=== PATIENT | male | born 1965 | race Caucasian/White ===

== ENCOUNTER 2018-07-31 20:40 | Inpatient (IN) | payer MEDICARE, MEDICAID ==
[~2018-07-31] VITALS: Ht 175.3 cm; Wt 88.0 kg
[~2018-07-31 20:40] MED LIST: QUET300T2 PO; ZIPR40CA2 PO; ZIPR80CA2 PO
[2018-07-31] MEDS ORDERED: LOSA25TA16 PO (20:52)
[2018-07-31] MEDS ORDERED: BENZ1TAB10 PO (20:52)
[2018-07-31 20:58] LABS: GLUCOSE,POINT OF CARE 112 MG/DL (70-110)
[2018-07-31 21:08] LABS: CALCIUM, TOTAL 8.6 mg/dL (8.8-10.5); CREATININE 1.37 mg/dL (0.60-1.30); POTASSIUM 4.7 mmol/L (3.5-5.1)
[2018-07-31 21:11] LABS: BASOPHILS % (AUTO) 0.6 % (0.0-2.0); EOSINOPHILS % (AUTO) 0 % (1.0-6.0); LYMPHOCYTES # (AUTO) 1.7 K/uL (1.0-4.8); LYMPHOCYTES % (AUTO) 16.5 % (22.0-44.0); MEAN CORPUSCULAR HEMOGLOBIN 32.5 pg (26.0-34.0); MEAN CORPUSCULAR VOLUME 93 fL (80-100); MONOCYTES # (AUTO) 0.4 K/uL (0.1-1.0); MONOCYTES % (AUTO) 4.1 % (2.0-9.0); NEUTROPHILS # (AUTO) 8.3 K/uL (1.8-7.7); NEUTROPHILS % (AUTO) 78.8 % (40.0-70.0); PLATELET COUNT (AUTO) 246 K/uL (150-450); RED CELL DISTRIBUTION WIDTH 14.4 % (11.5-14.5)
[2018-07-31 21:15] LABS: ALBUMIN 4.6 g/dL (3.4-5.0); BILIRUBIN,TOTAL 0.7 mg/dL (0.1-1.0); TOTAL PROTEIN, SERUM 8.2 g/dL (6.4-8.2)
[2018-07-31] MEDS ORDERED: LORazepam 1 MG TABLET PO ONE (21:15)
[2018-07-31 21:33] LABS: HEMATOCRIT 57.7 % (41-53); HEMOGLOBIN 20.2 g/dL (13.5-17.5)
[2018-07-31 23:36] LABS: AMPHET/METH SCREEN,URINE NEGATIVE (NEGATIVE); BARBITURATE SCREEN, URINE NEGATIVE (NEGATIVE); BENZODIAZEPINES SCREEN,URINE NEGATIVE (NEGATIVE); CANNABINOID SCREEN,URINE NEGATIVE (NEGATIVE); COCAINE SCREEN,URINE NEGATIVE (NEGATIVE); METHADONE SCREEN, URINE NEGATIVE (NEGATIVE); OPIATE SCREEN,URINE NEGATIVE (NEGATIVE); PHENCYCLIDINE SCREEN,URINE NEGATIVE (NEGATIVE)
[2018-08-01] MEDS ORDERED: ONDANSETRON HCL 4 MG TABLET PO ONE (00:30)
[2018-08-01] MEDS ORDERED: ZOLPIDEM TARTRATE 10 MG TABLET PO PRN (02:30)
[2018-08-01] MEDS ORDERED: LORazepam 2 MG TABLET ONE (02:51)
[2018-08-01] MEDS: LORazepam 2 MG TABLET PO PRN (02:57)
[2018-08-01] MEDS ORDERED: QUEtiapine FUMARATE 300 MG TABLET PO ONE ×2 (03:45→21:00)
[2018-08-01] MEDS ORDERED: SODIUM CHLORIDE 0.9% 1,000 ML IV ONE (08:00)
[2018-08-01 12:42] VITALS: BP 126/94
[2018-08-01] MEDS ORDERED: PNEUMOCOCCAL VACCINE POLYVALENT 0.5 ML VIAL [PPSV23] IM ONE (15:00)
[2018-08-01 16:00] VITALS: BP 118/92
[2018-08-01] MEDS: NICOTINE 14 MG/24 HOUR PATCH TD SCH (16:26)
[2018-08-02] VITALS (8 sets, daily range): BP systolic 116–139; BP diastolic 70–84
[2018-08-02] MEDS: LOSARTAN POTASSIUM 25 MG TABLET PO SCH (08:31)
[2018-08-02] MEDS: LORazepam 2 MG TABLET PO PRN (08:33)
[2018-08-02] MEDS: NICOTINE 14 MG/24 HOUR PATCH TD SCH (08:34)
[2018-08-02 08:49] LABS: CHOL/HDL RATIO 2.9 (4.2-7.3)
[2018-08-02] MEDS: BENZTROPINE MESYLATE 1 MG TABLET PO SCH (12:37)
[2018-08-02] MEDS: GABAPENTIN 100 MG CAPSULE PO SCH ×3 (12:37→20:45)
[2018-08-02] MEDS: QUEtiapine FUMARATE 300 MG TABLET PO SCH ×2 (12:37→20:45)
[2018-08-02] MEDS: TraMADol HCL 50 MG TABLET PO PRN (15:02)
[2018-08-03 01:17] VITALS: BP 110/82
[2018-08-03] MEDS: LOSARTAN POTASSIUM 25 MG TABLET PO SCH (08:08)
[2018-08-03] MEDS: BENZTROPINE MESYLATE 1 MG TABLET PO SCH (08:08)
[2018-08-03] MEDS: QUEtiapine FUMARATE 300 MG TABLET PO SCH ×2 (08:08→20:08)
[2018-08-03] MEDS: NICOTINE 14 MG/24 HOUR PATCH TD SCH (08:09)
[2018-08-03] MEDS: GABAPENTIN 100 MG CAPSULE PO SCH ×3 (08:09→20:07)
[2018-08-03] MEDS: LORazepam 2 MG TABLET PO PRN (09:11)
[2018-08-03 10:08] VITALS: BP 119/78
[2018-08-03 16:32] VITALS: BP 128/70
[2018-08-03 20:33] VITALS: BP 123/90
[2018-08-03] MEDS: TraMADol HCL 50 MG TABLET PO PRN (20:33)
[2018-08-04 00:35] VITALS: BP 139/87
[2018-08-04] MEDS: LOSARTAN POTASSIUM 25 MG TABLET PO SCH (08:14)
[2018-08-04] MEDS: BENZTROPINE MESYLATE 1 MG TABLET PO SCH (08:14)
[2018-08-04] MEDS: QUEtiapine FUMARATE 300 MG TABLET PO SCH ×2 (08:14→20:31)
[2018-08-04] MEDS: GABAPENTIN 100 MG CAPSULE PO SCH ×3 (08:14→20:31)
[2018-08-04] MEDS: NICOTINE 14 MG/24 HOUR PATCH TD SCH (08:15)
[2018-08-04 08:38] VITALS: BP 120/78
[2018-08-04 16:00] VITALS: BP 117/88
[2018-08-04 21:03] VITALS: BP 123/83
[2018-08-04] MEDS: TraMADol HCL 50 MG TABLET PO PRN (21:06)
[2018-08-05 04:44] VITALS: BP 120/81
[2018-08-05 08:44] VITALS: BP 121/71
[2018-08-05] MEDS: BENZTROPINE MESYLATE 1 MG TABLET PO SCH (09:34)
[2018-08-05] MEDS: NICOTINE 14 MG/24 HOUR PATCH TD SCH (09:34)
[2018-08-05] MEDS: QUEtiapine FUMARATE 300 MG TABLET PO SCH (09:34)
[2018-08-05] MEDS: GABAPENTIN 100 MG CAPSULE PO SCH (09:34)
[2018-08-05] MEDS: LOSARTAN POTASSIUM 25 MG TABLET PO SCH (09:38)
[2018-08-05] MEDS ORDERED: QUET50TA PO (12:23)
[2018-08-05] MEDS ORDERED: GABA-529 PO (12:24)
[2018-08-05] MEDS ORDERED: NICO1PAT49 TD (12:26)
== END 2018-08-05 13:30 | disposition home or self-care (01) | DRG 885 ==
LOC: EMS 20:41 → B2X 08-01 10:54
PROVIDERS: ADMIT Psychiatry & Neurology Psychiatry; ATTEND Psychiatry & Neurology Child & Adolescent Psychiatry
DX: F25.1 Schizoaffective disorder, depressive type (principal); B18.1 Chronic viral hepatitis B without delta-agent; R45.851 Suicidal ideations; Z23 Encounter for immunization; J44.9 Chronic obstructive pulmonary disease, unspecified; I10 Essential (primary) hypertension; K74.60 Unspecified cirrhosis of liver; D75.1 Secondary polycythemia; Z91.5 Personal history of self-harm; B19.20 Unspecified viral hepatitis C without hepatic coma; F10.10 Alcohol abuse, uncomplicated; Z88.8 Allergy status to other drugs, medicaments and biological substances; Z96.662 Presence of left artificial ankle joint
CPT/HCPCS: 90686; 90732; 96360; G0480; J7030; Q0162

== ENCOUNTER 2018-10-05 20:05 | Emergency (ER) | payer MEDICARE, OTHER ==
[~2018-10-05] VITALS: Ht 167.6 cm; Wt 94.0 kg
[~2018-10-05 20:05] MED LIST changes: +BENZ1TAB10 PO; +GABA-529 PO; +LOSA25TA41 PO; +NICO1PAT49 TD; +QUET50TA PO; -ZIPR40CA2 PO; -ZIPR80CA2 PO
[2018-10-05 22:40] LABS: AMPHET/METH SCREEN,URINE NEGATIVE (NEGATIVE); BARBITURATE SCREEN, URINE NEGATIVE (NEGATIVE); BENZODIAZEPINES SCREEN,URINE NEGATIVE (NEGATIVE); CANNABINOID SCREEN,URINE NEGATIVE (NEGATIVE); COCAINE SCREEN,URINE NEGATIVE (NEGATIVE); METHADONE SCREEN, URINE NEGATIVE (NEGATIVE); OPIATE SCREEN,URINE NEGATIVE (NEGATIVE)
[2018-10-05 22:42] LABS: PHENCYCLIDINE SCREEN,URINE NEGATIVE (NEGATIVE)
[2018-10-06 00:24] VITALS: BP 141/78
== END 2018-10-06 00:38 | disposition home or self-care (01) ==
LOC: EMS 20:06
DX: F10.229 Alcohol dependence with intoxication, unspecified (principal); I10 Essential (primary) hypertension; J44.9 Chronic obstructive pulmonary disease, unspecified; Y90.8 Blood alcohol level of 240 mg/100 ml or more; Z88.8 Allergy status to other drugs, medicaments and biological substances; Z79.899 Other long term (current) drug therapy
CPT/HCPCS: 36415; 80307; 99283; G0480

== ENCOUNTER 2018-10-06 00:55 | Emergency (ER) | payer MEDICARE, OTHER ==
[~2018-10-06] VITALS: Ht 167.6 cm; Wt 77.3 kg
[2018-10-06 00:58] VITALS: BP 134/84
== END 2018-10-06 02:36 | disposition left against medical advice (07) ==
LOC: EMS 00:56
DX: Z53.21 Procedure and treatment not carried out due to patient leaving prior to being seen by health care provider (principal)

== ENCOUNTER 2018-10-21 17:51 | Inpatient (IN) | payer MEDICARE, MEDICAID ==
[~2018-10-21] VITALS: Ht 175.3 cm; Wt 92.1 kg
[2018-10-21 18:26] VITALS: BP 129/86
[2018-10-21] MEDS ORDERED: LORazepam 2 MG TABLET PO PRN (19:00)
[2018-10-21] MEDS ORDERED: ZOLPIDEM TARTRATE 10 MG TABLET PO PRN (19:00)
[2018-10-21] MEDS ORDERED: ChlorproMAZINE HCL 100 MG TABLET PO PRN (19:00)
[2018-10-21] MEDS ORDERED: -PHARMACY VACCINE NOTE- MISC ONE (19:45)
[2018-10-21 19:46] VITALS: BP 142/70
[2018-10-21] MEDS: QUEtiapine FUMARATE 200 MG TABLET PO SCH (20:24)
[2018-10-21] MEDS: GABAPENTIN 400 MG CAPSULE PO SCH (20:24)
[2018-10-21] MEDS ORDERED: MAGNESIUM HYDROXIDE SUSPENSION 30 ML UDCUP PO PRN (22:30)
[2018-10-21] MEDS ORDERED: PETROLATUM,WHITE 71 GM JELLY TP PRN (22:30)
[2018-10-21] MEDS ORDERED: BENZOCAINE/MENTHOL LOZENGE MM PRN (22:30)
[2018-10-21] MEDS ORDERED: BACITRACIN 28.4 GM OINTMENT TP PRN (22:30)
[2018-10-21] MEDS ORDERED: ACETAMINOPHEN 325 MG TABLET PO PRN (22:30)
[2018-10-21] MEDS ORDERED: LOPERAMIDE HCL 2 MG CAPSULE PO PRN (22:30)
[2018-10-21] MEDS ORDERED: IBUPROFEN 600 MG TABLET PO PRN (22:30)
[2018-10-21] MEDS ORDERED: MAG HYDROX/AL HYDROX/SIMETH ES 30 ML SUSPENSION UDCUP PO PRN (22:30)
[2018-10-21] MEDS ORDERED: ALBUTEROL SULFATE HFA 90 MCG/PUFF 8 GM INHALER IH PRN (22:30)
[2018-10-21] MEDS ORDERED: ONDANSETRON HCL 4 MG TABLET PO PRN (22:30)
[2018-10-21] MEDS ORDERED: CloNIDine HCL 0.1 MG TABLET PO PRN (22:30)
[2018-10-22] VITALS (13 sets, daily range): BP systolic 107–139; BP diastolic 68–92
[2018-10-22] MEDS: DOCUSATE SODIUM 100 MG CAPSULE PO SCH (08:27)
[2018-10-22] MEDS: OMEPRAZOLE 20 MG CAPSULE PO SCH (08:27)
[2018-10-22] MEDS: LOSARTAN POTASSIUM 25 MG TABLET PO SCH (08:27)
[2018-10-22] MEDS: GABAPENTIN 400 MG CAPSULE PO SCH ×3 (08:27→16:31)
[2018-10-22] MEDS: QUEtiapine FUMARATE 100 MG TABLET PO SCH ×2 (08:27→16:31)
[2018-10-22] MEDS: NICOTINE 21 MG/24 HOUR PATCH TD SCH (08:28)
[2018-10-22 08:34] LABS: BASOPHILS % (AUTO) 0.5 % (0.0-2.0); EOSINOPHILS % (AUTO) 0.2 % (1.0-6.0); HEMOGLOBIN 16.6 g/dL (13.5-17.5); HEMOGLOBIN A1C 5.6 % (4.5-6.2); LYMPHOCYTES # (AUTO) 1.4 K/uL (1.0-4.8); LYMPHOCYTES % (AUTO) 16.4 % (22.0-44.0); MEAN CORPUSCULAR HEMOGLOBIN 31.8 pg (26.0-34.0); MEAN CORPUSCULAR HGB CONC 34.6 G/dL (31.0-37.0); MEAN CORPUSCULAR VOLUME 92 fL (80-100); MONOCYTES # (AUTO) 0.8 K/uL (0.1-1.0); MONOCYTES % (AUTO) 9.3 % (2.0-9.0); NEUTROPHILS # (AUTO) 6.5 K/uL (1.8-7.7); NEUTROPHILS % (AUTO) 73.6 % (40.0-70.0); PLATELET COUNT (AUTO) 215 K/uL (150-450); RED BLOOD CELL COUNT(AUTO) 5.22 MIL/uL (4.50-5.90); RED CELL DISTRIBUTION WIDTH 13.9 % (11.5-14.5)
[2018-10-22 09:03] LABS: ALANINE AMINOTRANSFERASE 153 U/L (12-78); ALBUMIN 3.6 g/dL (3.4-5.0); ALKALINE PHOSPHATASE 70 U/L (46-116); ANION GAP 14 mmol/L (8-16); ASPARTATE AMINOTRANSFERASE 75 U/L (15-37); BILIRUBIN,TOTAL 0.9 mg/dL (0.1-1.0); CALCIUM, TOTAL 8.1 mg/dL (8.8-10.5); CARBON DIOXIDE 24 mmol/L (22-29); CHLORIDE 94 mmol/L (98-107); CHOL/HDL RATIO 3.6 (4.2-7.3); CHOLESTEROL 229 mg/dL (131-200); CREATININE 0.95 mg/dL (0.60-1.30); FREE T4 (FREE THYROXINE) 0.75 ng/dL (0.76-1.46); GLOMERULAR FILTR. RATE CALC > 60 mL/min (>60); GLUCOSE,RANDOM 102 mg/dL (70-110); HDL CHOLESTEROL 64 mg/dL (40-60); LDL CHOL (CALC.) 116 mg/dL (0-130); POTASSIUM 3.9 mmol/L (3.5-5.1); SODIUM SERUM 132 mmol/L (136-145); THYROID STIMULATING HORMONE 0.85 uIU/mL (0.36-3.74); TOTAL PROTEIN, SERUM 6.5 g/dL (6.4-8.2); TRIGLYCERIDES 245 mg/dL (15-150); UREA NITROGEN, BLOOD 13 mg/dL (7-18)
[2018-10-22] MEDS: SODIUM CHLORIDE 1 GM TABLET PO SCH ×2 (12:35→18:09)
[2018-10-22] MEDS ORDERED: LORazepam 2 MG TABLET PO ONE (17:00)
[2018-10-22] MEDS ORDERED: LORazepam 2 MG TABLET PO PRN (17:00)
[2018-10-22] MEDS: QUEtiapine FUMARATE 200 MG TABLET PO SCH (20:37)
[2018-10-23] VITALS (9 sets, daily range): BP systolic 111–144; BP diastolic 62–95
[2018-10-23] MEDS ORDERED: LORazepam 2 MG TABLET PO PRN (07:00)
[2018-10-23] MEDS: DOCUSATE SODIUM 100 MG CAPSULE PO SCH (08:20)
[2018-10-23] MEDS: NALTREXONE HCL 50 MG TABLET PO SCH (08:21)
[2018-10-23] MEDS: GABAPENTIN 400 MG CAPSULE PO SCH ×3 (08:21→17:06)
[2018-10-23] MEDS: OMEPRAZOLE 20 MG CAPSULE PO SCH (08:21)
[2018-10-23] MEDS: OMEGA-3/DHA/EPA/FISH OIL 1,000 MG CAPSULE PO SCH (08:21)
[2018-10-23] MEDS: SODIUM CHLORIDE 1 GM TABLET PO SCH ×2 (08:21→19:24)
[2018-10-23] MEDS: LORazepam 2 MG TABLET PO SCH ×4 (08:21→20:45)
[2018-10-23] MEDS: QUEtiapine FUMARATE 100 MG TABLET PO SCH ×3 (08:21→20:45)
[2018-10-23] MEDS: NICOTINE 21 MG/24 HOUR PATCH TD SCH (08:25)
[2018-10-23] MEDS ORDERED: LOSARTAN POTASSIUM 25 MG TABLET PO SCH (09:00)
[2018-10-23] MEDS ORDERED: GABAPENTIN 100 MG CAPSULE PO SCH (09:00)
[2018-10-23] MEDS ORDERED: NICOTINE 14 MG/24 HOUR PATCH TD SCH (09:00)
[2018-10-23] MEDS: LOSARTAN POTASSIUM 25 MG TABLET PO SCH (12:26)
[2018-10-23] MEDS: SIMVASTATIN 10 MG TABLET PO SCH (20:45)
[2018-10-23] MEDS ORDERED: QUEtiapine FUMARATE 200 MG TABLET PO ONE (21:30)
[2018-10-23] MEDS ORDERED: QUEtiapine FUMARATE 300 MG TABLET PO SCH (21:30)
[2018-10-23] MEDS ORDERED: QUEtiapine FUMARATE 100 MG TABLET PO ONE (21:45)
[2018-10-24 07:04] VITALS: BP 130/86
[2018-10-24 08:12] VITALS: BP 135/92
[2018-10-24 08:18] LABS: ANION GAP 8 mmol/L (8-16); CALCIUM, TOTAL 8.4 mg/dL (8.8-10.5); CARBON DIOXIDE 28 mmol/L (22-29); CHLORIDE 104 mmol/L (98-107); CREATININE 0.71 mg/dL (0.60-1.30); GLOMERULAR FILTR. RATE CALC > 60 mL/min (>60); GLUCOSE,RANDOM 105 mg/dL (70-110); POTASSIUM 3.8 mmol/L (3.5-5.1); SODIUM SERUM 140 mmol/L (136-145); UREA NITROGEN, BLOOD 9 mg/dL (7-18)
[2018-10-24] MEDS: OMEPRAZOLE 20 MG CAPSULE PO SCH (08:29)
[2018-10-24] MEDS: DOCUSATE SODIUM 100 MG CAPSULE PO SCH (08:29)
[2018-10-24] MEDS: SODIUM CHLORIDE 1 GM TABLET PO SCH (08:29)
[2018-10-24] MEDS: QUEtiapine FUMARATE 300 MG TABLET PO SCH ×2 (08:29→20:03)
[2018-10-24] MEDS: OMEGA-3/DHA/EPA/FISH OIL 1,000 MG CAPSULE PO SCH (08:29)
[2018-10-24] MEDS: GABAPENTIN 100 MG CAPSULE PO SCH ×3 (08:29→20:02)
[2018-10-24] MEDS: BENZTROPINE MESYLATE 1 MG TABLET PO SCH (08:29)
[2018-10-24] MEDS: LOSARTAN POTASSIUM 25 MG TABLET PO SCH (08:29)
[2018-10-24] MEDS: LORazepam 2 MG TABLET PO SCH ×4 (08:29→20:02)
[2018-10-24] MEDS: NICOTINE 21 MG/24 HOUR PATCH TD SCH (08:30)
[2018-10-24] MEDS: NALTREXONE HCL 50 MG TABLET PO SCH (08:30)
[2018-10-24 16:07] VITALS: BP 122/83
[2018-10-24 19:38] VITALS: BP 126/82
[2018-10-24] MEDS: SIMVASTATIN 10 MG TABLET PO SCH (20:02)
[2018-10-25 00:51] VITALS: BP 126/75
[2018-10-25] MEDS ORDERED: LORazepam 1 MG TABLET PO PRN (07:00)
[2018-10-25 07:50] VITALS: BP 122/90
[2018-10-25] MEDS: OMEGA-3/DHA/EPA/FISH OIL 1,000 MG CAPSULE PO SCH (08:48)
[2018-10-25] MEDS: QUEtiapine FUMARATE 300 MG TABLET PO SCH ×2 (08:48→20:05)
[2018-10-25] MEDS: LOSARTAN POTASSIUM 25 MG TABLET PO SCH (08:48)
[2018-10-25] MEDS: GABAPENTIN 100 MG CAPSULE PO SCH ×3 (08:48→20:05)
[2018-10-25] MEDS: BENZTROPINE MESYLATE 1 MG TABLET PO SCH (08:48)
[2018-10-25] MEDS: OMEPRAZOLE 20 MG CAPSULE PO SCH (08:48)
[2018-10-25] MEDS: DOCUSATE SODIUM 100 MG CAPSULE PO SCH (08:48)
[2018-10-25] MEDS: LORazepam 1 MG TABLET PO SCH ×4 (08:48→20:05)
[2018-10-25] MEDS: NALTREXONE HCL 50 MG TABLET PO SCH (08:48)
[2018-10-25] MEDS: NICOTINE 21 MG/24 HOUR PATCH TD SCH (08:49)
[2018-10-25 09:15] VITALS: BP 122/90
[2018-10-25 16:02] VITALS: BP 120/82
[2018-10-25] MEDS: SIMVASTATIN 10 MG TABLET PO SCH (20:05)
[2018-10-25] MEDS: RisperiDONE 1 MG TABLET PO SCH (20:05)
[2018-10-26 02:40] VITALS: BP 118/78
[2018-10-26] MEDS ORDERED: LORazepam 1 MG TABLET PO PRN (07:00)
[2018-10-26 08:34] VITALS: BP 133/82
[2018-10-26] MEDS: BENZTROPINE MESYLATE 1 MG TABLET PO SCH (08:46)
[2018-10-26] MEDS: LOSARTAN POTASSIUM 25 MG TABLET PO SCH (08:46)
[2018-10-26] MEDS: GABAPENTIN 100 MG CAPSULE PO SCH ×3 (08:47→20:04)
[2018-10-26] MEDS: DOCUSATE SODIUM 100 MG CAPSULE PO SCH (08:47)
[2018-10-26] MEDS: NICOTINE 21 MG/24 HOUR PATCH TD SCH (08:47)
[2018-10-26] MEDS: NALTREXONE HCL 50 MG TABLET PO SCH (08:47)
[2018-10-26] MEDS: OMEGA-3/DHA/EPA/FISH OIL 1,000 MG CAPSULE PO SCH (08:47)
[2018-10-26] MEDS: QUEtiapine FUMARATE 300 MG TABLET PO SCH ×2 (08:47→20:04)
[2018-10-26] MEDS: OMEPRAZOLE 20 MG CAPSULE PO SCH (08:47)
[2018-10-26 16:08] VITALS: BP 124/84
[2018-10-26] MEDS: SIMVASTATIN 10 MG TABLET PO SCH (20:04)
[2018-10-26] MEDS: RisperiDONE 1 MG TABLET PO SCH (20:04)
[2018-10-27 00:10] VITALS: BP 118/68
[2018-10-27 08:16] VITALS: BP 120/80
[2018-10-27] MEDS: DOCUSATE SODIUM 100 MG CAPSULE PO SCH (09:08)
[2018-10-27] MEDS: LOSARTAN POTASSIUM 25 MG TABLET PO SCH (09:08)
[2018-10-27] MEDS: QUEtiapine FUMARATE 300 MG TABLET PO SCH ×2 (09:08→20:30)
[2018-10-27] MEDS: BENZTROPINE MESYLATE 1 MG TABLET PO SCH (09:08)
[2018-10-27] MEDS: OMEGA-3/DHA/EPA/FISH OIL 1,000 MG CAPSULE PO SCH (09:08)
[2018-10-27] MEDS: GABAPENTIN 100 MG CAPSULE PO SCH ×3 (09:08→20:30)
[2018-10-27] MEDS: NICOTINE 21 MG/24 HOUR PATCH TD SCH (09:11)
[2018-10-27] MEDS: OMEPRAZOLE 20 MG CAPSULE PO SCH (11:03)
[2018-10-27] MEDS: NALTREXONE HCL 50 MG TABLET PO SCH (11:03)
[2018-10-27 16:02] VITALS: BP 101/84
[2018-10-27] MEDS: SIMVASTATIN 10 MG TABLET PO SCH (20:30)
[2018-10-27] MEDS ORDERED: RisperiDONE 2 MG TABLET PO SCH (21:00)
[2018-10-28 01:22] VITALS: BP 111/74
[2018-10-28 07:23] LABS: BAND NEUTROPHILS % (MANUAL) 0 % (0-5)
[2018-10-28 07:27] LABS: HEMOGLOBIN 16.5 g/dL (13.5-17.5); MEAN CORPUSCULAR HEMOGLOBIN 33.3 pg (26.0-34.0); MEAN CORPUSCULAR HGB CONC 35.9 G/dL (31.0-37.0); MEAN CORPUSCULAR VOLUME 93 fL (80-100); PLATELET COUNT (AUTO) 153 K/uL (150-450); RED BLOOD CELL COUNT(AUTO) 4.96 MIL/uL (4.50-5.90); RED CELL DISTRIBUTION WIDTH 13.7 % (11.5-14.5)
[2018-10-28 08:01] LABS: ANION GAP 5 mmol/L (8-16); CALCIUM, TOTAL 8.5 mg/dL (8.8-10.5); CARBON DIOXIDE 30 mmol/L (22-29); CHLORIDE 103 mmol/L (98-107); CREATININE 0.94 mg/dL (0.60-1.30); GLOMERULAR FILTR. RATE CALC > 60 mL/min (>60); GLUCOSE,RANDOM 97 mg/dL (70-110); POTASSIUM 4.2 mmol/L (3.5-5.1); SODIUM SERUM 138 mmol/L (136-145); UREA NITROGEN, BLOOD 15 mg/dL (7-18)
[2018-10-28 08:04] VITALS: BP 117/72
[2018-10-28] MEDS: DOCUSATE SODIUM 100 MG CAPSULE PO SCH (08:23)
[2018-10-28] MEDS: LOSARTAN POTASSIUM 25 MG TABLET PO SCH (08:23)
[2018-10-28] MEDS: BENZTROPINE MESYLATE 1 MG TABLET PO SCH (08:23)
[2018-10-28] MEDS: OMEGA-3/DHA/EPA/FISH OIL 1,000 MG CAPSULE PO SCH (08:23)
[2018-10-28] MEDS: NALTREXONE HCL 50 MG TABLET PO SCH (08:23)
[2018-10-28] MEDS: QUEtiapine FUMARATE 300 MG TABLET PO SCH ×2 (08:23→20:15)
[2018-10-28] MEDS: GABAPENTIN 100 MG CAPSULE PO SCH ×3 (08:23→20:15)
[2018-10-28] MEDS: OMEPRAZOLE 20 MG CAPSULE PO SCH (08:23)
[2018-10-28] MEDS: NICOTINE 21 MG/24 HOUR PATCH TD SCH (08:24)
[2018-10-28 09:35] LABS: BASOPHILS % (MANUAL) 1 % (0-2); EOSINOPHILS % (MANUAL) 1 % (1-6); LYMPHOCYTES % (MANUAL) 38 % (22-44); MONOCYTES % (MANUAL) 13 % (2-9); SEGMENTED NEUTROPHILS % 47 % (40-70)
[2018-10-28 16:13] VITALS: BP 114/62
[2018-10-28] MEDS: RisperiDONE 3 MG TABLET PO SCH (20:14)
[2018-10-28] MEDS: SIMVASTATIN 10 MG TABLET PO SCH (20:14)
[2018-10-29 01:30] VITALS: BP 116/73
[2018-10-29 08:26] VITALS: BP 126/81
[2018-10-29] MEDS: OMEPRAZOLE 20 MG CAPSULE PO SCH (08:36)
[2018-10-29] MEDS: BENZTROPINE MESYLATE 1 MG TABLET PO SCH (08:36)
[2018-10-29] MEDS: GABAPENTIN 100 MG CAPSULE PO SCH ×3 (08:36→20:03)
[2018-10-29] MEDS: QUEtiapine FUMARATE 300 MG TABLET PO SCH ×2 (08:36→20:03)
[2018-10-29] MEDS: DOCUSATE SODIUM 100 MG CAPSULE PO SCH (08:37)
[2018-10-29] MEDS: LOSARTAN POTASSIUM 25 MG TABLET PO SCH (08:37)
[2018-10-29] MEDS: NALTREXONE HCL 50 MG TABLET PO SCH (08:37)
[2018-10-29] MEDS: OMEGA-3/DHA/EPA/FISH OIL 1,000 MG CAPSULE PO SCH (08:37)
[2018-10-29] MEDS: NICOTINE 21 MG/24 HOUR PATCH TD SCH (08:37)
[2018-10-29 16:05] VITALS: BP 107/65
[2018-10-29] MEDS: SIMVASTATIN 10 MG TABLET PO SCH (20:03)
[2018-10-29] MEDS: RisperiDONE 3 MG TABLET PO SCH (20:04)
[2018-10-30 02:47] VITALS: BP 124/65
[2018-10-30 08:33] VITALS: BP 136/79
[2018-10-30] MEDS: OMEGA-3/DHA/EPA/FISH OIL 1,000 MG CAPSULE PO SCH (08:36)
[2018-10-30] MEDS: DOCUSATE SODIUM 100 MG CAPSULE PO SCH (08:36)
[2018-10-30] MEDS: NALTREXONE HCL 50 MG TABLET PO SCH (08:36)
[2018-10-30] MEDS: GABAPENTIN 100 MG CAPSULE PO SCH ×3 (08:36→20:12)
[2018-10-30] MEDS: LOSARTAN POTASSIUM 25 MG TABLET PO SCH (08:36)
[2018-10-30] MEDS: QUEtiapine FUMARATE 300 MG TABLET PO SCH ×2 (08:36→20:12)
[2018-10-30] MEDS: BENZTROPINE MESYLATE 1 MG TABLET PO SCH (08:36)
[2018-10-30] MEDS: NICOTINE 21 MG/24 HOUR PATCH TD SCH (08:37)
[2018-10-30] MEDS: OMEPRAZOLE 20 MG CAPSULE PO SCH (08:37)
[2018-10-30] MEDS ORDERED: NALT50TA PO (16:11)
[2018-10-30] MEDS ORDERED: OMEG-135 PO (16:11)
[2018-10-30] MEDS ORDERED: GABA-529 PO (16:11)
[2018-10-30] MEDS ORDERED: BENZ1TAB10 PO (16:11)
[2018-10-30] MEDS ORDERED: QUET300T18 PO (16:11)
[2018-10-30 16:12] VITALS: BP 122/89
[2018-10-30] MEDS: SIMVASTATIN 10 MG TABLET PO SCH (20:12)
[2018-10-31 03:18] VITALS: BP 123/75
[2018-10-31] MEDS: GABAPENTIN 100 MG CAPSULE PO SCH ×3 (08:23→20:17)
[2018-10-31] MEDS: OMEGA-3/DHA/EPA/FISH OIL 1,000 MG CAPSULE PO SCH (08:23)
[2018-10-31] MEDS: NICOTINE 21 MG/24 HOUR PATCH TD SCH (08:23)
[2018-10-31] MEDS: NALTREXONE HCL 50 MG TABLET PO SCH (08:24)
[2018-10-31] MEDS: DOCUSATE SODIUM 100 MG CAPSULE PO SCH (08:24)
[2018-10-31] MEDS: BENZTROPINE MESYLATE 1 MG TABLET PO SCH (08:24)
[2018-10-31] MEDS: OMEPRAZOLE 20 MG CAPSULE PO SCH (08:24)
[2018-10-31] MEDS: QUEtiapine FUMARATE 300 MG TABLET PO SCH ×2 (08:24→20:17)
[2018-10-31 08:25] VITALS: BP 133/80
[2018-10-31] MEDS: LOSARTAN POTASSIUM 25 MG TABLET PO SCH (08:26)
[2018-10-31] MEDS ORDERED: SIMV-259 PO (08:36)
[2018-10-31] MEDS ORDERED: NALT50TA6 PO (08:36)
[2018-10-31] MEDS ORDERED: OMEG-135 PO (08:36)
[2018-10-31] MEDS ORDERED: LORazepam 2 MG TABLET PO PRN (12:00)
[2018-10-31] MEDS ORDERED: RisperiDONE MICROSPHERES 50 MG/2 ML SYRINGE IM ONE (12:45)
[2018-10-31 13:01] VITALS: BP 130/86
[2018-10-31 16:14] VITALS: BP 127/79
[2018-10-31] MEDS: SIMVASTATIN 10 MG TABLET PO SCH (20:17)
[2018-11-01 00:24] VITALS: BP 126/85
[2018-11-01] MEDS: QUEtiapine FUMARATE 300 MG TABLET PO SCH ×2 (08:09→20:15)
[2018-11-01] MEDS: OMEGA-3/DHA/EPA/FISH OIL 1,000 MG CAPSULE PO SCH (08:09)
[2018-11-01] MEDS: OMEPRAZOLE 20 MG CAPSULE PO SCH (08:09)
[2018-11-01] MEDS: NALTREXONE HCL 50 MG TABLET PO SCH (08:09)
[2018-11-01] MEDS: BENZTROPINE MESYLATE 1 MG TABLET PO SCH (08:10)
[2018-11-01] MEDS: DOCUSATE SODIUM 100 MG CAPSULE PO SCH (08:10)
[2018-11-01] MEDS: NICOTINE 21 MG/24 HOUR PATCH TD SCH (08:10)
[2018-11-01] MEDS: LOSARTAN POTASSIUM 25 MG TABLET PO SCH (08:10)
[2018-11-01] MEDS: GABAPENTIN 100 MG CAPSULE PO SCH ×3 (08:10→20:15)
[2018-11-01 08:52] VITALS: BP 129/74
[2018-11-01 16:18] VITALS: BP 116/71
[2018-11-01] MEDS: SIMVASTATIN 10 MG TABLET PO SCH (20:15)
[2018-11-02 06:20] VITALS: BP 121/70
[2018-11-02 08:00] VITALS: BP 110/76
[2018-11-02] MEDS: NALTREXONE HCL 50 MG TABLET PO SCH (08:00)
[2018-11-02] MEDS: OMEPRAZOLE 20 MG CAPSULE PO SCH (08:00)
[2018-11-02] MEDS: OMEGA-3/DHA/EPA/FISH OIL 1,000 MG CAPSULE PO SCH (08:00)
[2018-11-02] MEDS: DOCUSATE SODIUM 100 MG CAPSULE PO SCH (08:00)
[2018-11-02] MEDS: LOSARTAN POTASSIUM 25 MG TABLET PO SCH (08:01)
[2018-11-02] MEDS: BENZTROPINE MESYLATE 1 MG TABLET PO SCH (08:01)
[2018-11-02] MEDS: GABAPENTIN 100 MG CAPSULE PO SCH ×3 (08:01→20:11)
[2018-11-02] MEDS: NICOTINE 21 MG/24 HOUR PATCH TD SCH (08:01)
[2018-11-02] MEDS: QUEtiapine FUMARATE 300 MG TABLET PO SCH ×2 (08:01→20:11)
[2018-11-02 16:19] VITALS: BP 119/78
[2018-11-02] MEDS: SIMVASTATIN 10 MG TABLET PO SCH (20:11)
[2018-11-03 06:00] VITALS: BP 120/85
[2018-11-03] MEDS: GABAPENTIN 100 MG CAPSULE PO SCH ×3 (08:14→20:18)
[2018-11-03] MEDS: LOSARTAN POTASSIUM 25 MG TABLET PO SCH (08:14)
[2018-11-03] MEDS: BENZTROPINE MESYLATE 1 MG TABLET PO SCH (08:14)
[2018-11-03] MEDS: DOCUSATE SODIUM 100 MG CAPSULE PO SCH (08:14)
[2018-11-03] MEDS: QUEtiapine FUMARATE 300 MG TABLET PO SCH ×2 (08:14→20:19)
[2018-11-03] MEDS: NALTREXONE HCL 50 MG TABLET PO SCH (08:14)
[2018-11-03] MEDS: OMEPRAZOLE 20 MG CAPSULE PO SCH (08:14)
[2018-11-03] MEDS: OMEGA-3/DHA/EPA/FISH OIL 1,000 MG CAPSULE PO SCH (08:14)
[2018-11-03] MEDS: NICOTINE 21 MG/24 HOUR PATCH TD SCH (08:15)
[2018-11-03 09:32] VITALS: BP 130/83
[2018-11-03 16:11] VITALS: BP 118/74
[2018-11-03] MEDS: SIMVASTATIN 10 MG TABLET PO SCH (20:19)
[2018-11-04 00:48] VITALS: BP 113/64
[2018-11-04] MEDS: NALTREXONE HCL 50 MG TABLET PO SCH (08:14)
[2018-11-04] MEDS: QUEtiapine FUMARATE 300 MG TABLET PO SCH ×2 (08:14→20:34)
[2018-11-04] MEDS: DOCUSATE SODIUM 100 MG CAPSULE PO SCH (08:14)
[2018-11-04] MEDS: GABAPENTIN 100 MG CAPSULE PO SCH ×3 (08:14→20:33)
[2018-11-04] MEDS: OMEGA-3/DHA/EPA/FISH OIL 1,000 MG CAPSULE PO SCH (08:14)
[2018-11-04] MEDS: NICOTINE 21 MG/24 HOUR PATCH TD SCH (08:14)
[2018-11-04] MEDS: OMEPRAZOLE 20 MG CAPSULE PO SCH (08:14)
[2018-11-04] MEDS: LOSARTAN POTASSIUM 25 MG TABLET PO SCH (08:14)
[2018-11-04] MEDS: BENZTROPINE MESYLATE 1 MG TABLET PO SCH (08:14)
[2018-11-04 08:44] VITALS: BP 123/78
[2018-11-04 16:12] VITALS: BP 110/64
[2018-11-04] MEDS: SIMVASTATIN 10 MG TABLET PO SCH (20:33)
[2018-11-05 05:03] VITALS: BP 138/86
[2018-11-05] MEDS: GABAPENTIN 100 MG CAPSULE PO SCH (08:12)
[2018-11-05] MEDS: BENZTROPINE MESYLATE 1 MG TABLET PO SCH (08:12)
[2018-11-05] MEDS: NALTREXONE HCL 50 MG TABLET PO SCH (08:12)
[2018-11-05] MEDS: DOCUSATE SODIUM 100 MG CAPSULE PO SCH (08:12)
[2018-11-05] MEDS: QUEtiapine FUMARATE 300 MG TABLET PO SCH (08:12)
[2018-11-05] MEDS: OMEPRAZOLE 20 MG CAPSULE PO SCH (08:12)
[2018-11-05] MEDS: OMEGA-3/DHA/EPA/FISH OIL 1,000 MG CAPSULE PO SCH (08:12)
[2018-11-05] MEDS: LOSARTAN POTASSIUM 25 MG TABLET PO SCH (08:12)
[2018-11-05] MEDS: NICOTINE 21 MG/24 HOUR PATCH TD SCH (08:13)
[2018-11-05 08:15] VITALS: BP 121/79
[2018-11-05] MEDS ORDERED: GABA-529 PO (08:48)
[2018-11-05] MEDS ORDERED: QUET400T PO (08:49)
[2018-11-05] MEDS ORDERED: QUET50TA PO (08:49)
[2018-11-05] MEDS ORDERED: BENZ1TAB10 PO (09:28)
[2018-11-05] MEDS ORDERED: LOSA25TA41 PO (09:29)
[2018-11-05] MEDS ORDERED: DSS100 PO (09:29)
[2018-11-05] MEDS ORDERED: SIMV-259 PO (09:29)
[2018-11-05] MEDS ORDERED: OMEP20 PO (09:30)
[2018-11-05] MEDS ORDERED: RISPC50 IM (09:32)
[2018-11-05] MEDS ORDERED: FISH1 PO (09:39)
[2018-11-14] MEDS ORDERED: RisperiDONE MICROSPHERES 50 MG/2 ML SYRINGE IM SCH (09:00)
== END 2018-11-05 10:15 | disposition home or self-care (01) | DRG 885 ==
LOC: B2X 19:07
PROVIDERS: ADMIT Psychiatry & Neurology Psychiatry; ATTEND Psychiatry & Neurology Psychiatry
DX: F25.0 Schizoaffective disorder, bipolar type (principal); B19.20 Unspecified viral hepatitis C without hepatic coma; E87.1 Hypo-osmolality and hyponatremia; R45.851 Suicidal ideations; E78.00 Pure hypercholesterolemia, unspecified; E78.5 Hyperlipidemia, unspecified; I10 Essential (primary) hypertension; J44.9 Chronic obstructive pulmonary disease, unspecified; Z59.0 Homelessness; Z79.899 Other long term (current) drug therapy; Z91.14 Patient's other noncompliance with medication regimen; Z91.19 Patient's noncompliance with other medical treatment and regimen; Z88.8 Allergy status to other drugs, medicaments and biological substances
CPT/HCPCS: 83036; 83735; 84100; 84439; 84443; 85007; J2794; Q0162

== ENCOUNTER 2018-11-07 10:41 | Inpatient (IN) | payer MEDICARE, MEDICAID ==
[~2018-11-07] VITALS: Ht 175.3 cm; Wt 95.7 kg
[~2018-11-07 10:41] MED LIST changes: +DSS100 PO; +FISH1 PO; -NICO1PAT49 TD; +OMEP20 PO; -QUET300T2 PO; +QUET400T PO; +RISPC50 IM; +SIMV-259 PO
[2018-11-07] MEDS ORDERED: ZOLPIDEM TARTRATE 10 MG TABLET PO PRN (11:15)
[2018-11-07] MEDS ORDERED: LORazepam 2 MG TABLET PO PRN (11:15)
[2018-11-07] MEDS ORDERED: ChlorproMAZINE HCL 100 MG TABLET PO PRN (11:15)
[2018-11-07] MEDS ORDERED: QUET300T2 PO ×2 (11:45)
[2018-11-07 12:50] VITALS: BP 129/89
[2018-11-07] MEDS ORDERED: GuaiFENesin/D-METHORPHAN [SUGAR-FREE] 200-20MG/10 ML SYRUP UDCUP PO PRN (15:30)
[2018-11-07] MEDS ORDERED: MAG HYDROX/AL HYDROX/SIMETH ES 30 ML SUSPENSION UDCUP PO PRN (15:30)
[2018-11-07] MEDS ORDERED: PROMETHAZINE HCL 25 MG TABLET PO PRN (15:30)
[2018-11-07] MEDS ORDERED: ACETAMINOPHEN 325 MG TABLET PO PRN (15:30)
[2018-11-07] MEDS ORDERED: HydrOXYzine PAMOATE 50 MG CAPSULE PO PRN (15:30)
[2018-11-07] MEDS ORDERED: LOPERAMIDE HCL 2 MG CAPSULE PO PRN (15:30)
[2018-11-07] MEDS ORDERED: MAGNESIUM HYDROXIDE SUSPENSION 30 ML UDCUP PO PRN (15:30)
[2018-11-07] MEDS: THIAMINE HCL 100 MG TABLET PO SCH (17:03)
[2018-11-07] MEDS: GABAPENTIN 100 MG CAPSULE PO SCH ×2 (17:03→20:14)
[2018-11-07 18:00] VITALS: BP 133/84
[2018-11-07] MEDS: QUEtiapine FUMARATE 300 MG TABLET PO SCH (20:14)
[2018-11-08 05:23] VITALS: BP 126/78
[2018-11-08 08:25] VITALS: BP 118/74
[2018-11-08] MEDS: BENZTROPINE MESYLATE 1 MG TABLET PO SCH (08:31)
[2018-11-08] MEDS: LOSARTAN POTASSIUM 25 MG TABLET PO SCH (08:31)
[2018-11-08] MEDS: FOLIC ACID 1 MG TABLET PO SCH (08:31)
[2018-11-08] MEDS: THIAMINE HCL 100 MG TABLET PO SCH ×2 (08:31→16:42)
[2018-11-08] MEDS: GABAPENTIN 100 MG CAPSULE PO SCH ×3 (08:31→21:14)
[2018-11-08] MEDS: MULTIVITAMINS WITH MINERALS, THERAPEUTIC TABLET PO SCH (08:31)
[2018-11-08] MEDS: QUEtiapine FUMARATE 300 MG TABLET PO SCH ×2 (08:31→20:19)
[2018-11-08 08:35] LABS: BASOPHILS % (AUTO) 0.3 % (0.0-2.0); HEMATOCRIT 48.3 % (41-53); HEMOGLOBIN 16.4 g/dL (13.5-17.5); LYMPHOCYTES # (AUTO) 2.3 K/uL (1.0-4.8); LYMPHOCYTES % (AUTO) 32.1 % (22.0-44.0); MEAN CORPUSCULAR HEMOGLOBIN 31.7 pg (26.0-34.0); MEAN CORPUSCULAR VOLUME 93 fL (80-100); MONOCYTES # (AUTO) 0.6 K/uL (0.1-1.0); NEUTROPHILS # (AUTO) 4.1 K/uL (1.8-7.7); NEUTROPHILS % (AUTO) 57.6 % (40.0-70.0); PLATELET COUNT (AUTO) 164 K/uL (150-450); RED BLOOD CELL COUNT(AUTO) 5.19 MIL/uL (4.50-5.90); RED CELL DISTRIBUTION WIDTH 13.9 % (11.5-14.5)
[2018-11-08 08:49] LABS: HEMOGLOBIN A1C 5.6 % (4.5-6.2)
[2018-11-08 09:15] LABS: ALANINE AMINOTRANSFERASE 143 U/L (12-78); ALBUMIN 3.4 g/dL (3.4-5.0); ALKALINE PHOSPHATASE 65 U/L (46-116); ANION GAP 10 mmol/L (8-16); ASPARTATE AMINOTRANSFERASE 44 U/L (15-37); BILIRUBIN,TOTAL 0.4 mg/dL (0.1-1.0); CALCIUM, TOTAL 8.8 mg/dL (8.8-10.5); CARBON DIOXIDE 25 mmol/L (22-29); CHLORIDE 104 mmol/L (98-107); CHOL/HDL RATIO 3.3 (4.2-7.3); CHOLESTEROL 160 mg/dL (131-200); CREATININE 0.93 mg/dL (0.60-1.30); FREE T4 (FREE THYROXINE) 0.71 ng/dL (0.76-1.46); GLOMERULAR FILTR. RATE CALC > 60 mL/min (>60); GLUCOSE,RANDOM 106 mg/dL (70-110); HDL CHOLESTEROL 49 mg/dL (40-60); LDL CHOL (CALC.) 94 mg/dL (0-130); POTASSIUM 3.8 mmol/L (3.5-5.1); SODIUM SERUM 139 mmol/L (136-145); THYROID STIMULATING HORMONE 1.47 uIU/mL (0.36-3.74); TOTAL PROTEIN, SERUM 6.8 g/dL (6.4-8.2); TRIGLYCERIDES 84 mg/dL (15-150); UREA NITROGEN, BLOOD 15 mg/dL (7-18)
[2018-11-08 16:09] VITALS: BP 110/64
[2018-11-09 04:27] VITALS: BP 106/62
[2018-11-09] MEDS: BENZTROPINE MESYLATE 1 MG TABLET PO SCH (09:29)
[2018-11-09] MEDS: LOSARTAN POTASSIUM 25 MG TABLET PO SCH (09:29)
[2018-11-09] MEDS: GABAPENTIN 100 MG CAPSULE PO SCH ×3 (09:29→20:27)
[2018-11-09] MEDS: THIAMINE HCL 100 MG TABLET PO SCH ×2 (09:29→16:42)
[2018-11-09] MEDS: QUEtiapine FUMARATE 300 MG TABLET PO SCH ×2 (09:29→20:27)
[2018-11-09] MEDS: FOLIC ACID 1 MG TABLET PO SCH (09:29)
[2018-11-09] MEDS: MULTIVITAMINS WITH MINERALS, THERAPEUTIC TABLET PO SCH (09:29)
[2018-11-09 09:52] VITALS: BP 122/74
[2018-11-09 16:03] VITALS: BP 126/80
[2018-11-10 00:20] VITALS: BP 118/78
[2018-11-10 08:06] VITALS: BP 119/68
[2018-11-10] MEDS: MULTIVITAMINS WITH MINERALS, THERAPEUTIC TABLET PO SCH (08:19)
[2018-11-10] MEDS: FOLIC ACID 1 MG TABLET PO SCH (08:19)
[2018-11-10] MEDS: LOSARTAN POTASSIUM 25 MG TABLET PO SCH (08:19)
[2018-11-10] MEDS: THIAMINE HCL 100 MG TABLET PO SCH ×2 (08:19→16:06)
[2018-11-10] MEDS: BENZTROPINE MESYLATE 1 MG TABLET PO SCH (08:19)
[2018-11-10] MEDS: GABAPENTIN 100 MG CAPSULE PO SCH ×3 (08:19→20:07)
[2018-11-10] MEDS: QUEtiapine FUMARATE 300 MG TABLET PO SCH ×2 (08:19→20:08)
[2018-11-10 16:03] VITALS: BP 108/67
[2018-11-11 04:10] VITALS: BP 110/68
[2018-11-11] MEDS: MULTIVITAMINS WITH MINERALS, THERAPEUTIC TABLET PO SCH (08:01)
[2018-11-11] MEDS: GABAPENTIN 100 MG CAPSULE PO SCH ×3 (08:01→20:32)
[2018-11-11] MEDS: FOLIC ACID 1 MG TABLET PO SCH (08:01)
[2018-11-11] MEDS: QUEtiapine FUMARATE 300 MG TABLET PO SCH ×2 (08:01→20:32)
[2018-11-11] MEDS: THIAMINE HCL 100 MG TABLET PO SCH ×2 (08:01→16:33)
[2018-11-11] MEDS: LOSARTAN POTASSIUM 25 MG TABLET PO SCH (08:01)
[2018-11-11] MEDS: BENZTROPINE MESYLATE 1 MG TABLET PO SCH (08:01)
[2018-11-11 08:13] VITALS: BP 126/87
[2018-11-11 16:08] VITALS: BP 136/76
[2018-11-12 01:59] VITALS: BP 112/73
[2018-11-12 08:11] VITALS: BP 129/72
[2018-11-12] MEDS: QUEtiapine FUMARATE 300 MG TABLET PO SCH (08:21)
[2018-11-12] MEDS: THIAMINE HCL 100 MG TABLET PO SCH (08:21)
[2018-11-12] MEDS: MULTIVITAMINS WITH MINERALS, THERAPEUTIC TABLET PO SCH (08:21)
[2018-11-12] MEDS: BENZTROPINE MESYLATE 1 MG TABLET PO SCH (08:21)
[2018-11-12] MEDS: FOLIC ACID 1 MG TABLET PO SCH (08:21)
[2018-11-12] MEDS: LOSARTAN POTASSIUM 25 MG TABLET PO SCH (08:21)
[2018-11-12] MEDS: GABAPENTIN 100 MG CAPSULE PO SCH (08:21)
[2018-11-12] MEDS ORDERED: NALT50TA PO (11:26)
[2018-11-15] MEDS ORDERED: RisperiDONE MICROSPHERES 50 MG/2 ML SYRINGE IM SCH (09:00)
== END 2018-11-12 10:25 | disposition home or self-care (01) | DRG 885 ==
LOC: B2X 12:00
PROVIDERS: ADMIT Psychiatry & Neurology Psychiatry; ATTEND Psychiatry & Neurology Psychiatry
DX: F25.0 Schizoaffective disorder, bipolar type (principal); R45.851 Suicidal ideations; E78.5 Hyperlipidemia, unspecified; J44.9 Chronic obstructive pulmonary disease, unspecified; F41.9 Anxiety disorder, unspecified; F10.20 Alcohol dependence, uncomplicated
CPT/HCPCS: 80074; 83036; 84439; 84443; 87081

== ENCOUNTER 2019-01-13 15:09 | Inpatient (IN) | payer MEDICARE, MEDICAID ==
[~2019-01-13] VITALS: Ht 175.3 cm; Wt 98.6 kg
[2019-01-13 13:55] VITALS: BP 131/91
[~2019-01-13 15:09] MED LIST changes: +ChlorproMAZINE HCL 100 MG TABLET PO PRN; -DSS100 PO; -FISH1 PO; +LORazepam 2 MG TABLET PO PRN; +NALT50TA PO; -OMEP20 PO; +QUET300T2 PO; -QUET400T PO; -QUET50TA PO; -RISPC50 IM; -SIMV-259 PO; +ZOLPIDEM TARTRATE 5 MG TABLET PO PRN
[2019-01-13 17:09] LABS: BASOPHILS % (AUTO) 0.4 % (0.0-2.0); EOSINOPHILS % (AUTO) 0.7 % (1.0-6.0); HEMATOCRIT 52.1 % (41-53); HEMOGLOBIN 17.7 g/dL (13.5-17.5); LYMPHOCYTES # (AUTO) 2.8 K/uL (1.0-4.8); LYMPHOCYTES % (AUTO) 27.5 % (22.0-44.0); MEAN CORPUSCULAR HEMOGLOBIN 31.5 pg (26.0-34.0); MEAN CORPUSCULAR VOLUME 93 fL (80-100); MONOCYTES # (AUTO) 0.9 K/uL (0.1-1.0); MONOCYTES % (AUTO) 8.7 % (2.0-9.0); NEUTROPHILS # (AUTO) 6.3 K/uL (1.8-7.7); NEUTROPHILS % (AUTO) 62.7 % (40.0-70.0); PLATELET COUNT (AUTO) 164 K/uL (150-450); RED BLOOD CELL COUNT(AUTO) 5.62 MIL/uL (4.50-5.90); RED CELL DISTRIBUTION WIDTH 13.2 % (11.5-14.5)
[2019-01-13 17:14] LABS: ANION GAP 8 mmol/L (8-16); CALCIUM, TOTAL 8.6 mg/dL (8.8-10.5); CARBON DIOXIDE 27 mmol/L (22-29); CHLORIDE 103 mmol/L (98-107); CREATININE 1.05 mg/dL (0.60-1.30); GLOMERULAR FILTR. RATE CALC > 60 mL/min (>60); GLUCOSE,RANDOM 84 mg/dL (70-110); SODIUM SERUM 138 mmol/L (136-145); UREA NITROGEN, BLOOD 14 mg/dL (7-18)
[2019-01-13 17:19] LABS: ALANINE AMINOTRANSFERASE 76 U/L (12-78); ALBUMIN 3.9 g/dL (3.4-5.0); ALKALINE PHOSPHATASE 72 U/L (46-116); ASPARTATE AMINOTRANSFERASE 34 U/L (15-37); BILIRUBIN,TOTAL 0.3 mg/dL (0.1-1.0); TOTAL PROTEIN, SERUM 7.1 g/dL (6.4-8.2)
[2019-01-13] MEDS ORDERED: ZOLPIDEM TARTRATE 5 MG TABLET PO PRN (19:30)
[2019-01-13] MEDS ORDERED: ChlorproMAZINE HCL 100 MG TABLET PO PRN (19:30)
[2019-01-13 19:40] VITALS: BP 133/86
[2019-01-13 20:11] VITALS: BP 133/86
[2019-01-13] MEDS ORDERED: ONDANSETRON HCL 4 MG TABLET PO PRN (20:15)
[2019-01-13] MEDS ORDERED: IBUPROFEN 600 MG TABLET PO PRN (20:15)
[2019-01-13] MEDS ORDERED: ACETAMINOPHEN 325 MG TABLET PO PRN (20:15)
[2019-01-13] MEDS ORDERED: BACITRACIN 28.4 GM OINTMENT TP PRN (20:15)
[2019-01-13] MEDS ORDERED: CloNIDine HCL 0.1 MG TABLET PO PRN (20:15)
[2019-01-13] MEDS ORDERED: ALBUTEROL SULFATE HFA 90 MCG/PUFF 8 GM INHALER IH PRN (20:15)
[2019-01-13] MEDS: QUEtiapine FUMARATE 300 MG TABLET PO SCH (20:15)
[2019-01-13] MEDS ORDERED: MAG HYDROX/AL HYDROX/SIMETH ES 30 ML SUSPENSION UDCUP PO PRN (20:15)
[2019-01-13] MEDS ORDERED: LOPERAMIDE HCL 2 MG CAPSULE PO PRN (20:15)
[2019-01-13] MEDS: GABAPENTIN 100 MG CAPSULE PO SCH (20:15)
[2019-01-13] MEDS ORDERED: MAGNESIUM HYDROXIDE SUSPENSION 30 ML UDCUP PO PRN (20:15)
[2019-01-13] MEDS ORDERED: BENZOCAINE/MENTHOL LOZENGE MM PRN (20:15)
[2019-01-13] MEDS ORDERED: PETROLATUM,WHITE 28 GM JELLY TP PRN (20:15)
[2019-01-13 20:40] VITALS: BP 114/69
[2019-01-13 21:41] VITALS: BP 106/86
[2019-01-13 22:40] VITALS: BP 120/82
[2019-01-14] VITALS (11 sets, daily range): BP systolic 104–134; BP diastolic 65–83
[2019-01-14] MEDS: LORazepam 2 MG TABLET PO PRN (01:58)
[2019-01-14 08:25] LABS: BASOPHILS % (AUTO) 0.4 % (0.0-2.0); EOSINOPHILS % (AUTO) 1.7 % (1.0-6.0); HEMATOCRIT 50.6 % (41-53); HEMOGLOBIN 17.1 g/dL (13.5-17.5); LYMPHOCYTES # (AUTO) 2.9 K/uL (1.0-4.8); LYMPHOCYTES % (AUTO) 40.1 % (22.0-44.0); MEAN CORPUSCULAR HEMOGLOBIN 31.2 pg (26.0-34.0); MEAN CORPUSCULAR HGB CONC 33.9 G/dL (31.0-37.0); MEAN CORPUSCULAR VOLUME 92 fL (80-100); MONOCYTES % (AUTO) 13.5 % (2.0-9.0); NEUTROPHILS # (AUTO) 3.2 K/uL (1.8-7.7); NEUTROPHILS % (AUTO) 44.3 % (40.0-70.0); PLATELET COUNT (AUTO) 166 K/uL (150-450); RED CELL DISTRIBUTION WIDTH 13.2 % (11.5-14.5)
[2019-01-14] MEDS: GABAPENTIN 100 MG CAPSULE PO SCH ×3 (08:43→20:02)
[2019-01-14] MEDS: DOCUSATE SODIUM 100 MG CAPSULE PO SCH (08:43)
[2019-01-14] MEDS: QUEtiapine FUMARATE 300 MG TABLET PO SCH ×2 (08:43→20:02)
[2019-01-14] MEDS: OMEPRAZOLE 20 MG CAPSULE PO SCH (08:43)
[2019-01-14] MEDS: BENZTROPINE MESYLATE 1 MG TABLET PO SCH (08:43)
[2019-01-14 08:45] LABS: HEMOGLOBIN A1C 5.1 % (4.5-6.2)
[2019-01-14 08:54] LABS: ALANINE AMINOTRANSFERASE 68 U/L (12-78); ALBUMIN 3.6 g/dL (3.4-5.0); ALKALINE PHOSPHATASE 67 U/L (46-116); ANION GAP 9 mmol/L (8-16); ASPARTATE AMINOTRANSFERASE 29 U/L (15-37); BILIRUBIN,TOTAL 0.5 mg/dL (0.1-1.0); CALCIUM, TOTAL 8.4 mg/dL (8.8-10.5); CARBON DIOXIDE 27 mmol/L (22-29); CHLORIDE 104 mmol/L (98-107); CHOL/HDL RATIO 4.8 (4.2-7.3); CHOLESTEROL 191 mg/dL (131-200); CREATININE 0.96 mg/dL (0.60-1.30); GLOMERULAR FILTR. RATE CALC > 60 mL/min (>60); GLUCOSE,RANDOM 110 mg/dL (70-110); HDL CHOLESTEROL 40 mg/dL (40-60); LDL CHOL (CALC.) 122 mg/dL (0-130); POTASSIUM 3.9 mmol/L (3.5-5.1); SODIUM SERUM 140 mmol/L (136-145); THYROID STIMULATING HORMONE 2.01 uIU/mL (0.36-3.74); TOTAL PROTEIN, SERUM 6.3 g/dL (6.4-8.2); TRIGLYCERIDES 146 mg/dL (15-150); UREA NITROGEN, BLOOD 13 mg/dL (7-18)
[2019-01-14] MEDS ORDERED: HydrOXYzine PAMOATE 50 MG CAPSULE PO PRN (11:30)
[2019-01-14] MEDS ORDERED: GuaiFENesin/D-METHORPHAN [SUGAR-FREE] 200-20MG/10 ML SYRUP UDCUP PO PRN (11:30)
[2019-01-14] MEDS: THIAMINE HCL 100 MG TABLET PO SCH (16:41)
[2019-01-15 00:10] VITALS: BP 118/79
[2019-01-15] MEDS: LORazepam 2 MG TABLET PO PRN (00:14)
[2019-01-15 00:33] VITALS: BP 118/81
[2019-01-15 08:17] VITALS: BP 133/87
[2019-01-15] MEDS: MULTIVITAMINS WITH MINERALS, THERAPEUTIC TABLET PO SCH (08:19)
[2019-01-15] MEDS: QUEtiapine FUMARATE 300 MG TABLET PO SCH ×2 (08:19→20:45)
[2019-01-15] MEDS: BENZTROPINE MESYLATE 1 MG TABLET PO SCH (08:19)
[2019-01-15] MEDS: GABAPENTIN 100 MG CAPSULE PO SCH ×3 (08:19→20:45)
[2019-01-15] MEDS: FOLIC ACID 1 MG TABLET PO SCH (08:19)
[2019-01-15] MEDS: DOCUSATE SODIUM 100 MG CAPSULE PO SCH (08:19)
[2019-01-15] MEDS: THIAMINE HCL 100 MG TABLET PO SCH ×2 (08:19→16:32)
[2019-01-15] MEDS: OMEPRAZOLE 20 MG CAPSULE PO SCH (08:19)
[2019-01-15 08:42] VITALS: BP 133/87
[2019-01-15] MEDS ORDERED: QUET300T18 PO ×2 (16:13)
[2019-01-15] MEDS ORDERED: GABA-529 PO (16:13)
[2019-01-15 16:41] VITALS: BP 135/80
[2019-01-15 17:32] VITALS: BP 135/80
[2019-01-15] MEDS ORDERED: QUET200T PO (23:17)
[2019-01-16 00:10] VITALS: BP 129/69
[2019-01-16 08:15] VITALS: BP 129/84
[2019-01-16] MEDS: DOCUSATE SODIUM 100 MG CAPSULE PO SCH (08:15)
[2019-01-16] MEDS: OMEPRAZOLE 20 MG CAPSULE PO SCH (08:15)
[2019-01-16] MEDS: FOLIC ACID 1 MG TABLET PO SCH (08:15)
[2019-01-16] MEDS ORDERED: DSS100 PO (08:17)
[2019-01-16] MEDS: MULTIVITAMINS WITH MINERALS, THERAPEUTIC TABLET PO SCH (08:18)
[2019-01-16] MEDS: THIAMINE HCL 100 MG TABLET PO SCH (08:18)
[2019-01-16] MEDS: GABAPENTIN 100 MG CAPSULE PO SCH (08:18)
[2019-01-16] MEDS ORDERED: OMEP20 PO (08:19)
[2019-01-16] MEDS ORDERED: QUEtiapine FUMARATE 200 MG TABLET PO SCH (09:00)
[2019-01-27] MEDS ORDERED: RisperiDONE MICROSPHERES 50 MG/2 ML SYRINGE IM SCH (09:00)
== END 2019-01-16 10:20 | disposition home or self-care (01) | DRG 885 ==
LOC: BV PSY EVL 15:09 → B2X 18:00
PROVIDERS: ADMIT Psychiatry & Neurology Psychiatry; ATTEND Psychiatry & Neurology Psychiatry
DX: F25.0 Schizoaffective disorder, bipolar type (principal); B19.20 Unspecified viral hepatitis C without hepatic coma; F10.229 Alcohol dependence with intoxication, unspecified; R45.851 Suicidal ideations; G47.00 Insomnia, unspecified; I10 Essential (primary) hypertension; J44.9 Chronic obstructive pulmonary disease, unspecified; Y90.2 Blood alcohol level of 40-59 mg/100 ml; E78.5 Hyperlipidemia, unspecified; E78.00 Pure hypercholesterolemia, unspecified; Z91.19 Patient's noncompliance with other medical treatment and regimen; Z88.8 Allergy status to other drugs, medicaments and biological substances
CPT/HCPCS: 83036; 84439; 84443; G0480

== ENCOUNTER 2019-03-09 11:01 | Inpatient (IN) | payer MEDICARE, MEDICAID ==
[~2019-03-09] VITALS: Ht 175.3 cm; Wt 97.2 kg
[~2019-03-09 11:01] MED LIST changes: -BENZ1TAB10 PO; -ChlorproMAZINE HCL 100 MG TABLET PO PRN; +FOLI1 PO; -GABA-529 PO; +GABA-531 PO; -LORazepam 2 MG TABLET PO PRN; -LOSA25TA41 PO; +MIRT15 PO; +NALT50TA6 PO; +PRAZ1 PO; +QUET200T PO; +QUET200T29 PO; +QUET300T18 PO; -ZOLPIDEM TARTRATE 5 MG TABLET PO PRN
[2019-03-09] MEDS ORDERED: ACETAMINOPHEN 325 MG TABLET PO PRN (13:15)
[2019-03-09] MEDS ORDERED: MAGNESIUM HYDROXIDE SUSPENSION 30 ML UDCUP PO PRN ×2 (13:15→22:00)
[2019-03-09] MEDS ORDERED: LOPERAMIDE HCL 2 MG CAPSULE PO PRN (13:15)
[2019-03-09] MEDS ORDERED: MAG HYDROX/AL HYDROX/SIMETH ES 30 ML SUSPENSION UDCUP PO PRN ×2 (13:15→22:00)
[2019-03-09] MEDS ORDERED: PROMETHAZINE HCL 25 MG TABLET PO PRN (13:15)
[2019-03-09] MEDS ORDERED: GuaiFENesin/D-METHORPHAN [SUGAR-FREE] 200-20MG/10 ML SYRUP UDCUP PO PRN (13:15)
[2019-03-09] MEDS ORDERED: CYANOCOBALAMIN 1,000 MCG/ML VIAL IM ONE (13:15)
[2019-03-09] MEDS ORDERED: DIAZEPAM 10 MG TABLET PO PRN (13:15)
[2019-03-09 13:55] VITALS: BP 138/93
[2019-03-09 14:34] VITALS: BP 133/95
[2019-03-09 16:00] VITALS: BP 140/74
[2019-03-09] MEDS ORDERED: PALIPERIDONE PALMITATE 117 MG/0.75 ML SYRINGE IM ONE (16:30)
[2019-03-09] MEDS: BENZTROPINE MESYLATE 1 MG TABLET PO SCH (17:21)
[2019-03-09] MEDS: GABAPENTIN 300 MG CAPSULE PO SCH ×2 (17:21→21:07)
[2019-03-09] MEDS: QUEtiapine FUMARATE 100 MG TABLET PO PRN (17:22)
[2019-03-09] MEDS: THIAMINE HCL 100 MG TABLET PO SCH (17:23)
[2019-03-09] MEDS: QUEtiapine FUMARATE 300 MG TABLET PO SCH (21:07)
[2019-03-09] MEDS: MIRTAZAPINE 15 MG TABLET PO SCH (21:07)
[2019-03-09] MEDS: ZOLPIDEM TARTRATE 10 MG TABLET PO PRN (21:07)
[2019-03-09] MEDS: PRAZOSIN HCL 1 MG CAPSULE PO SCH (21:09)
[2019-03-09] MEDS ORDERED: BACITRACIN 28.4 GM OINTMENT TP PRN (22:00)
[2019-03-09] MEDS ORDERED: ALBUTEROL SULFATE 2.5 MG/0.5 ML NEB SOLUTION NEB PRN (22:00)
[2019-03-09] MEDS ORDERED: CloNIDine HCL 0.1 MG TABLET PO PRN (22:00)
[2019-03-09] MEDS ORDERED: ALBUTEROL SULFATE HFA 90 MCG/PUFF 8 GM INHALER IH PRN (22:00)
[2019-03-09] MEDS ORDERED: ONDANSETRON HCL 4 MG TABLET PO PRN (22:00)
[2019-03-09] MEDS ORDERED: PETROLATUM,WHITE 28 GM JELLY TP PRN (22:00)
[2019-03-09] MEDS ORDERED: IBUPROFEN 600 MG TABLET PO PRN (22:00)
[2019-03-09] MEDS ORDERED: BENZOCAINE/MENTHOL LOZENGE MM PRN (22:00)
[2019-03-10 01:00] VITALS: BP_SYST 132; BP_SYST 135; BP_DIAS 82
[2019-03-10 05:00] VITALS: BP 121/84
[2019-03-10] MEDS ORDERED: DIAZEPAM 10 MG TABLET PO PRN (07:00)
[2019-03-10 07:32] LABS: BASOPHILS % (AUTO) 0.3 % (0.0-2.0); EOSINOPHILS % (AUTO) 0.9 % (1.0-6.0); HEMATOCRIT 52.2 % (41-53); HEMOGLOBIN 17.4 g/dL (13.5-17.5); LYMPHOCYTES # (AUTO) 2.6 K/uL (1.0-4.8); LYMPHOCYTES % (AUTO) 28.8 % (22.0-44.0); MEAN CORPUSCULAR HEMOGLOBIN 31.6 pg (26.0-34.0); MEAN CORPUSCULAR HGB CONC 33.3 G/dL (31.0-37.0); MEAN CORPUSCULAR VOLUME 95 fL (80-100); MONOCYTES # (AUTO) 1.2 K/uL (0.1-1.0); MONOCYTES % (AUTO) 13.8 % (2.0-9.0); NEUTROPHILS % (AUTO) 56.2 % (40.0-70.0); PLATELET COUNT (AUTO) 145 K/uL (150-450); RED CELL DISTRIBUTION WIDTH 13.7 % (11.5-14.5)
[2019-03-10 08:01] VITALS: BP 110/67
[2019-03-10] MEDS: GABAPENTIN 300 MG CAPSULE PO SCH ×4 (09:58→20:07)
[2019-03-10] MEDS: DIAZEPAM 10 MG TABLET PO SCH ×4 (09:58→20:33)
[2019-03-10] MEDS: QUEtiapine FUMARATE 200 MG TABLET PO SCH (09:58)
[2019-03-10] MEDS: OMEPRAZOLE 20 MG CAPSULE PO SCH (09:58)
[2019-03-10] MEDS: MULTIVITAMINS WITH MINERALS, THERAPEUTIC TABLET PO SCH (09:58)
[2019-03-10] MEDS: BENZTROPINE MESYLATE 1 MG TABLET PO SCH ×2 (09:58→16:28)
[2019-03-10] MEDS: FOLIC ACID 1 MG TABLET PO SCH (09:58)
[2019-03-10] MEDS: DOCUSATE SODIUM 100 MG CAPSULE PO SCH (09:59)
[2019-03-10] MEDS: NALTREXONE HCL 50 MG TABLET PO SCH (09:59)
[2019-03-10] MEDS: THIAMINE HCL 100 MG TABLET PO SCH ×2 (09:59→16:28)
[2019-03-10 16:01] VITALS: BP 109/65
[2019-03-10 16:02] VITALS: BP 109/65
[2019-03-10] MEDS: HydrOXYzine PAMOATE 50 MG CAPSULE PO PRN (16:29)
[2019-03-10] MEDS: QUEtiapine FUMARATE 100 MG TABLET PO PRN (16:29)
[2019-03-10] MEDS: QUEtiapine FUMARATE 300 MG TABLET PO SCH (20:07)
[2019-03-10] MEDS: MIRTAZAPINE 15 MG TABLET PO SCH (20:07)
[2019-03-10] MEDS: PRAZOSIN HCL 1 MG CAPSULE PO SCH (20:07)
[2019-03-10] MEDS: ZOLPIDEM TARTRATE 10 MG TABLET PO PRN (20:08)
[2019-03-11 06:06] VITALS: BP 127/81
[2019-03-11 06:08] VITALS: BP 127/81
[2019-03-11 08:01] VITALS: BP 134/81
[2019-03-11] MEDS: BENZTROPINE MESYLATE 1 MG TABLET PO SCH ×2 (08:39→16:23)
[2019-03-11] MEDS: THIAMINE HCL 100 MG TABLET PO SCH ×2 (08:39→16:23)
[2019-03-11] MEDS: NALTREXONE HCL 50 MG TABLET PO SCH (08:39)
[2019-03-11] MEDS: FOLIC ACID 1 MG TABLET PO SCH (08:39)
[2019-03-11] MEDS: MULTIVITAMINS WITH MINERALS, THERAPEUTIC TABLET PO SCH (08:39)
[2019-03-11] MEDS: DIAZEPAM 10 MG TABLET PO SCH ×4 (08:39→20:51)
[2019-03-11] MEDS: GABAPENTIN 300 MG CAPSULE PO SCH ×4 (08:39→20:52)
[2019-03-11] MEDS: QUEtiapine FUMARATE 200 MG TABLET PO SCH (08:39)
[2019-03-11] MEDS: DOCUSATE SODIUM 100 MG CAPSULE PO SCH (08:39)
[2019-03-11] MEDS: OMEPRAZOLE 20 MG CAPSULE PO SCH (08:39)
[2019-03-11 16:00] VITALS: BP 136/89
[2019-03-11] MEDS: ACAMPROSATE CALCIUM 333 MG DR TABLET PO SCH (17:10)
[2019-03-11] MEDS: NICOTINE 21 MG/24 HOUR PATCH TD SCH (17:10)
[2019-03-11] MEDS: TOPIRAMATE 25 MG TABLET PO SCH (17:10)
[2019-03-11] MEDS: QUEtiapine FUMARATE 300 MG TABLET PO SCH (20:47)
[2019-03-11] MEDS: PRAZOSIN HCL 1 MG CAPSULE PO SCH (20:50)
[2019-03-11] MEDS: MIRTAZAPINE 15 MG TABLET PO SCH (20:51)
[2019-03-11] MEDS: ZOLPIDEM TARTRATE 10 MG TABLET PO PRN (20:51)
[2019-03-12 02:14] VITALS: BP 128/70
[2019-03-12 02:28] VITALS: BP 132/80
[2019-03-12] MEDS ORDERED: DIAZEPAM 5 MG TABLET PO PRN (07:00)
[2019-03-12 08:00] VITALS: BP 148/93
[2019-03-12 08:29] VITALS: BP 148/93
[2019-03-12] MEDS: TOPIRAMATE 25 MG TABLET PO SCH ×3 (08:31→16:17)
[2019-03-12] MEDS: MULTIVITAMINS WITH MINERALS, THERAPEUTIC TABLET PO SCH (08:31)
[2019-03-12] MEDS: DIAZEPAM 5 MG TABLET PO SCH ×4 (08:31→20:44)
[2019-03-12] MEDS: QUEtiapine FUMARATE 200 MG TABLET PO SCH (08:31)
[2019-03-12] MEDS: THIAMINE HCL 100 MG TABLET PO SCH ×2 (08:31→16:17)
[2019-03-12] MEDS: ACAMPROSATE CALCIUM 333 MG DR TABLET PO SCH ×3 (08:31→16:17)
[2019-03-12] MEDS: OMEPRAZOLE 20 MG CAPSULE PO SCH (08:31)
[2019-03-12] MEDS: BENZTROPINE MESYLATE 1 MG TABLET PO SCH ×2 (08:31→16:17)
[2019-03-12] MEDS: NALTREXONE HCL 50 MG TABLET PO SCH (08:31)
[2019-03-12] MEDS: GABAPENTIN 300 MG CAPSULE PO SCH ×4 (08:32→20:44)
[2019-03-12] MEDS: FOLIC ACID 1 MG TABLET PO SCH (08:32)
[2019-03-12] MEDS: NICOTINE 21 MG/24 HOUR PATCH TD SCH (08:32)
[2019-03-12] MEDS: DOCUSATE SODIUM 100 MG CAPSULE PO SCH (08:32)
[2019-03-12] MEDS ORDERED: LOPERAMIDE HCL 2 MG CAPSULE PO PRN (13:15)
[2019-03-12 16:00] VITALS: BP 140/90
[2019-03-12 16:04] VITALS: BP 140/90
[2019-03-12] MEDS: HydrOXYzine PAMOATE 50 MG CAPSULE PO PRN (16:17)
[2019-03-12] MEDS: QUEtiapine FUMARATE 100 MG TABLET PO PRN (18:17)
[2019-03-12] MEDS: ZOLPIDEM TARTRATE 10 MG TABLET PO PRN (20:44)
[2019-03-12] MEDS: QUEtiapine FUMARATE 300 MG TABLET PO SCH (20:44)
[2019-03-12] MEDS: PRAZOSIN HCL 1 MG CAPSULE PO SCH (20:44)
[2019-03-12] MEDS: MIRTAZAPINE 15 MG TABLET PO SCH (20:44)
[2019-03-13 04:35] VITALS: BP 132/86
[2019-03-13 04:37] VITALS: BP 132/86
[2019-03-13] MEDS ORDERED: DIAZEPAM 5 MG TABLET PO PRN (07:00)
[2019-03-13 08:15] VITALS: BP 117/71
[2019-03-13] MEDS: FOLIC ACID 1 MG TABLET PO SCH (08:23)
[2019-03-13] MEDS: NALTREXONE HCL 50 MG TABLET PO SCH (08:23)
[2019-03-13] MEDS: GABAPENTIN 300 MG CAPSULE PO SCH ×4 (08:23→20:44)
[2019-03-13] MEDS: TOPIRAMATE 25 MG TABLET PO SCH ×3 (08:23→16:49)
[2019-03-13] MEDS: MULTIVITAMINS WITH MINERALS, THERAPEUTIC TABLET PO SCH (08:23)
[2019-03-13] MEDS: ACAMPROSATE CALCIUM 333 MG DR TABLET PO SCH ×3 (08:23→16:49)
[2019-03-13] MEDS: THIAMINE HCL 100 MG TABLET PO SCH ×2 (08:23→16:49)
[2019-03-13] MEDS: BENZTROPINE MESYLATE 1 MG TABLET PO SCH ×2 (08:23→16:49)
[2019-03-13] MEDS: DOCUSATE SODIUM 100 MG CAPSULE PO SCH (08:23)
[2019-03-13] MEDS: QUEtiapine FUMARATE 200 MG TABLET PO SCH (08:23)
[2019-03-13] MEDS: OMEPRAZOLE 20 MG CAPSULE PO SCH (08:23)
[2019-03-13] MEDS: NICOTINE 21 MG/24 HOUR PATCH TD SCH (08:24)
[2019-03-13] MEDS: LOPERAMIDE HCL 2 MG CAPSULE PO PRN (11:22)
[2019-03-13] MEDS ORDERED: LACTOBACILLUS ACIDOPHILUS/BULGARICUS GRANULES PACKET PO SCH ×3 (13:00→17:00)
[2019-03-13 16:00] VITALS: BP 127/73
[2019-03-13 16:10] VITALS: BP 127/73
[2019-03-13] MEDS: LACTOBACILLUS ACIDOPHILUS/BULGARICUS GRANULES PACKET PO SCH (16:49)
[2019-03-13] MEDS: MIRTAZAPINE 15 MG TABLET PO SCH (20:44)
[2019-03-13] MEDS: QUEtiapine FUMARATE 300 MG TABLET PO SCH (20:44)
[2019-03-13] MEDS: PRAZOSIN HCL 1 MG CAPSULE PO SCH (20:44)
[2019-03-14 08:07] VITALS: BP 112/77
[2019-03-14] MEDS: NICOTINE 21 MG/24 HOUR PATCH TD SCH (09:20)
[2019-03-14] MEDS: ACAMPROSATE CALCIUM 333 MG DR TABLET PO SCH ×3 (09:20→16:29)
[2019-03-14] MEDS: QUEtiapine FUMARATE 200 MG TABLET PO SCH (09:20)
[2019-03-14] MEDS: LOPERAMIDE HCL 2 MG CAPSULE PO PRN ×2 (09:20→18:58)
[2019-03-14] MEDS: OMEPRAZOLE 20 MG CAPSULE PO SCH (09:21)
[2019-03-14] MEDS: GABAPENTIN 300 MG CAPSULE PO SCH ×4 (09:21→20:19)
[2019-03-14] MEDS: MULTIVITAMINS WITH MINERALS, THERAPEUTIC TABLET PO SCH (09:21)
[2019-03-14] MEDS: BENZTROPINE MESYLATE 1 MG TABLET PO SCH ×2 (09:21→16:29)
[2019-03-14] MEDS: DOCUSATE SODIUM 100 MG CAPSULE PO SCH (09:21)
[2019-03-14] MEDS: THIAMINE HCL 100 MG TABLET PO SCH ×2 (09:21→16:29)
[2019-03-14] MEDS: LACTOBACILLUS ACIDOPHILUS/BULGARICUS GRANULES PACKET PO SCH ×3 (09:21→16:29)
[2019-03-14] MEDS: FOLIC ACID 1 MG TABLET PO SCH (09:21)
[2019-03-14] MEDS: NALTREXONE HCL 50 MG TABLET PO SCH (09:21)
[2019-03-14] MEDS: TOPIRAMATE 25 MG TABLET PO SCH ×3 (09:22→16:29)
[2019-03-14 16:13] VITALS: BP 116/67
[2019-03-14] MEDS: QUEtiapine FUMARATE 100 MG TABLET PO PRN (16:29)
[2019-03-14] MEDS: ZOLPIDEM TARTRATE 10 MG TABLET PO PRN (20:19)
[2019-03-14] MEDS: MIRTAZAPINE 15 MG TABLET PO SCH (20:19)
[2019-03-14] MEDS: QUEtiapine FUMARATE 300 MG TABLET PO SCH (20:19)
[2019-03-14] MEDS: PRAZOSIN HCL 1 MG CAPSULE PO SCH (20:19)
[2019-03-15 02:01] VITALS: BP 116/83
[2019-03-15] MEDS: LOPERAMIDE HCL 2 MG CAPSULE PO PRN ×4 (02:10→14:37)
[2019-03-15 08:12] VITALS: BP 132/87
[2019-03-15] MEDS: THIAMINE HCL 100 MG TABLET PO SCH ×2 (08:23→16:37)
[2019-03-15] MEDS: NICOTINE 21 MG/24 HOUR PATCH TD SCH (08:23)
[2019-03-15] MEDS: MULTIVITAMINS WITH MINERALS, THERAPEUTIC TABLET PO SCH (08:24)
[2019-03-15] MEDS: TOPIRAMATE 25 MG TABLET PO SCH ×3 (08:24→16:37)
[2019-03-15] MEDS: BENZTROPINE MESYLATE 1 MG TABLET PO SCH ×2 (08:24→16:37)
[2019-03-15] MEDS: GABAPENTIN 300 MG CAPSULE PO SCH ×4 (08:24→20:13)
[2019-03-15] MEDS: QUEtiapine FUMARATE 200 MG TABLET PO SCH (08:24)
[2019-03-15] MEDS: NALTREXONE HCL 50 MG TABLET PO SCH (08:24)
[2019-03-15] MEDS: FOLIC ACID 1 MG TABLET PO SCH (08:25)
[2019-03-15] MEDS: OMEPRAZOLE 20 MG CAPSULE PO SCH (08:25)
[2019-03-15] MEDS: DOCUSATE SODIUM 100 MG CAPSULE PO SCH (08:26)
[2019-03-15] MEDS: LACTOBACILLUS ACIDOPHILUS/BULGARICUS GRANULES PACKET PO SCH ×3 (08:26→16:36)
[2019-03-15 08:31] LABS: AMPHET/METH SCREEN,URINE NEGATIVE (NEGATIVE); BARBITURATE SCREEN, URINE NEGATIVE (NEGATIVE); BENZODIAZEPINES SCREEN,URINE POSITIVE (NEGATIVE); CANNABINOID SCREEN,URINE NEGATIVE (NEGATIVE); COCAINE SCREEN,URINE NEGATIVE (NEGATIVE); METHADONE SCREEN, URINE NEGATIVE (NEGATIVE); OPIATE SCREEN,URINE NEGATIVE (NEGATIVE)
[2019-03-15 08:32] LABS: PHENCYCLIDINE SCREEN,URINE NEGATIVE (NEGATIVE)
[2019-03-15] MEDS ORDERED: DICYCLOMINE HCL 10 MG CAPSULE PO ONE (10:00)
[2019-03-15 16:01] VITALS: BP 122/70
[2019-03-15] MEDS: QUEtiapine FUMARATE 100 MG TABLET PO PRN (16:37)
[2019-03-15] MEDS: QUEtiapine FUMARATE 300 MG TABLET PO SCH (20:13)
[2019-03-15] MEDS: MIRTAZAPINE 15 MG TABLET PO SCH (20:13)
[2019-03-15] MEDS: ZOLPIDEM TARTRATE 10 MG TABLET PO PRN (20:14)
[2019-03-15] MEDS: PRAZOSIN HCL 1 MG CAPSULE PO SCH (20:14)
[2019-03-16 02:15] VITALS: BP 133/88
[2019-03-16 07:26] LABS: BAND NEUTROPHILS % (MANUAL) 0 % (0-5)
[2019-03-16 07:28] LABS: HEMATOCRIT 53.8 % (41-53); HEMOGLOBIN 18.2 g/dL (13.5-17.5); MEAN CORPUSCULAR HEMOGLOBIN 31.9 pg (26.0-34.0); MEAN CORPUSCULAR HGB CONC 33.9 G/dL (31.0-37.0); MEAN CORPUSCULAR VOLUME 94 fL (80-100); PLATELET COUNT (AUTO) 167 K/uL (150-450); RED BLOOD CELL COUNT(AUTO) 5.71 MIL/uL (4.50-5.90)
[2019-03-16 07:47] LABS: ANION GAP 11 mmol/L (8-16); CALCIUM, TOTAL 8.6 mg/dL (8.8-10.5); CARBON DIOXIDE 22 mmol/L (22-29); CHLORIDE 106 mmol/L (98-107); CREATININE 0.99 mg/dL (0.60-1.30); GLOMERULAR FILTR. RATE CALC > 60 mL/min (>60); GLUCOSE,RANDOM 115 mg/dL (70-110); PHOSPHORUS 3.5 mg/dL (2.5-4.9); POTASSIUM 3.7 mmol/L (3.5-5.1); SODIUM SERUM 139 mmol/L (136-145); UREA NITROGEN, BLOOD 15 mg/dL (7-18)
[2019-03-16 08:11] VITALS: BP 124/73
[2019-03-16] MEDS: TOPIRAMATE 25 MG TABLET PO SCH ×2 (08:28→12:33)
[2019-03-16] MEDS: GABAPENTIN 300 MG CAPSULE PO SCH ×4 (08:28→20:53)
[2019-03-16] MEDS: MULTIVITAMINS WITH MINERALS, THERAPEUTIC TABLET PO SCH (08:28)
[2019-03-16] MEDS: THIAMINE HCL 100 MG TABLET PO SCH ×2 (08:28→17:04)
[2019-03-16] MEDS: NICOTINE 21 MG/24 HOUR PATCH TD SCH (08:28)
[2019-03-16] MEDS: BENZTROPINE MESYLATE 1 MG TABLET PO SCH ×2 (08:28→17:04)
[2019-03-16] MEDS: OMEPRAZOLE 20 MG CAPSULE PO SCH (08:28)
[2019-03-16] MEDS: NALTREXONE HCL 50 MG TABLET PO SCH (08:29)
[2019-03-16] MEDS: FOLIC ACID 1 MG TABLET PO SCH (08:29)
[2019-03-16] MEDS: LACTOBACILLUS ACIDOPHILUS/BULGARICUS GRANULES PACKET PO SCH ×3 (08:30→17:04)
[2019-03-16] MEDS: QUEtiapine FUMARATE 200 MG TABLET PO SCH (08:32)
[2019-03-16 09:42] LABS: EOSINOPHILS % (MANUAL) 1 % (1-6); LYMPHOCYTES % (MANUAL) 26 % (22-44); MONOCYTES % (MANUAL) 7 % (2-9); SEGMENTED NEUTROPHILS % 66 % (40-70)
[2019-03-16] MEDS: LOPERAMIDE HCL 2 MG CAPSULE PO PRN (11:09)
[2019-03-16] MEDS ORDERED: AZITHROMYCIN 250 MG TABLET PO ONE (13:30)
[2019-03-16 14:04] VITALS: BP 119/52
[2019-03-16 16:00] VITALS: BP 106/64
[2019-03-16] MEDS: MIRTAZAPINE 15 MG TABLET PO SCH (20:53)
[2019-03-16] MEDS: PRAZOSIN HCL 1 MG CAPSULE PO SCH (20:53)
[2019-03-16] MEDS: ZOLPIDEM TARTRATE 10 MG TABLET PO PRN (20:53)
[2019-03-16] MEDS: QUEtiapine FUMARATE 300 MG TABLET PO SCH (20:53)
[2019-03-17 06:08] VITALS: BP 108/68
[2019-03-17 08:00] VITALS: BP 105/63
[2019-03-17 08:30] LABS: BASOPHILS % (AUTO) 0.4 % (0.0-2.0); EOSINOPHILS % (AUTO) 2.1 % (1.0-6.0); HEMATOCRIT 53.6 % (41-53); HEMOGLOBIN 17.9 g/dL (13.5-17.5); LYMPHOCYTES # (AUTO) 2.5 K/uL (1.0-4.8); LYMPHOCYTES % (AUTO) 23.1 % (22.0-44.0); MEAN CORPUSCULAR HEMOGLOBIN 31.6 pg (26.0-34.0); MEAN CORPUSCULAR HGB CONC 33.3 G/dL (31.0-37.0); MEAN CORPUSCULAR VOLUME 95 fL (80-100); MONOCYTES # (AUTO) 1.4 K/uL (0.1-1.0); NEUTROPHILS # (AUTO) 6.6 K/uL (1.8-7.7); NEUTROPHILS % (AUTO) 61.4 % (40.0-70.0); PLATELET COUNT (AUTO) 184 K/uL (150-450); RED BLOOD CELL COUNT(AUTO) 5.65 MIL/uL (4.50-5.90); RED CELL DISTRIBUTION WIDTH 13.9 % (11.5-14.5)
[2019-03-17] MEDS: BENZTROPINE MESYLATE 1 MG TABLET PO SCH ×2 (08:32→16:48)
[2019-03-17] MEDS: QUEtiapine FUMARATE 200 MG TABLET PO SCH (08:32)
[2019-03-17] MEDS: FOLIC ACID 1 MG TABLET PO SCH (08:32)
[2019-03-17] MEDS: AZITHROMYCIN 250 MG TABLET PO SCH (08:32)
[2019-03-17] MEDS: GABAPENTIN 300 MG CAPSULE PO SCH ×4 (08:32→20:44)
[2019-03-17] MEDS: MULTIVITAMINS WITH MINERALS, THERAPEUTIC TABLET PO SCH (08:33)
[2019-03-17] MEDS: LACTOBACILLUS ACIDOPHILUS/BULGARICUS GRANULES PACKET PO SCH ×3 (08:33→16:48)
[2019-03-17] MEDS: THIAMINE HCL 100 MG TABLET PO SCH ×2 (08:37→16:48)
[2019-03-17] MEDS: NALTREXONE HCL 50 MG TABLET PO SCH (08:37)
[2019-03-17 08:48] LABS: ALANINE AMINOTRANSFERASE 97 U/L (12-78); ALKALINE PHOSPHATASE 74 U/L (46-116); ANION GAP 12 mmol/L (8-16); ASPARTATE AMINOTRANSFERASE 36 U/L (15-37); BILIRUBIN,TOTAL 0.4 mg/dL (0.1-1.0); CALCIUM, TOTAL 8.6 mg/dL (8.8-10.5); CARBON DIOXIDE 24 mmol/L (22-29); CHLORIDE 105 mmol/L (98-107); CREATININE 1.04 mg/dL (0.60-1.30); GLOMERULAR FILTR. RATE CALC > 60 mL/min (>60); GLUCOSE,RANDOM 102 mg/dL (70-110); POTASSIUM 3.7 mmol/L (3.5-5.1); SODIUM SERUM 141 mmol/L (136-145); TOTAL PROTEIN, SERUM 6.4 g/dL (6.4-8.2); UREA NITROGEN, BLOOD 14 mg/dL (7-18)
[2019-03-17] MEDS ORDERED: BENZ1TAB10 PO (09:28)
[2019-03-17] MEDS ORDERED: PRAZ1 PO (09:28)
[2019-03-17] MEDS ORDERED: GABA-531 PO (09:28)
[2019-03-17] MEDS ORDERED: MIRT15 PO (09:28)
[2019-03-17] MEDS ORDERED: QUET200T29 PO (09:28)
[2019-03-17] MEDS ORDERED: NALT50TA PO (09:28)
[2019-03-17] MEDS ORDERED: QUET300T18 PO (09:28)
[2019-03-17 10:02] VITALS: BP 148/83
[2019-03-17] MEDS: NICOTINE 21 MG/24 HOUR PATCH TD SCH (11:59)
[2019-03-17 16:00] VITALS: BP 114/68
[2019-03-17] MEDS: PRAZOSIN HCL 1 MG CAPSULE PO SCH (20:44)
[2019-03-17] MEDS: ZOLPIDEM TARTRATE 10 MG TABLET PO PRN (20:44)
[2019-03-17] MEDS: QUEtiapine FUMARATE 300 MG TABLET PO SCH (20:44)
[2019-03-17] MEDS ORDERED: MIRTAZAPINE 15 MG TABLET PO SCH (21:00)
[2019-03-18 03:22] VITALS: BP 116/72
[2019-03-18] MEDS ORDERED: MIRT30 PO (08:00)
[2019-03-18] MEDS ORDERED: GABA-531 PO (08:00)
[2019-03-18] MEDS ORDERED: BENZ1TAB10 PO (08:00)
[2019-03-18 08:01] VITALS: BP 140/90
[2019-03-18] MEDS: AZITHROMYCIN 250 MG TABLET PO SCH (08:44)
[2019-03-18] MEDS: LACTOBACILLUS ACIDOPHILUS/BULGARICUS GRANULES PACKET PO SCH (08:44)
[2019-03-18] MEDS: MULTIVITAMINS WITH MINERALS, THERAPEUTIC TABLET PO SCH (08:45)
[2019-03-18] MEDS: THIAMINE HCL 100 MG TABLET PO SCH (08:45)
[2019-03-18] MEDS: NALTREXONE HCL 50 MG TABLET PO SCH (08:45)
[2019-03-18] MEDS: QUEtiapine FUMARATE 200 MG TABLET PO SCH (08:45)
[2019-03-18] MEDS: FOLIC ACID 1 MG TABLET PO SCH (08:45)
[2019-03-18] MEDS: BENZTROPINE MESYLATE 1 MG TABLET PO SCH (08:45)
[2019-03-18] MEDS: NICOTINE 21 MG/24 HOUR PATCH TD SCH (08:45)
[2019-03-18] MEDS: GABAPENTIN 300 MG CAPSULE PO SCH (08:45)
[2019-03-18] MEDS ORDERED: THIA100T67 PO (09:07)
[2019-03-18] MEDS ORDERED: AZIT250T9 PO (09:07)
[2019-04-06] MEDS ORDERED: PALIPERIDONE PALMITATE 117 MG/0.75 ML SYRINGE IM SCH (09:00)
== END 2019-03-18 10:05 | disposition home or self-care (01) | DRG 885 ==
LOC: B3A 13:02
PROVIDERS: ADMIT Psychiatry & Neurology Psychiatry; ATTEND Psychiatry & Neurology Psychiatry
DX: F25.0 Schizoaffective disorder, bipolar type (principal); R45.851 Suicidal ideations; B19.20 Unspecified viral hepatitis C without hepatic coma; E78.5 Hyperlipidemia, unspecified; F41.9 Anxiety disorder, unspecified; G47.00 Insomnia, unspecified; I10 Essential (primary) hypertension; J44.9 Chronic obstructive pulmonary disease, unspecified; F10.10 Alcohol abuse, uncomplicated; K52.9 Noninfective gastroenteritis and colitis, unspecified; Z59.9 Problem related to housing and economic circumstances, unspecified; Z65.3 Problems related to other legal circumstances; Z79.899 Other long term (current) drug therapy; Z88.8 Allergy status to other drugs, medicaments and biological substances; Z91.19 Patient's noncompliance with other medical treatment and regimen
CPT/HCPCS: 80307; 83735; 84100; 85007; 87045; 87081; J3420

== ENCOUNTER 2019-05-07 09:03 | Emergency (ER) | payer MEDICARE, OTHER ==
[~2019-05-07] VITALS: Ht 177.8 cm; Wt 90.0 kg
[~2019-05-07 09:03] MED LIST changes: +AZIT250T9 PO; +BENZ1TAB10 PO; -FOLI1 PO; -MIRT15 PO; +MIRT30 PO; -NALT50TA6 PO; -QUET200T PO; -QUET300T2 PO; +THIA100T67 PO
[2019-05-07] MEDS ORDERED: QUET300T2 PO (09:12)
[2019-05-07 09:40] VITALS: BP 140/88
== END 2019-05-07 11:53 | disposition home or self-care (01) ==
LOC: EMS 09:09
DX: S30.1XXA Contusion of abdominal wall, initial encounter (principal); F10.129 Alcohol abuse with intoxication, unspecified; F25.9 Schizoaffective disorder, unspecified; F17.210 Nicotine dependence, cigarettes, uncomplicated; J44.9 Chronic obstructive pulmonary disease, unspecified; I10 Essential (primary) hypertension; Z88.8 Allergy status to other drugs, medicaments and biological substances; Y04.0XXA Assault by unarmed brawl or fight, initial encounter; Y93.89 Activity, other specified; Y92.89 Other specified places as the place of occurrence of the external cause; Y99.8 Other external cause status
CPT/HCPCS: 99406

== ENCOUNTER 2019-05-13 16:53 | Inpatient (IN) | payer MEDICARE, MEDICAID ==
[~2019-05-13] VITALS: Ht 175.3 cm; Wt 95.7 kg
[~2019-05-13 16:53] MED LIST changes: -AZIT250T9 PO; -BENZ1TAB10 PO; -GABA-531 PO; -MIRT30 PO; -NALT50TA PO; -PRAZ1 PO; -QUET200T29 PO; -QUET300T18 PO; +QUET300T2 PO; -THIA100T67 PO
[2019-05-13] MEDS ORDERED: PROMETHAZINE HCL 25 MG TABLET PO PRN (17:30)
[2019-05-13] MEDS ORDERED: GuaiFENesin/D-METHORPHAN [SUGAR-FREE] 200-20MG/10 ML SYRUP UDCUP PO PRN (17:30)
[2019-05-13] MEDS ORDERED: MAGNESIUM HYDROXIDE SUSPENSION 30 ML UDCUP PO PRN (17:30)
[2019-05-13] MEDS ORDERED: HydrOXYzine PAMOATE 50 MG CAPSULE PO PRN (17:30)
[2019-05-13] MEDS ORDERED: CYANOCOBALAMIN 1,000 MCG/ML VIAL IM ONE (17:30)
[2019-05-13] MEDS ORDERED: LORazepam 2 MG TABLET PO ONE (17:30)
[2019-05-13] MEDS ORDERED: MAG HYDROX/AL HYDROX/SIMETH ES 30 ML SUSPENSION UDCUP PO PRN (17:30)
[2019-05-13] MEDS ORDERED: QUEtiapine FUMARATE 100 MG TABLET PO PRN (17:30)
[2019-05-13] MEDS ORDERED: LORazepam 2 MG TABLET PO PRN (17:30)
[2019-05-13] MEDS ORDERED: ACETAMINOPHEN 325 MG TABLET PO PRN (17:30)
[2019-05-13] MEDS ORDERED: LOPERAMIDE HCL 2 MG CAPSULE PO PRN ×2 (17:30)
[2019-05-13 17:45] VITALS: BP 144/97
[2019-05-13 18:45] VITALS: BP 139/99
[2019-05-13 19:41] VITALS: BP 144/97
[2019-05-13 19:45] VITALS: BP 141/85
[2019-05-13] MEDS: THIAMINE HCL 100 MG TABLET PO SCH (19:45)
[2019-05-13] MEDS: PRAZOSIN HCL 1 MG CAPSULE PO SCH (20:28)
[2019-05-13] MEDS: QUEtiapine FUMARATE 200 MG TABLET PO SCH (20:28)
[2019-05-13] MEDS: GABAPENTIN 300 MG CAPSULE PO SCH (20:28)
[2019-05-13 20:45] VITALS: BP 106/59
[2019-05-13] MEDS ORDERED: QUET25TA PO (23:03)
[2019-05-13] MEDS ORDERED: GABA-531 PO (23:03)
[2019-05-13] MEDS ORDERED: NALT50TA6 PO (23:03)
[2019-05-13] MEDS ORDERED: PRAZ1 PO (23:03)
[2019-05-13] MEDS ORDERED: QUET200T PO (23:03)
[2019-05-14] VITALS (8 sets, daily range): BP systolic 110–147; BP diastolic 68–93
[2019-05-14] MEDS ORDERED: LORazepam 2 MG TABLET PO PRN (07:00)
[2019-05-14] MEDS: FOLIC ACID 1 MG TABLET PO SCH (09:05)
[2019-05-14] MEDS: NALTREXONE HCL 50 MG TABLET PO SCH (09:05)
[2019-05-14] MEDS: GABAPENTIN 300 MG CAPSULE PO SCH ×2 (09:06→12:45)
[2019-05-14] MEDS: MULTIVITAMINS WITH MINERALS, THERAPEUTIC TABLET PO SCH (09:07)
[2019-05-14] MEDS: QUEtiapine FUMARATE 25 MG TABLET PO SCH ×3 (09:08→16:35)
[2019-05-14] MEDS: THIAMINE HCL 100 MG TABLET PO SCH ×2 (09:09→16:35)
[2019-05-14] MEDS: LORazepam 2 MG TABLET PO SCH ×4 (09:10→20:33)
[2019-05-14] MEDS: GABAPENTIN 400 MG CAPSULE PO SCH ×2 (16:35→20:32)
[2019-05-14] MEDS: PRAZOSIN HCL 1 MG CAPSULE PO SCH (20:32)
[2019-05-14] MEDS: QUEtiapine FUMARATE 200 MG TABLET PO SCH (20:33)
[2019-05-15] VITALS (8 sets, daily range): BP systolic 114–138; BP diastolic 80–92
[2019-05-15 08:39] LABS: BASOPHILS % (AUTO) 0.4 % (0.0-2.0); EOSINOPHILS % (AUTO) 0.8 % (1.0-6.0); HEMATOCRIT 51.7 % (41-53); HEMOGLOBIN 17.3 g/dL (13.5-17.5); LYMPHOCYTES # (AUTO) 2.7 K/uL (1.0-4.8); LYMPHOCYTES % (AUTO) 39.8 % (22.0-44.0); MEAN CORPUSCULAR HEMOGLOBIN 32.6 pg (26.0-34.0); MEAN CORPUSCULAR HGB CONC 33.4 G/dL (31.0-37.0); MEAN CORPUSCULAR VOLUME 98 fL (80-100); MONOCYTES # (AUTO) 0.7 K/uL (0.1-1.0); MONOCYTES % (AUTO) 10.4 % (2.0-9.0); NEUTROPHILS # (AUTO) 3.3 K/uL (1.8-7.7); NEUTROPHILS % (AUTO) 48.6 % (40.0-70.0); PLATELET COUNT (AUTO) 111 K/uL (150-450); RED CELL DISTRIBUTION WIDTH 14.9 % (11.5-14.5)
[2019-05-15] MEDS: LORazepam 2 MG TABLET PO SCH ×4 (08:43→20:51)
[2019-05-15] MEDS: THIAMINE HCL 100 MG TABLET PO SCH ×2 (08:43→16:55)
[2019-05-15] MEDS: FOLIC ACID 1 MG TABLET PO SCH (08:43)
[2019-05-15] MEDS: QUEtiapine FUMARATE 25 MG TABLET PO SCH ×3 (08:43→16:55)
[2019-05-15] MEDS: MULTIVITAMINS WITH MINERALS, THERAPEUTIC TABLET PO SCH (08:43)
[2019-05-15] MEDS: GABAPENTIN 400 MG CAPSULE PO SCH ×4 (08:43→20:51)
[2019-05-15] MEDS: NALTREXONE HCL 50 MG TABLET PO SCH (08:44)
[2019-05-15 08:57] LABS: HEMOGLOBIN A1C 5.6 % (4.5-6.2)
[2019-05-15 09:07] LABS: ALANINE AMINOTRANSFERASE 73 U/L (12-78); ALKALINE PHOSPHATASE 69 U/L (46-116); ANION GAP 13 mmol/L (8-16); ASPARTATE AMINOTRANSFERASE 49 U/L (15-37); BILIRUBIN,TOTAL 0.6 mg/dL (0.1-1.0); CALCIUM, TOTAL 8.6 mg/dL (8.8-10.5); CARBON DIOXIDE 24 mmol/L (22-29); CHLORIDE 101 mmol/L (98-107); CHOL/HDL RATIO 2.9 (4.2-7.3); CHOLESTEROL 216 mg/dL (131-200); FREE T4 (FREE THYROXINE) 0.74 ng/dL (0.76-1.46); GLOMERULAR FILTR. RATE CALC > 60 mL/min (>60); GLUCOSE,RANDOM 124 mg/dL (70-110); HDL CHOLESTEROL 75 mg/dL (40-60); LDL CHOL (CALC.) 117 mg/dL (0-130); SODIUM SERUM 138 mmol/L (136-145); THYROID STIMULATING HORMONE 1.51 uIU/mL (0.36-3.74); TOTAL PROTEIN, SERUM 6.3 g/dL (6.4-8.2); TRIGLYCERIDES 121 mg/dL (15-150); UREA NITROGEN, BLOOD 9 mg/dL (7-18)
[2019-05-15 09:30] LABS: ALBUMIN 3.4 g/dL (3.4-5.0)
[2019-05-15] MEDS ORDERED: POTASSIUM CHLORIDE 20 MEQ ER TABLET PO ONE (11:45)
[2019-05-15] MEDS: QUEtiapine FUMARATE 200 MG TABLET PO SCH (20:50)
[2019-05-15] MEDS: PRAZOSIN HCL 1 MG CAPSULE PO SCH (20:51)
[2019-05-16 00:38] VITALS: BP 140/81
[2019-05-16] MEDS ORDERED: LORazepam 1 MG TABLET PO PRN (07:00)
[2019-05-16 07:14] LABS: ANION GAP 11 mmol/L (8-16); CALCIUM, TOTAL 8.4 mg/dL (8.8-10.5); CARBON DIOXIDE 25 mmol/L (22-29); CHLORIDE 101 mmol/L (98-107); GLOMERULAR FILTR. RATE CALC > 60 mL/min (>60); GLUCOSE,RANDOM 144 mg/dL (70-110); POTASSIUM 3.5 mmol/L (3.5-5.1); SODIUM SERUM 137 mmol/L (136-145); UREA NITROGEN, BLOOD 10 mg/dL (7-18)
[2019-05-16 08:11] VITALS: BP 137/90
[2019-05-16 08:15] VITALS: BP 137/90
[2019-05-16] MEDS: NALTREXONE HCL 50 MG TABLET PO SCH (08:52)
[2019-05-16] MEDS: GABAPENTIN 400 MG CAPSULE PO SCH ×4 (08:52→20:17)
[2019-05-16] MEDS: THIAMINE HCL 100 MG TABLET PO SCH ×2 (08:52→16:21)
[2019-05-16] MEDS: LORazepam 1 MG TABLET PO SCH ×4 (08:52→20:17)
[2019-05-16] MEDS: QUEtiapine FUMARATE 25 MG TABLET PO SCH ×3 (08:52→16:21)
[2019-05-16] MEDS: FOLIC ACID 1 MG TABLET PO SCH (08:52)
[2019-05-16] MEDS: MULTIVITAMINS WITH MINERALS, THERAPEUTIC TABLET PO SCH (08:52)
[2019-05-16 16:12] VITALS: BP 119/72
[2019-05-16 16:13] VITALS: BP 119/72
[2019-05-16 20:15] VITALS: BP 138/88
[2019-05-16] MEDS: QUEtiapine FUMARATE 200 MG TABLET PO SCH (20:17)
[2019-05-16] MEDS: PRAZOSIN HCL 1 MG CAPSULE PO SCH (20:17)
[2019-05-17 00:52] VITALS: BP 130/81
[2019-05-17] MEDS ORDERED: LORazepam 1 MG TABLET PO PRN (07:00)
[2019-05-17 08:42] VITALS: BP 125/89
[2019-05-17] MEDS: QUEtiapine FUMARATE 25 MG TABLET PO SCH ×3 (09:27→16:07)
[2019-05-17] MEDS: FOLIC ACID 1 MG TABLET PO SCH (09:27)
[2019-05-17] MEDS: THIAMINE HCL 100 MG TABLET PO SCH ×2 (09:27→16:08)
[2019-05-17] MEDS: NALTREXONE HCL 50 MG TABLET PO SCH (09:27)
[2019-05-17] MEDS: MULTIVITAMINS WITH MINERALS, THERAPEUTIC TABLET PO SCH (09:27)
[2019-05-17] MEDS: GABAPENTIN 400 MG CAPSULE PO SCH ×4 (09:27→20:07)
[2019-05-17 10:05] VITALS: BP 125/89
[2019-05-17 16:42] VITALS: BP 131/86
[2019-05-17 16:43] VITALS: BP 131/86
[2019-05-17 20:05] VITALS: BP 131/82
[2019-05-17] MEDS: QUEtiapine FUMARATE 200 MG TABLET PO SCH (20:07)
[2019-05-17] MEDS: PRAZOSIN HCL 1 MG CAPSULE PO SCH (20:07)
[2019-05-18] VITALS (7 sets, daily range): BP systolic 118–148; BP diastolic 72–102
[2019-05-18] MEDS: MULTIVITAMINS WITH MINERALS, THERAPEUTIC TABLET PO SCH (09:11)
[2019-05-18] MEDS: QUEtiapine FUMARATE 25 MG TABLET PO SCH ×3 (09:11→16:30)
[2019-05-18] MEDS: FOLIC ACID 1 MG TABLET PO SCH (09:11)
[2019-05-18] MEDS: NALTREXONE HCL 50 MG TABLET PO SCH (09:11)
[2019-05-18] MEDS: THIAMINE HCL 100 MG TABLET PO SCH ×2 (09:11→16:30)
[2019-05-18] MEDS: GABAPENTIN 400 MG CAPSULE PO SCH ×4 (09:11→20:32)
[2019-05-18] MEDS: PRAZOSIN HCL 1 MG CAPSULE PO SCH (20:32)
[2019-05-18] MEDS ORDERED: QUEtiapine FUMARATE 200 MG TABLET PO SCH (21:00)
[2019-05-19 04:09] VITALS: BP 105/60
[2019-05-19 04:10] VITALS: BP 105/60
[2019-05-19 08:07] VITALS: BP 156/90
[2019-05-19] MEDS: FOLIC ACID 1 MG TABLET PO SCH (08:36)
[2019-05-19] MEDS: MULTIVITAMINS WITH MINERALS, THERAPEUTIC TABLET PO SCH (08:36)
[2019-05-19] MEDS: THIAMINE HCL 100 MG TABLET PO SCH ×2 (08:36→16:32)
[2019-05-19] MEDS: GABAPENTIN 400 MG CAPSULE PO SCH ×4 (08:36→20:46)
[2019-05-19] MEDS: NALTREXONE HCL 50 MG TABLET PO SCH (08:36)
[2019-05-19] MEDS: QUEtiapine FUMARATE 25 MG TABLET PO SCH ×3 (08:36→16:31)
[2019-05-19 09:37] VITALS: BP 130/93
[2019-05-19] MEDS ORDERED: LORazepam 2 MG TABLET PO PRN (14:00)
[2019-05-19] MEDS ORDERED: LORazepam 2 MG TABLET PO ONE (14:00)
[2019-05-19] MEDS: ACAMPROSATE CALCIUM 333 MG DR TABLET PO SCH (16:31)
[2019-05-19 17:08] VITALS: BP 116/88
[2019-05-19 20:45] VITALS: BP 114/86
[2019-05-19] MEDS: PRAZOSIN HCL 1 MG CAPSULE PO SCH (20:46)
[2019-05-19] MEDS ORDERED: QUEtiapine FUMARATE 300 MG TABLET PO SCH (21:00)
[2019-05-20 01:45] VITALS: BP 127/74
[2019-05-20 08:20] VITALS: BP 129/70
[2019-05-20] MEDS: NALTREXONE HCL 50 MG TABLET PO SCH (08:31)
[2019-05-20] MEDS: GABAPENTIN 400 MG CAPSULE PO SCH ×2 (08:31→12:09)
[2019-05-20] MEDS: QUEtiapine FUMARATE 25 MG TABLET PO SCH ×2 (08:31→12:09)
[2019-05-20] MEDS: MULTIVITAMINS WITH MINERALS, THERAPEUTIC TABLET PO SCH (08:31)
[2019-05-20] MEDS: ACAMPROSATE CALCIUM 333 MG DR TABLET PO SCH ×3 (08:31→16:29)
[2019-05-20] MEDS: THIAMINE HCL 100 MG TABLET PO SCH ×2 (08:31→16:29)
[2019-05-20] MEDS: FOLIC ACID 1 MG TABLET PO SCH (08:31)
[2019-05-20] MEDS ORDERED: QUET200T29 PO (13:49)
[2019-05-20] MEDS ORDERED: PRAZ1 PO (13:49)
[2019-05-20] MEDS ORDERED: GABA-531 PO (13:49)
[2019-05-20] MEDS ORDERED: ACAM333T7 PO (13:49)
[2019-05-20] MEDS ORDERED: MIRT15 PO (13:49)
[2019-05-20] MEDS ORDERED: TOPI25 PO (13:49)
[2019-05-20] MEDS ORDERED: NALT50TA PO (13:49)
[2019-05-20 16:08] VITALS: BP 130/81
[2019-05-20] MEDS: TOPIRAMATE 25 MG TABLET PO SCH (16:29)
[2019-05-20] MEDS: GABAPENTIN 300 MG CAPSULE PO SCH (16:30)
[2019-05-20 20:38] VITALS: BP 114/87
[2019-05-20] MEDS: PRAZOSIN HCL 1 MG CAPSULE PO SCH (20:39)
[2019-05-20] MEDS ORDERED: MIRTAZAPINE 15 MG TABLET PO SCH (21:00)
[2019-05-20] MEDS ORDERED: QUEtiapine FUMARATE 200 MG TABLET PO SCH (21:00)
[2019-05-21 05:30] VITALS: BP 124/86
[2019-05-21] MEDS: TOPIRAMATE 25 MG TABLET PO SCH ×2 (08:22→12:22)
[2019-05-21] MEDS: NALTREXONE HCL 50 MG TABLET PO SCH (08:22)
[2019-05-21] MEDS: THIAMINE HCL 100 MG TABLET PO SCH (08:22)
[2019-05-21] MEDS: MULTIVITAMINS WITH MINERALS, THERAPEUTIC TABLET PO SCH (08:22)
[2019-05-21] MEDS: GABAPENTIN 300 MG CAPSULE PO SCH ×2 (08:22→12:22)
[2019-05-21] MEDS: ACAMPROSATE CALCIUM 333 MG DR TABLET PO SCH ×2 (08:22→12:22)
[2019-05-21] MEDS: FOLIC ACID 1 MG TABLET PO SCH (08:22)
[2019-05-21 08:45] VITALS: BP 120/73
[2019-05-21] MEDS ORDERED: GABA-531 PO (09:03)
[2019-05-21] MEDS ORDERED: MIRT15 PO (09:03)
[2019-05-21] MEDS ORDERED: QUET200T PO (09:03)
[2019-05-21] MEDS ORDERED: ACAM333T7 PO (09:03)
[2019-05-21] MEDS ORDERED: TOPI25 PO (09:03)
== END 2019-05-21 13:27 | disposition home or self-care (01) | DRG 885 ==
LOC: EDSTATUS 16:53 → B2X 17:21 → EDSTATUS 18:59
PROVIDERS: ADMIT Psychiatry & Neurology Psychiatry; ATTEND Psychiatry & Neurology Psychiatry
DX: F25.0 Schizoaffective disorder, bipolar type (principal); B19.20 Unspecified viral hepatitis C without hepatic coma; R45.851 Suicidal ideations; E66.9 Obesity, unspecified; E78.5 Hyperlipidemia, unspecified; F10.20 Alcohol dependence, uncomplicated; F41.9 Anxiety disorder, unspecified; F32.9 Major depressive disorder, single episode, unspecified; G47.00 Insomnia, unspecified; I10 Essential (primary) hypertension; J44.9 Chronic obstructive pulmonary disease, unspecified; Z91.19 Patient's noncompliance with other medical treatment and regimen; Z79.899 Other long term (current) drug therapy; Z68.31 Body mass index [BMI] 31.0-31.9, adult; Z88.8 Allergy status to other drugs, medicaments and biological substances
CPT/HCPCS: 83036; 84439; 84443; J3420

== ENCOUNTER 2019-06-16 15:25 | Inpatient (IN) | payer MEDICARE, MEDICAID, OTHER ==
[~2019-06-16] VITALS: Ht 175.3 cm; Wt 93.0 kg
[~2019-06-16 15:25] MED LIST changes: +ACAM333T7 PO; +GABA-531 PO; +MIRT15 PO; +NALT50TA PO; +NALT50TA6 PO; +PRAZ1 PO; +QUET200T PO; +QUET200T29 PO; -QUET300T2 PO; +TOPI25 PO
[2019-06-16 15:39] VITALS: BP 124/91
[2019-06-16] MEDS ORDERED: HydrOXYzine PAMOATE 50 MG CAPSULE PO PRN (15:45)
[2019-06-16] MEDS ORDERED: GuaiFENesin/D-METHORPHAN [SUGAR-FREE] 200-20MG/10 ML SYRUP UDCUP PO PRN (15:45)
[2019-06-16] MEDS ORDERED: ACETAMINOPHEN 325 MG TABLET PO PRN (15:45)
[2019-06-16] MEDS ORDERED: CYANOCOBALAMIN 1,000 MCG/ML VIAL IM ONE (15:45)
[2019-06-16] MEDS ORDERED: LOPERAMIDE HCL 2 MG CAPSULE PO PRN (15:45)
[2019-06-16] MEDS ORDERED: ZOLPIDEM TARTRATE 10 MG TABLET PO PRN (15:45)
[2019-06-16] MEDS ORDERED: MAG HYDROX/AL HYDROX/SIMETH ES 30 ML SUSPENSION UDCUP PO PRN (15:45)
[2019-06-16] MEDS ORDERED: PROMETHAZINE HCL 25 MG TABLET PO PRN (15:45)
[2019-06-16] MEDS ORDERED: QUEtiapine FUMARATE 100 MG TABLET PO PRN (15:45)
[2019-06-16] MEDS ORDERED: DIAZEPAM 10 MG TABLET PO PRN (15:45)
[2019-06-16] MEDS ORDERED: MAGNESIUM HYDROXIDE SUSPENSION 30 ML UDCUP PO PRN (15:45)
[2019-06-16 17:00] VITALS: BP 107/81
[2019-06-16] MEDS: GABAPENTIN 300 MG CAPSULE PO SCH ×2 (17:06→20:08)
[2019-06-16] MEDS: THIAMINE HCL 100 MG TABLET PO SCH (17:06)
[2019-06-16] MEDS: TOPIRAMATE 25 MG TABLET PO SCH (17:06)
[2019-06-16] MEDS: INFLUENZA VIRUS VACCINE QVS 2019-20 (3YR+)/PF 60 MCG/0.5 ML SYRINGE IM ONE (17:30)
[2019-06-16 18:00] VITALS: BP 114/86
[2019-06-16 19:00] VITALS: BP 115/75
[2019-06-16 20:00] VITALS: BP 115/75
[2019-06-16] MEDS: PRAZOSIN HCL 1 MG CAPSULE PO SCH (20:07)
[2019-06-16] MEDS: MIRTAZAPINE 15 MG TABLET PO SCH (20:08)
[2019-06-16 21:00] VITALS: BP 116/74
[2019-06-16] MEDS ORDERED: QUEtiapine FUMARATE 200 MG TABLET PO SCH (21:00)
[2019-06-17 00:24] VITALS: BP 110/68
[2019-06-17 01:00] VITALS: BP 120/81
[2019-06-17 05:00] VITALS: BP 126/80
[2019-06-17] MEDS ORDERED: DIAZEPAM 10 MG TABLET PO PRN (07:00)
[2019-06-17 08:14] VITALS: BP 121/76
[2019-06-17] MEDS: GABAPENTIN 300 MG CAPSULE PO SCH ×4 (08:30→21:32)
[2019-06-17] MEDS: TOPIRAMATE 25 MG TABLET PO SCH ×3 (08:30→16:14)
[2019-06-17] MEDS: THIAMINE HCL 100 MG TABLET PO SCH ×2 (08:30→16:14)
[2019-06-17] MEDS: FOLIC ACID 1 MG TABLET PO SCH (08:30)
[2019-06-17] MEDS: NALTREXONE HCL 50 MG TABLET PO SCH (08:30)
[2019-06-17] MEDS: MULTIVITAMINS WITH MINERALS, THERAPEUTIC TABLET PO SCH (08:30)
[2019-06-17] MEDS: DIAZEPAM 10 MG TABLET PO SCH ×4 (08:31→21:32)
[2019-06-17] MEDS: INFLUENZA VIRUS VACCINE QVS 2019-20 (3YR+)/PF 60 MCG/0.5 ML SYRINGE IM ONE (08:50)
[2019-06-17 16:04] VITALS: BP 118/82
[2019-06-17 17:00] VITALS: BP 118/82
[2019-06-17] MEDS: MIRTAZAPINE 15 MG TABLET PO SCH (21:32)
[2019-06-17] MEDS: PRAZOSIN HCL 1 MG CAPSULE PO SCH (21:32)
[2019-06-17] MEDS: QUEtiapine FUMARATE 200 MG TABLET PO SCH (21:32)
[2019-06-18 00:11] VITALS: BP 110/68
[2019-06-18] MEDS: MULTIVITAMINS WITH MINERALS, THERAPEUTIC TABLET PO SCH (08:11)
[2019-06-18] MEDS: GABAPENTIN 300 MG CAPSULE PO SCH ×4 (08:11→20:18)
[2019-06-18] MEDS: FOLIC ACID 1 MG TABLET PO SCH (08:11)
[2019-06-18] MEDS: THIAMINE HCL 100 MG TABLET PO SCH ×2 (08:11→16:17)
[2019-06-18] MEDS: DIAZEPAM 10 MG TABLET PO SCH ×4 (08:11→20:19)
[2019-06-18] MEDS: TOPIRAMATE 25 MG TABLET PO SCH ×3 (08:11→16:17)
[2019-06-18] MEDS: NALTREXONE HCL 50 MG TABLET PO SCH (08:12)
[2019-06-18 08:18] LABS: BASOPHILS % (AUTO) 0.6 % (0.0-2.0); EOSINOPHILS % (AUTO) 1.5 % (1.0-6.0); HEMATOCRIT 50.3 % (41-53); HEMOGLOBIN 17.7 g/dL (13.5-17.5); LYMPHOCYTES # (AUTO) 1.8 K/uL (1.0-4.8); LYMPHOCYTES % (AUTO) 36.1 % (22.0-44.0); MEAN CORPUSCULAR HEMOGLOBIN 33.9 pg (26.0-34.0); MEAN CORPUSCULAR HGB CONC 35.3 G/dL (31.0-37.0); MEAN CORPUSCULAR VOLUME 96 fL (80-100); MONOCYTES # (AUTO) 0.8 K/uL (0.1-1.0); NEUTROPHILS # (AUTO) 2.4 K/uL (1.8-7.7); NEUTROPHILS % (AUTO) 46.8 % (40.0-70.0); RED BLOOD CELL COUNT(AUTO) 5.23 MIL/uL (4.50-5.90); RED CELL DISTRIBUTION WIDTH 14.8 % (11.5-14.5)
[2019-06-18 08:19] VITALS: BP 122/86
[2019-06-18 08:20] VITALS: BP 122/86
[2019-06-18 08:45] LABS: PLATELET COUNT (AUTO) 102 K/uL (150-450)
[2019-06-18 09:04] LABS: ALANINE AMINOTRANSFERASE 146 U/L (12-78); ALBUMIN 3.4 g/dL (3.4-5.0); ALKALINE PHOSPHATASE 75 U/L (46-116); ANION GAP 10 mmol/L (8-16); ASPARTATE AMINOTRANSFERASE 88 U/L (15-37); BILIRUBIN,TOTAL 0.5 mg/dL (0.1-1.0); CALCIUM, TOTAL 8.6 mg/dL (8.8-10.5); CARBON DIOXIDE 24 mmol/L (22-29); CHLORIDE 102 mmol/L (98-107); CHOL/HDL RATIO 2.8 (4.2-7.3); CHOLESTEROL 197 mg/dL (131-200); CREATININE 0.89 mg/dL (0.60-1.30); FREE T4 (FREE THYROXINE) 0.74 ng/dL (0.76-1.46); GLOMERULAR FILTR. RATE CALC > 60 mL/min (>60); GLUCOSE,RANDOM 125 mg/dL (70-110); HDL CHOLESTEROL 70 mg/dL (40-60); HEMOGLOBIN A1C 5.6 % (4.5-6.2); LDL CHOL (CALC.) 108 mg/dL (0-130); POTASSIUM 3.5 mmol/L (3.5-5.1); SODIUM SERUM 136 mmol/L (136-145); THYROID STIMULATING HORMONE 2.24 uIU/mL (0.36-3.74); TOTAL PROTEIN, SERUM 6.5 g/dL (6.4-8.2); TRIGLYCERIDES 93 mg/dL (15-150); UREA NITROGEN, BLOOD 10 mg/dL (7-18)
[2019-06-18] MEDS ORDERED: PALIPERIDONE PALMITATE 117 MG/0.75 ML SYRINGE IM ONE (16:00)
[2019-06-18 16:15] VITALS: BP 118/89
[2019-06-18 16:20] VITALS: BP 118/89
[2019-06-18] MEDS: QUEtiapine FUMARATE 200 MG TABLET PO SCH (20:18)
[2019-06-18] MEDS: MIRTAZAPINE 15 MG TABLET PO SCH (20:19)
[2019-06-18] MEDS: PRAZOSIN HCL 1 MG CAPSULE PO SCH (20:19)
[2019-06-19 01:47] VITALS: BP 128/79
[2019-06-19 03:52] VITALS: BP 128/79
[2019-06-19] MEDS ORDERED: DIAZEPAM 5 MG TABLET PO PRN (07:00)
[2019-06-19 08:21] VITALS: BP 119/86
[2019-06-19] MEDS: DIAZEPAM 5 MG TABLET PO SCH ×5 (08:26→21:07)
[2019-06-19] MEDS: GABAPENTIN 300 MG CAPSULE PO SCH ×4 (08:26→19:49)
[2019-06-19] MEDS: TOPIRAMATE 25 MG TABLET PO SCH ×3 (08:26→16:21)
[2019-06-19] MEDS: FOLIC ACID 1 MG TABLET PO SCH (08:27)
[2019-06-19] MEDS: THIAMINE HCL 100 MG TABLET PO SCH ×2 (08:27→16:41)
[2019-06-19] MEDS: MULTIVITAMINS WITH MINERALS, THERAPEUTIC TABLET PO SCH (08:27)
[2019-06-19] MEDS: NALTREXONE HCL 50 MG TABLET PO SCH (08:27)
[2019-06-19 08:30] VITALS: BP 119/86
[2019-06-19] MEDS ORDERED: LOPERAMIDE HCL 2 MG CAPSULE PO PRN (15:45)
[2019-06-19 16:07] VITALS: BP 114/77
[2019-06-19 17:30] VITALS: BP 114/77
[2019-06-19] MEDS: MIRTAZAPINE 15 MG TABLET PO SCH (19:49)
[2019-06-19] MEDS: PRAZOSIN HCL 1 MG CAPSULE PO SCH (19:49)
[2019-06-19] MEDS: QUEtiapine FUMARATE 300 MG TABLET PO SCH (19:49)
[2019-06-20 02:13] VITALS: BP 111/73
[2019-06-20] MEDS ORDERED: DIAZEPAM 5 MG TABLET PO PRN (07:00)
[2019-06-20 08:00] VITALS: BP 112/73
[2019-06-20] MEDS: TOPIRAMATE 25 MG TABLET PO SCH ×3 (08:45→16:33)
[2019-06-20] MEDS: MULTIVITAMINS WITH MINERALS, THERAPEUTIC TABLET PO SCH (08:45)
[2019-06-20] MEDS: THIAMINE HCL 100 MG TABLET PO SCH ×2 (08:45→16:33)
[2019-06-20] MEDS: FOLIC ACID 1 MG TABLET PO SCH (08:45)
[2019-06-20] MEDS: GABAPENTIN 300 MG CAPSULE PO SCH ×4 (08:45→20:48)
[2019-06-20] MEDS: NALTREXONE HCL 50 MG TABLET PO SCH (08:45)
[2019-06-20 09:39] VITALS: BP 117/73
[2019-06-20 16:17] VITALS: BP 123/89
[2019-06-20 20:47] VITALS: BP 121/77
[2019-06-20] MEDS: MIRTAZAPINE 15 MG TABLET PO SCH (20:48)
[2019-06-20] MEDS: QUEtiapine FUMARATE 300 MG TABLET PO SCH (20:48)
[2019-06-20] MEDS: PRAZOSIN HCL 1 MG CAPSULE PO SCH (20:48)
[2019-06-20 21:38] VITALS: BP 121/77
[2019-06-21 06:08] VITALS: BP 125/82
[2019-06-21 08:24] VITALS: BP 122/86
[2019-06-21] MEDS: GABAPENTIN 300 MG CAPSULE PO SCH ×4 (08:31→20:31)
[2019-06-21] MEDS: TOPIRAMATE 25 MG TABLET PO SCH ×3 (08:31→16:34)
[2019-06-21] MEDS: FOLIC ACID 1 MG TABLET PO SCH (08:31)
[2019-06-21] MEDS: MULTIVITAMINS WITH MINERALS, THERAPEUTIC TABLET PO SCH (08:31)
[2019-06-21] MEDS: THIAMINE HCL 100 MG TABLET PO SCH ×2 (08:31→16:34)
[2019-06-21] MEDS: NALTREXONE HCL 50 MG TABLET PO SCH (08:31)
[2019-06-21 09:12] VITALS: BP 122/86
[2019-06-21 16:08] VITALS: BP 124/92
[2019-06-21 20:30] VITALS: BP 125/90
[2019-06-21] MEDS: MIRTAZAPINE 15 MG TABLET PO SCH (20:31)
[2019-06-21] MEDS: QUEtiapine FUMARATE 300 MG TABLET PO SCH (20:31)
[2019-06-21] MEDS: PRAZOSIN HCL 1 MG CAPSULE PO SCH (20:31)
[2019-06-22 00:10] VITALS: BP 106/75
[2019-06-22 08:16] VITALS: BP 104/67
[2019-06-22] MEDS: FOLIC ACID 1 MG TABLET PO SCH (08:51)
[2019-06-22] MEDS: THIAMINE HCL 100 MG TABLET PO SCH ×2 (08:51→16:26)
[2019-06-22] MEDS: GABAPENTIN 300 MG CAPSULE PO SCH ×3 (08:51→16:26)
[2019-06-22] MEDS: MULTIVITAMINS WITH MINERALS, THERAPEUTIC TABLET PO SCH (08:51)
[2019-06-22] MEDS: NALTREXONE HCL 50 MG TABLET PO SCH (08:51)
[2019-06-22] MEDS: TOPIRAMATE 25 MG TABLET PO SCH ×3 (08:51→16:26)
[2019-06-22] MEDS ORDERED: MIRT15 PO (15:07)
[2019-06-22] MEDS ORDERED: NALT50TA PO (15:07)
[2019-06-22] MEDS ORDERED: PRAZ1 PO (15:07)
[2019-06-22] MEDS ORDERED: TOPI25 PO ×2 (15:07→16:29)
[2019-06-22] MEDS ORDERED: QUET300T18 PO (15:07)
[2019-06-22] MEDS ORDERED: GABA-531 PO (15:07)
[2019-06-22] MEDS ORDERED: NALT50TA6 PO (16:29)
[2019-06-22] MEDS ORDERED: MULT-723 PO (16:36)
[2019-06-22] MEDS ORDERED: THIA100T67 PO (16:36)
[2019-06-22] MEDS ORDERED: FOLI1 PO (16:36)
[2019-06-22 17:11] VITALS: BP 111/88
[2019-07-16] MEDS ORDERED: PALIPERIDONE PALMITATE 117 MG/0.75 ML SYRINGE IM SCH (09:00)
== END 2019-06-22 18:50 | disposition home or self-care (01) | DRG 885 ==
LOC: B2X 16:45
PROVIDERS: ADMIT Psychiatry & Neurology Psychiatry; ATTEND Psychiatry & Neurology Psychiatry
PROC: 3E0234Z Introduction of Serum, Toxoid and Vaccine into Muscle, Percutaneous Approach (ICD-10-PCS; principal; 2019-06-17)
DX: F25.0 Schizoaffective disorder, bipolar type (principal); B19.20 Unspecified viral hepatitis C without hepatic coma; R45.851 Suicidal ideations; Z23 Encounter for immunization; Z88.8 Allergy status to other drugs, medicaments and biological substances; D69.59 Other secondary thrombocytopenia; D75.1 Secondary polycythemia; E66.9 Obesity, unspecified; Z68.30 Body mass index [BMI] 30.0-30.9, adult; E78.5 Hyperlipidemia, unspecified; F10.10 Alcohol abuse, uncomplicated; Y90.9 Presence of alcohol in blood, level not specified; F12.90 Cannabis use, unspecified, uncomplicated; I10 Essential (primary) hypertension; J44.9 Chronic obstructive pulmonary disease, unspecified; N40.0 Benign prostatic hyperplasia without lower urinary tract symptoms; Z59.0 Homelessness; Z91.19 Patient's noncompliance with other medical treatment and regimen
CPT/HCPCS: 83036; 84439; 84443; 86592; 87081; 90686; 93005; J3420

== ENCOUNTER 2019-07-05 17:48 | Inpatient (IN) | payer MEDICARE, MEDICAID ==
[~2019-07-05] VITALS: Ht 175.3 cm; Wt 89.4 kg
[~2019-07-05 17:48] MED LIST changes: -ACAM333T7 PO; +FOLI1 PO; +MULT-723 PO; -QUET200T29 PO; +QUET300T18 PO; +THIA100T67 PO
[2019-07-05] MEDS ORDERED: ZOLPIDEM TARTRATE 10 MG TABLET PO PRN (18:15)
[2019-07-05] MEDS ORDERED: ChlorproMAZINE HCL 100 MG TABLET PO PRN (18:15)
[2019-07-05 19:22] LABS: BASOPHILS % (AUTO) 0.7 % (0.0-2.0); EOSINOPHILS % (AUTO) 1.3 % (1.0-6.0); HEMOGLOBIN 18.3 g/dL (13.5-17.5); LYMPHOCYTES # (AUTO) 3.2 K/uL (1.0-4.8); LYMPHOCYTES % (AUTO) 42.8 % (22.0-44.0); MEAN CORPUSCULAR HEMOGLOBIN 33.9 pg (26.0-34.0); MEAN CORPUSCULAR HGB CONC 34.6 G/dL (31.0-37.0); MEAN CORPUSCULAR VOLUME 98 fL (80-100); MONOCYTES # (AUTO) 0.7 K/uL (0.1-1.0); NEUTROPHILS # (AUTO) 3.4 K/uL (1.8-7.7); NEUTROPHILS % (AUTO) 45.2 % (40.0-70.0); PLATELET COUNT (AUTO) 163 K/uL (150-450); RED BLOOD CELL COUNT(AUTO) 5.41 MIL/uL (4.50-5.90)
[2019-07-05 19:28] LABS: ANION GAP 11 mmol/L (8-16); CALCIUM, TOTAL 8.3 mg/dL (8.8-10.5); CARBON DIOXIDE 25 mmol/L (22-29); CHLORIDE 103 mmol/L (98-107); CREATININE 0.82 mg/dL (0.60-1.30); GLOMERULAR FILTR. RATE CALC > 60 mL/min (>60); GLUCOSE,RANDOM 87 mg/dL (70-110); POTASSIUM 3.9 mmol/L (3.5-5.1); SODIUM SERUM 139 mmol/L (136-145); UREA NITROGEN, BLOOD 3 mg/dL (7-18)
[2019-07-05 19:34] LABS: ALANINE AMINOTRANSFERASE 347 U/L (12-78); ALBUMIN 3.9 g/dL (3.4-5.0); ALKALINE PHOSPHATASE 79 U/L (46-116); ASPARTATE AMINOTRANSFERASE 248 U/L (15-37); BILIRUBIN,TOTAL 0.4 mg/dL (0.1-1.0); TOTAL PROTEIN, SERUM 7.4 g/dL (6.4-8.2)
[2019-07-06] MEDS ORDERED: -PHARMACY VACCINE NOTE- MISC ONE (01:30)
[2019-07-06] MEDS: LORazepam 1 MG TABLET PO PRN ×2 (01:47→12:39)
[2019-07-06 03:09] VITALS: BP 124/90
[2019-07-06] MEDS ORDERED: CloNIDine HCL 0.1 MG TABLET PO PRN (07:45)
[2019-07-06 09:42] VITALS: BP 145/86
[2019-07-06] MEDS ORDERED: PROMETHAZINE HCL 25 MG TABLET PO PRN (13:15)
[2019-07-06] MEDS ORDERED: CYANOCOBALAMIN 1,000 MCG/ML VIAL IM ONE (13:15)
[2019-07-06] MEDS ORDERED: MAG HYDROX/AL HYDROX/SIMETH ES 30 ML SUSPENSION UDCUP PO PRN (13:15)
[2019-07-06] MEDS ORDERED: MAGNESIUM HYDROXIDE SUSPENSION 30 ML UDCUP PO PRN (13:15)
[2019-07-06] MEDS ORDERED: LOPERAMIDE HCL 2 MG CAPSULE PO PRN ×2 (13:15)
[2019-07-06] MEDS ORDERED: HydrOXYzine PAMOATE 50 MG CAPSULE PO PRN (13:15)
[2019-07-06] MEDS ORDERED: GuaiFENesin/D-METHORPHAN [SUGAR-FREE] 200-20MG/10 ML SYRUP UDCUP PO PRN (13:15)
[2019-07-06] MEDS ORDERED: QUEtiapine FUMARATE 100 MG TABLET PO PRN (13:15)
[2019-07-06 13:30] VITALS: BP 110/90
[2019-07-06 14:35] VITALS: BP 115/87
[2019-07-06] MEDS: DIAZEPAM 10 MG TABLET PO PRN (14:40)
[2019-07-06] MEDS: TOPIRAMATE 25 MG TABLET PO SCH (16:43)
[2019-07-06] MEDS: THIAMINE HCL 100 MG TABLET PO SCH (16:43)
[2019-07-06] MEDS: GABAPENTIN 300 MG CAPSULE PO SCH ×2 (16:43→20:29)
[2019-07-06] MEDS: ACAMPROSATE CALCIUM 333 MG DR TABLET PO SCH (16:43)
[2019-07-06 17:18] VITALS: BP 128/96
[2019-07-06] MEDS: MIRTAZAPINE 15 MG TABLET PO SCH (20:29)
[2019-07-06] MEDS: PRAZOSIN HCL 1 MG CAPSULE PO SCH (20:29)
[2019-07-06] MEDS: QUEtiapine FUMARATE 200 MG TABLET PO SCH (20:29)
[2019-07-06 22:06] LABS: AMPHET/METH SCREEN,URINE NEGATIVE (NEGATIVE); BARBITURATE SCREEN, URINE NEGATIVE (NEGATIVE); BENZODIAZEPINES SCREEN,URINE POSITIVE (NEGATIVE); CANNABINOID SCREEN,URINE POSITIVE (NEGATIVE); COCAINE SCREEN,URINE NEGATIVE (NEGATIVE); METHADONE SCREEN, URINE NEGATIVE (NEGATIVE); OPIATE SCREEN,URINE NEGATIVE (NEGATIVE)
[2019-07-06 22:07] LABS: PHENCYCLIDINE SCREEN,URINE NEGATIVE (NEGATIVE)
[2019-07-07] VITALS (11 sets, daily range): BP systolic 102–136; BP diastolic 47–90
[2019-07-07] MEDS: DIAZEPAM 10 MG TABLET PO PRN (04:31)
[2019-07-07] MEDS ORDERED: DIAZEPAM 10 MG TABLET PO PRN (07:00)
[2019-07-07] MEDS: NALTREXONE HCL 50 MG TABLET PO SCH (09:35)
[2019-07-07] MEDS: ACAMPROSATE CALCIUM 333 MG DR TABLET PO SCH ×3 (09:35→17:07)
[2019-07-07] MEDS: TOPIRAMATE 25 MG TABLET PO SCH ×3 (09:35→17:07)
[2019-07-07] MEDS: THIAMINE HCL 100 MG TABLET PO SCH ×2 (09:35→17:08)
[2019-07-07] MEDS: GABAPENTIN 300 MG CAPSULE PO SCH ×4 (09:35→20:38)
[2019-07-07] MEDS: FOLIC ACID 1 MG TABLET PO SCH (09:35)
[2019-07-07] MEDS: DIAZEPAM 10 MG TABLET PO SCH ×4 (09:35→20:38)
[2019-07-07] MEDS: MULTIVITAMINS WITH MINERALS, THERAPEUTIC TABLET PO SCH (09:35)
[2019-07-07] MEDS: MIRTAZAPINE 15 MG TABLET PO SCH (20:38)
[2019-07-07] MEDS: PRAZOSIN HCL 1 MG CAPSULE PO SCH (20:38)
[2019-07-07] MEDS: QUEtiapine FUMARATE 200 MG TABLET PO SCH (20:38)
[2019-07-08 04:35] VITALS: BP 111/68
[2019-07-08] MEDS: ACETAMINOPHEN 325 MG TABLET PO PRN (04:40)
[2019-07-08 08:23] VITALS: BP 118/78
[2019-07-08] MEDS: MULTIVITAMINS WITH MINERALS, THERAPEUTIC TABLET PO SCH (08:43)
[2019-07-08] MEDS: GABAPENTIN 300 MG CAPSULE PO SCH ×4 (08:43→20:42)
[2019-07-08] MEDS: DIAZEPAM 10 MG TABLET PO SCH ×4 (08:43→20:42)
[2019-07-08] MEDS: THIAMINE HCL 100 MG TABLET PO SCH ×2 (08:44→17:08)
[2019-07-08] MEDS: TOPIRAMATE 25 MG TABLET PO SCH ×3 (08:45→17:09)
[2019-07-08] MEDS: FOLIC ACID 1 MG TABLET PO SCH (08:47)
[2019-07-08] MEDS: ACAMPROSATE CALCIUM 333 MG DR TABLET PO SCH ×3 (08:47→17:09)
[2019-07-08] MEDS: NALTREXONE HCL 50 MG TABLET PO SCH (08:48)
[2019-07-08 12:12] VITALS: BP 122/77
[2019-07-08 16:30] VITALS: BP 129/77
[2019-07-08 19:00] VITALS: BP 124/72
[2019-07-08] MEDS: MIRTAZAPINE 15 MG TABLET PO SCH (20:41)
[2019-07-08] MEDS: PRAZOSIN HCL 1 MG CAPSULE PO SCH (20:42)
[2019-07-08] MEDS: QUEtiapine FUMARATE 200 MG TABLET PO SCH (20:42)
[2019-07-09 06:03] VITALS: BP 122/78
[2019-07-09] MEDS ORDERED: DIAZEPAM 5 MG TABLET PO PRN (07:00)
[2019-07-09 08:00] VITALS: BP 137/89
[2019-07-09] MEDS: TOPIRAMATE 25 MG TABLET PO SCH ×3 (08:49→16:23)
[2019-07-09] MEDS: DIAZEPAM 5 MG TABLET PO SCH ×4 (08:49→20:24)
[2019-07-09] MEDS: ACAMPROSATE CALCIUM 333 MG DR TABLET PO SCH ×3 (08:50→16:23)
[2019-07-09] MEDS: THIAMINE HCL 100 MG TABLET PO SCH ×2 (08:50→16:24)
[2019-07-09] MEDS: MULTIVITAMINS WITH MINERALS, THERAPEUTIC TABLET PO SCH (08:50)
[2019-07-09] MEDS: GABAPENTIN 300 MG CAPSULE PO SCH ×4 (08:50→20:23)
[2019-07-09] MEDS: NALTREXONE HCL 50 MG TABLET PO SCH (08:50)
[2019-07-09] MEDS: FOLIC ACID 1 MG TABLET PO SCH (08:50)
[2019-07-09 17:12] VITALS: BP 123/82
[2019-07-09 17:18] VITALS: BP 123/82
[2019-07-09] MEDS: QUEtiapine FUMARATE 200 MG TABLET PO SCH (20:24)
[2019-07-09] MEDS: PRAZOSIN HCL 1 MG CAPSULE PO SCH (20:24)
[2019-07-09] MEDS: MIRTAZAPINE 15 MG TABLET PO SCH (20:24)
[2019-07-09 22:12] VITALS: BP 128/80
[2019-07-09] MEDS: ACETAMINOPHEN 325 MG TABLET PO PRN (22:12)
[2019-07-10 05:58] VITALS: BP 114/71
[2019-07-10] MEDS: GABAPENTIN 300 MG CAPSULE PO SCH ×4 (08:36→20:04)
[2019-07-10] MEDS: DIAZEPAM 5 MG TABLET PO PRN ×2 (08:36→12:45)
[2019-07-10] MEDS: FOLIC ACID 1 MG TABLET PO SCH (08:37)
[2019-07-10] MEDS: MULTIVITAMINS WITH MINERALS, THERAPEUTIC TABLET PO SCH (08:37)
[2019-07-10] MEDS: TOPIRAMATE 25 MG TABLET PO SCH ×3 (08:37→16:16)
[2019-07-10] MEDS: THIAMINE HCL 100 MG TABLET PO SCH ×2 (08:38→16:16)
[2019-07-10] MEDS: ACAMPROSATE CALCIUM 333 MG DR TABLET PO SCH ×3 (08:38→16:16)
[2019-07-10] MEDS: NALTREXONE HCL 50 MG TABLET PO SCH (08:38)
[2019-07-10 08:56] VITALS: BP 129/81
[2019-07-10 08:58] VITALS: BP 128/81
[2019-07-10 16:30] VITALS: BP 117/84
[2019-07-10] MEDS: MIRTAZAPINE 15 MG TABLET PO SCH (20:04)
[2019-07-10] MEDS: PRAZOSIN HCL 1 MG CAPSULE PO SCH (20:05)
[2019-07-10] MEDS: QUEtiapine FUMARATE 200 MG TABLET PO SCH (20:05)
[2019-07-11 07:56] LABS: ALANINE AMINOTRANSFERASE 228 U/L (12-78); ALBUMIN 3.2 g/dL (3.4-5.0); ALKALINE PHOSPHATASE 74 U/L (46-116); ANION GAP 10 mmol/L (8-16); ASPARTATE AMINOTRANSFERASE 97 U/L (15-37); BILIRUBIN,TOTAL 0.5 mg/dL (0.1-1.0); CALCIUM, TOTAL 8.5 mg/dL (8.8-10.5); CARBON DIOXIDE 23 mmol/L (22-29); CHLORIDE 105 mmol/L (98-107); CREATINE KINASE, TOTAL ONLY 45 U/L (39-308); CREATININE 0.95 mg/dL (0.60-1.30); GLOMERULAR FILTR. RATE CALC > 60 mL/min (>60); GLUCOSE,RANDOM 119 mg/dL (70-110); POTASSIUM 3.9 mmol/L (3.5-5.1); SODIUM SERUM 138 mmol/L (136-145); TOTAL PROTEIN, SERUM 6.5 g/dL (6.4-8.2); UREA NITROGEN, BLOOD 12 mg/dL (7-18)
[2019-07-11 08:00] VITALS: BP 137/88
[2019-07-11] MEDS: ACAMPROSATE CALCIUM 333 MG DR TABLET PO SCH ×3 (09:30→16:16)
[2019-07-11] MEDS: FOLIC ACID 1 MG TABLET PO SCH (09:30)
[2019-07-11] MEDS: THIAMINE HCL 100 MG TABLET PO SCH ×2 (09:31→16:16)
[2019-07-11] MEDS: TOPIRAMATE 25 MG TABLET PO SCH ×3 (09:31→16:16)
[2019-07-11] MEDS: NALTREXONE HCL 50 MG TABLET PO SCH (09:32)
[2019-07-11] MEDS: MULTIVITAMINS WITH MINERALS, THERAPEUTIC TABLET PO SCH (09:34)
[2019-07-11] MEDS: GABAPENTIN 300 MG CAPSULE PO SCH ×4 (09:34→19:59)
[2019-07-11 16:56] VITALS: BP 125/92
[2019-07-11] MEDS: MIRTAZAPINE 15 MG TABLET PO SCH (19:59)
[2019-07-11] MEDS: PRAZOSIN HCL 1 MG CAPSULE PO SCH (19:59)
[2019-07-11] MEDS: QUEtiapine FUMARATE 200 MG TABLET PO SCH (19:59)
[2019-07-12 08:00] VITALS: BP 124/85
[2019-07-12] MEDS: MULTIVITAMINS WITH MINERALS, THERAPEUTIC TABLET PO SCH (08:43)
[2019-07-12] MEDS: GABAPENTIN 300 MG CAPSULE PO SCH ×4 (08:43→20:11)
[2019-07-12] MEDS: TOPIRAMATE 25 MG TABLET PO SCH ×3 (08:44→16:15)
[2019-07-12] MEDS: NALTREXONE HCL 50 MG TABLET PO SCH (08:44)
[2019-07-12] MEDS: FOLIC ACID 1 MG TABLET PO SCH (08:44)
[2019-07-12] MEDS: ACAMPROSATE CALCIUM 333 MG DR TABLET PO SCH ×3 (08:44→16:15)
[2019-07-12] MEDS: THIAMINE HCL 100 MG TABLET PO SCH ×2 (08:45→16:16)
[2019-07-12 19:01] VITALS: BP 116/65
[2019-07-12] MEDS: MIRTAZAPINE 15 MG TABLET PO SCH (20:11)
[2019-07-12] MEDS: QUEtiapine FUMARATE 200 MG TABLET PO SCH (20:11)
[2019-07-12] MEDS: PRAZOSIN HCL 1 MG CAPSULE PO SCH (20:11)
[2019-07-13 08:30] VITALS: BP 123/72
[2019-07-13] MEDS: FOLIC ACID 1 MG TABLET PO SCH (08:40)
[2019-07-13] MEDS: ACAMPROSATE CALCIUM 333 MG DR TABLET PO SCH ×3 (08:40→18:27)
[2019-07-13] MEDS: GABAPENTIN 300 MG CAPSULE PO SCH ×4 (08:40→20:30)
[2019-07-13] MEDS: THIAMINE HCL 100 MG TABLET PO SCH ×2 (08:41→18:28)
[2019-07-13] MEDS: TOPIRAMATE 25 MG TABLET PO SCH ×3 (08:41→18:27)
[2019-07-13] MEDS: NALTREXONE HCL 50 MG TABLET PO SCH (08:41)
[2019-07-13] MEDS: MULTIVITAMINS WITH MINERALS, THERAPEUTIC TABLET PO SCH (08:41)
[2019-07-13] MEDS: MIRTAZAPINE 15 MG TABLET PO SCH (20:30)
[2019-07-13] MEDS: PRAZOSIN HCL 1 MG CAPSULE PO SCH (20:30)
[2019-07-13] MEDS: QUEtiapine FUMARATE 300 MG TABLET PO SCH (20:30)
[2019-07-13 22:45] VITALS: BP 134/94
[2019-07-14 02:18] VITALS: BP 127/92
[2019-07-14] MEDS: GABAPENTIN 300 MG CAPSULE PO SCH ×4 (08:34→20:10)
[2019-07-14] MEDS: MULTIVITAMINS WITH MINERALS, THERAPEUTIC TABLET PO SCH (08:34)
[2019-07-14] MEDS: TOPIRAMATE 25 MG TABLET PO SCH ×3 (08:34→16:28)
[2019-07-14] MEDS: FOLIC ACID 1 MG TABLET PO SCH (08:35)
[2019-07-14] MEDS: THIAMINE HCL 100 MG TABLET PO SCH ×2 (08:35→16:28)
[2019-07-14] MEDS: NALTREXONE HCL 50 MG TABLET PO SCH (08:35)
[2019-07-14] MEDS: ACAMPROSATE CALCIUM 333 MG DR TABLET PO SCH ×3 (08:35→16:29)
[2019-07-14 09:31] VITALS: BP 105/67
[2019-07-14] MEDS ORDERED: TOPI25 PO (16:02)
[2019-07-14] MEDS ORDERED: MIRT15 PO (16:02)
[2019-07-14] MEDS ORDERED: GABA-531 PO (16:02)
[2019-07-14] MEDS ORDERED: NALT50TA PO (16:02)
[2019-07-14] MEDS ORDERED: ACAM333T7 PO (16:02)
[2019-07-14] MEDS ORDERED: QUET300T18 PO (16:02)
[2019-07-14] MEDS ORDERED: PRAZ1 PO (16:02)
[2019-07-14] MEDS: QUEtiapine FUMARATE 300 MG TABLET PO SCH (20:10)
[2019-07-14] MEDS: PRAZOSIN HCL 1 MG CAPSULE PO SCH (20:10)
[2019-07-14] MEDS: MIRTAZAPINE 15 MG TABLET PO SCH (20:10)
[2019-07-14 20:43] VITALS: BP 127/82
[2019-07-15 06:40] LABS: BASOPHILS % (AUTO) 1.3 % (0.0-2.0); EOSINOPHILS % (AUTO) 2.8 % (1.0-6.0); HEMOGLOBIN 17.2 g/dL (13.5-17.5); LYMPHOCYTES # (AUTO) 2.5 K/uL (1.0-4.8); LYMPHOCYTES % (AUTO) 35.4 % (22.0-44.0); MEAN CORPUSCULAR HEMOGLOBIN 33.3 pg (26.0-34.0); MEAN CORPUSCULAR HGB CONC 34.4 G/dL (31.0-37.0); MEAN CORPUSCULAR VOLUME 97 fL (80-100); MONOCYTES # (AUTO) 1.1 K/uL (0.1-1.0); MONOCYTES % (AUTO) 15.3 % (2.0-9.0); NEUTROPHILS # (AUTO) 3.1 K/uL (1.8-7.7); NEUTROPHILS % (AUTO) 45.2 % (40.0-70.0); PLATELET COUNT (AUTO) 171 K/uL (150-450); RED BLOOD CELL COUNT(AUTO) 5.17 MIL/uL (4.50-5.90); RED CELL DISTRIBUTION WIDTH 14.3 % (11.5-14.5)
[2019-07-15 07:01] LABS: ALANINE AMINOTRANSFERASE 181 U/L (12-78); ALBUMIN 3.1 g/dL (3.4-5.0); ALKALINE PHOSPHATASE 75 U/L (46-116); ANION GAP 10 mmol/L (8-16); ASPARTATE AMINOTRANSFERASE 52 U/L (15-37); BILIRUBIN,TOTAL 0.3 mg/dL (0.1-1.0); CALCIUM, TOTAL 8.3 mg/dL (8.8-10.5); CARBON DIOXIDE 22 mmol/L (22-29); CHLORIDE 106 mmol/L (98-107); CREATININE 0.92 mg/dL (0.60-1.30); GLOMERULAR FILTR. RATE CALC > 60 mL/min (>60); GLUCOSE,RANDOM 119 mg/dL (70-110); POTASSIUM 3.8 mmol/L (3.5-5.1); SODIUM SERUM 138 mmol/L (136-145); TOTAL PROTEIN, SERUM 6.5 g/dL (6.4-8.2); UREA NITROGEN, BLOOD 15 mg/dL (7-18)
[2019-07-15] MEDS: GABAPENTIN 300 MG CAPSULE PO SCH ×2 (09:12→12:05)
[2019-07-15] MEDS: MULTIVITAMINS WITH MINERALS, THERAPEUTIC TABLET PO SCH (09:12)
[2019-07-15] MEDS: THIAMINE HCL 100 MG TABLET PO SCH (09:13)
[2019-07-15] MEDS: ACAMPROSATE CALCIUM 333 MG DR TABLET PO SCH ×2 (09:13→12:05)
[2019-07-15] MEDS: TOPIRAMATE 25 MG TABLET PO SCH ×2 (09:13→14:25)
[2019-07-15] MEDS: FOLIC ACID 1 MG TABLET PO SCH (09:14)
[2019-07-15] MEDS: NALTREXONE HCL 50 MG TABLET PO SCH (09:14)
[2019-07-15 11:21] VITALS: BP 117/91
== END 2019-07-15 15:13 | disposition home or self-care (01) | DRG 885 ==
LOC: EMS 17:50 → 3EI 07-06 00:36 → 3EX 07-06 13:02
PROVIDERS: ADMIT Psychiatry & Neurology Psychiatry; ATTEND Psychiatry & Neurology Psychiatry
DX: F25.0 Schizoaffective disorder, bipolar type (principal); R45.851 Suicidal ideations; I10 Essential (primary) hypertension; F10.20 Alcohol dependence, uncomplicated; R88.8 Abnormal findings in other body fluids and substances; F12.90 Cannabis use, unspecified, uncomplicated; E78.5 Hyperlipidemia, unspecified; E66.9 Obesity, unspecified; D75.1 Secondary polycythemia; F17.210 Nicotine dependence, cigarettes, uncomplicated; G47.00 Insomnia, unspecified; J44.9 Chronic obstructive pulmonary disease, unspecified; N40.0 Benign prostatic hyperplasia without lower urinary tract symptoms; Z68.29 Body mass index [BMI] 29.0-29.9, adult; Z81.8 Family history of other mental and behavioral disorders; Z82.49 Family history of ischemic heart disease and other diseases of the circulatory system; Z91.14 Patient's other noncompliance with medication regimen
CPT/HCPCS: 83735; 87081; G0378; G0480; J3420

== ENCOUNTER 2019-09-08 18:52 | Emergency (ER) | payer MEDICARE, MEDICAID, OTHER ==
[~2019-09-08 18:52] MED LIST changes: +ACAM333T7 PO; -FOLI1 PO; -MULT-723 PO; -NALT50TA6 PO; -QUET200T PO; -THIA100T67 PO
== END 2019-09-08 19:00 | disposition left against medical advice (07) ==
LOC: EMS 18:57
DX: R07.9 Chest pain, unspecified (principal); Z53.21 Procedure and treatment not carried out due to patient leaving prior to being seen by health care provider

== ENCOUNTER 2019-10-04 15:01 | Inpatient (IN) | payer MEDICARE, MEDICAID ==
[~2019-10-04] VITALS: Ht 175.3 cm; Wt 87.2 kg
[~2019-10-04 15:01] MED LIST changes: +MIRT-92 PO; -MIRT15 PO
[2019-10-04 20:05] VITALS: BP 112/76
[2019-10-04 21:50] VITALS: BP 128/86
[2019-10-04] MEDS ORDERED: GuaiFENesin/D-METHORPHAN [SUGAR-FREE] 200-20MG/10 ML SYRUP UDCUP PO PRN (22:00)
[2019-10-04] MEDS ORDERED: LORazepam 2 MG TABLET PO PRN (22:00)
[2019-10-04] MEDS ORDERED: LOPERAMIDE HCL 2 MG CAPSULE PO PRN (22:00)
[2019-10-04] MEDS ORDERED: CYANOCOBALAMIN 1,000 MCG/ML VIAL IM ONE (22:00)
[2019-10-04] MEDS ORDERED: HydrOXYzine PAMOATE 50 MG CAPSULE PO PRN (22:00)
[2019-10-05] VITALS (12 sets, daily range): BP systolic 108–139; BP diastolic 66–88
[2019-10-05] MEDS ORDERED: LORazepam 2 MG TABLET PO PRN (07:00)
[2019-10-05] MEDS ORDERED: LORazepam 2 MG TABLET PO SCH (09:00)
[2019-10-05] MEDS: FOLIC ACID 1 MG TABLET PO SCH (09:12)
[2019-10-05] MEDS: MULTIVITAMINS WITH MINERALS, THERAPEUTIC TABLET PO SCH (09:13)
[2019-10-05] MEDS: THIAMINE HCL 100 MG TABLET PO SCH ×2 (09:13→16:35)
[2019-10-05] MEDS ORDERED: CYANOCOBALAMIN 1,000 MCG/ML VIAL ONE ×2 (11:22→17:54)
[2019-10-05] MEDS ORDERED: PROMETHAZINE HCL 25 MG TABLET PO PRN (12:30)
[2019-10-05] MEDS ORDERED: LOPERAMIDE HCL 2 MG CAPSULE PO PRN ×2 (12:30→22:30)
[2019-10-05] MEDS ORDERED: QUEtiapine FUMARATE 100 MG TABLET PO PRN (12:30)
[2019-10-05] MEDS ORDERED: ACETAMINOPHEN 325 MG TABLET PO PRN ×2 (12:30→22:30)
[2019-10-05] MEDS ORDERED: MAG HYDROX/AL HYDROX/SIMETH ES 30 ML SUSPENSION UDCUP PO PRN ×2 (12:30→22:30)
[2019-10-05] MEDS ORDERED: MAGNESIUM HYDROXIDE SUSPENSION 30 ML UDCUP PO PRN ×2 (12:30→22:30)
[2019-10-05] MEDS ORDERED: DIAZEPAM 10 MG TABLET PO PRN (12:30)
[2019-10-05] MEDS: GABAPENTIN 300 MG CAPSULE PO SCH ×3 (12:35→20:29)
[2019-10-05] MEDS: PRAZOSIN HCL 1 MG CAPSULE PO SCH (20:29)
[2019-10-05] MEDS: QUEtiapine FUMARATE 25 MG TABLET PO SCH (20:29)
[2019-10-05] MEDS ORDERED: ONDANSETRON HCL 4 MG TABLET PO PRN (22:30)
[2019-10-05] MEDS ORDERED: IBUPROFEN 600 MG TABLET PO PRN (22:30)
[2019-10-05] MEDS ORDERED: ALBUTEROL SULFATE HFA 90 MCG/PUFF 8 GM INHALER IH PRN (22:30)
[2019-10-05] MEDS ORDERED: BENZOCAINE/MENTHOL LOZENGE MM PRN (22:30)
[2019-10-05] MEDS ORDERED: PETROLATUM,WHITE 28 GM JELLY TP PRN (22:30)
[2019-10-05] MEDS ORDERED: DOCUSATE SODIUM 100 MG CAPSULE PO PRN (22:30)
[2019-10-05] MEDS ORDERED: BACITRACIN 28.4 GM OINTMENT TP PRN (22:30)
[2019-10-05] MEDS ORDERED: CloNIDine HCL 0.1 MG TABLET PO PRN (22:30)
[2019-10-05] MEDS ORDERED: OMEPRAZOLE 20 MG CAPSULE PO PRN (22:30)
[2019-10-06] VITALS (8 sets, daily range): BP systolic 104–127; BP diastolic 65–89
[2019-10-06] MEDS ORDERED: DIAZEPAM 10 MG TABLET PO PRN (07:00)
[2019-10-06] MEDS: FOLIC ACID 1 MG TABLET PO SCH (08:20)
[2019-10-06] MEDS: THIAMINE HCL 100 MG TABLET PO SCH ×2 (08:20→16:38)
[2019-10-06] MEDS: MULTIVITAMINS WITH MINERALS, THERAPEUTIC TABLET PO SCH (08:21)
[2019-10-06] MEDS: GABAPENTIN 300 MG CAPSULE PO SCH ×4 (08:21→20:19)
[2019-10-06] MEDS: DIAZEPAM 10 MG TABLET PO SCH ×4 (08:21→20:19)
[2019-10-06] MEDS: NALTREXONE HCL 50 MG TABLET PO SCH (08:28)
[2019-10-06] MEDS: PRAZOSIN HCL 1 MG CAPSULE PO SCH (20:20)
[2019-10-06] MEDS: QUEtiapine FUMARATE 25 MG TABLET PO SCH (20:20)
[2019-10-07] VITALS (7 sets, daily range): BP systolic 111–131; BP diastolic 73–85
[2019-10-07] MEDS ORDERED: LORazepam 1 MG TABLET PO PRN (07:00)
[2019-10-07 08:16] LABS: BASOPHILS % (AUTO) 1.1 % (0.0-2.0); EOSINOPHILS % (AUTO) 2.4 % (1.0-6.0); HEMATOCRIT 43.4 % (41-53); HEMOGLOBIN 15.3 g/dL (13.5-17.5); LYMPHOCYTES # (AUTO) 1.9 K/uL (1.0-4.8); LYMPHOCYTES % (AUTO) 38.2 % (22.0-44.0); MEAN CORPUSCULAR HEMOGLOBIN 34.5 pg (26.0-34.0); MEAN CORPUSCULAR HGB CONC 35.1 G/dL (31.0-37.0); MEAN CORPUSCULAR VOLUME 98 fL (80-100); MONOCYTES # (AUTO) 0.8 K/uL (0.1-1.0); MONOCYTES % (AUTO) 15.6 % (2.0-9.0); NEUTROPHILS # (AUTO) 2.2 K/uL (1.8-7.7); NEUTROPHILS % (AUTO) 42.7 % (40.0-70.0); PLATELET COUNT (AUTO) 169 K/uL (150-450); RED BLOOD CELL COUNT(AUTO) 4.42 MIL/uL (4.50-5.90); RED CELL DISTRIBUTION WIDTH 14.3 % (11.5-14.5)
[2019-10-07] MEDS: FOLIC ACID 1 MG TABLET PO SCH (08:24)
[2019-10-07] MEDS: THIAMINE HCL 100 MG TABLET PO SCH ×2 (08:25→16:34)
[2019-10-07] MEDS: MULTIVITAMINS WITH MINERALS, THERAPEUTIC TABLET PO SCH (08:25)
[2019-10-07] MEDS: GABAPENTIN 300 MG CAPSULE PO SCH ×4 (08:25→20:33)
[2019-10-07] MEDS: DIAZEPAM 10 MG TABLET PO SCH ×4 (08:25→20:34)
[2019-10-07] MEDS: NALTREXONE HCL 50 MG TABLET PO SCH (08:26)
[2019-10-07 08:28] LABS: ALANINE AMINOTRANSFERASE 201 U/L (12-78); ALBUMIN 3.1 g/dL (3.4-5.0); ALKALINE PHOSPHATASE 68 U/L (46-116); ANION GAP 8 mmol/L (8-16); ASPARTATE AMINOTRANSFERASE 83 U/L (15-37); BILIRUBIN,TOTAL 0.3 mg/dL (0.1-1.0); CALCIUM, TOTAL 8.4 mg/dL (8.8-10.5); CARBON DIOXIDE 25 mmol/L (22-29); CHLORIDE 102 mmol/L (98-107); CHOL/HDL RATIO 3.1 (4.2-7.3); CHOLESTEROL 170 mg/dL (131-200); CREATININE 0.83 mg/dL (0.60-1.30); FREE T4 (FREE THYROXINE) 0.71 ng/dL (0.76-1.46); GLOMERULAR FILTR. RATE CALC > 60 mL/min (>60); GLUCOSE,RANDOM 106 mg/dL (70-110); HDL CHOLESTEROL 55 mg/dL (40-60); LDL CHOL (CALC.) 92 mg/dL (0-130); POTASSIUM 3.9 mmol/L (3.5-5.1); SODIUM SERUM 135 mmol/L (136-145); THYROID STIMULATING HORMONE 2.83 uIU/mL (0.36-3.74); TOTAL PROTEIN, SERUM 6.1 g/dL (6.4-8.2); TRIGLYCERIDES 115 mg/dL (15-150); UREA NITROGEN, BLOOD 8 mg/dL (7-18)
[2019-10-07] MEDS ORDERED: LORazepam 1 MG TABLET PO SCH (09:00)
[2019-10-07] MEDS: QUEtiapine FUMARATE 25 MG TABLET PO SCH (20:33)
[2019-10-07] MEDS: PRAZOSIN HCL 1 MG CAPSULE PO SCH (20:34)
[2019-10-07] MEDS ORDERED: ZOLPIDEM TARTRATE 5 MG TABLET PO PRN (21:15)
[2019-10-07] MEDS ORDERED: ZOLPIDEM TARTRATE 10 MG TABLET PO PRN (21:30)
[2019-10-08] VITALS (7 sets, daily range): BP systolic 101–130; BP diastolic 60–81
[2019-10-08] MEDS ORDERED: LORazepam 1 MG TABLET PO PRN (07:00)
[2019-10-08] MEDS ORDERED: DIAZEPAM 5 MG TABLET PO PRN (07:00)
[2019-10-08] MEDS: GABAPENTIN 300 MG CAPSULE PO SCH ×4 (08:13→20:09)
[2019-10-08] MEDS: PROPRANOLOL HCL 10 MG TABLET PO SCH ×3 (08:13→16:13)
[2019-10-08] MEDS: NALTREXONE HCL 50 MG TABLET PO SCH (08:13)
[2019-10-08] MEDS: MULTIVITAMINS WITH MINERALS, THERAPEUTIC TABLET PO SCH (08:14)
[2019-10-08] MEDS: THIAMINE HCL 100 MG TABLET PO SCH ×2 (08:15→16:12)
[2019-10-08] MEDS: DIAZEPAM 5 MG TABLET PO SCH ×4 (08:16→20:08)
[2019-10-08] MEDS: FOLIC ACID 1 MG TABLET PO SCH (08:16)
[2019-10-08] MEDS: PRAZOSIN HCL 1 MG CAPSULE PO SCH (20:09)
[2019-10-08] MEDS ORDERED: QUEtiapine FUMARATE 100 MG TABLET PO SCH (21:00)
[2019-10-08] MEDS ORDERED: ZOLPIDEM TARTRATE 5 MG TABLET PO SCH (21:00)
[2019-10-09 01:27] VITALS: BP 106/62
[2019-10-09 01:28] VITALS: BP 106/62
[2019-10-09] MEDS ORDERED: DIAZEPAM 5 MG TABLET PO PRN (07:00)
[2019-10-09 08:09] VITALS: BP 130/80
[2019-10-09 08:10] VITALS: BP 130/80
[2019-10-09] MEDS: FOLIC ACID 1 MG TABLET PO SCH (09:50)
[2019-10-09] MEDS: THIAMINE HCL 100 MG TABLET PO SCH ×2 (09:50→17:15)
[2019-10-09] MEDS: PROPRANOLOL HCL 10 MG TABLET PO SCH ×3 (09:50→17:15)
[2019-10-09] MEDS: MULTIVITAMINS WITH MINERALS, THERAPEUTIC TABLET PO SCH (09:50)
[2019-10-09] MEDS: NALTREXONE HCL 50 MG TABLET PO SCH (09:50)
[2019-10-09] MEDS: GABAPENTIN 300 MG CAPSULE PO SCH ×3 (09:50→17:15)
[2019-10-09] MEDS ORDERED: NALT50TA PO (16:26)
[2019-10-09] MEDS ORDERED: GABA-531 PO (16:26)
[2019-10-09] MEDS ORDERED: QUET100T33 PO (16:26)
[2019-10-09] MEDS ORDERED: PRAZ1 PO (16:26)
[2019-10-09] MEDS ORDERED: PROP10TA72 PO (16:26)
[2019-10-09 16:34] VITALS: BP 120/80
[2019-10-09] MEDS ORDERED: QUET100T PO (16:48)
[2019-10-09] MEDS ORDERED: PROP20TA18 PO (16:50)
== END 2019-10-09 18:30 | disposition home or self-care (01) | DRG 885 ==
LOC: B3A 20:37 → B2X 10-05 03:25
PROVIDERS: ADMIT Psychiatry & Neurology Psychiatry; ATTEND Psychiatry & Neurology Psychiatry
DX: F25.9 Schizoaffective disorder, unspecified (principal); R45.851 Suicidal ideations; B19.20 Unspecified viral hepatitis C without hepatic coma; E78.5 Hyperlipidemia, unspecified; F43.10 Post-traumatic stress disorder, unspecified; G47.00 Insomnia, unspecified; I10 Essential (primary) hypertension; R55 Syncope and collapse; J44.9 Chronic obstructive pulmonary disease, unspecified; F10.20 Alcohol dependence, uncomplicated; Z91.14 Patient's other noncompliance with medication regimen
CPT/HCPCS: 84439; 84443; G0480; J3420

== ENCOUNTER 2019-10-05 01:15 | Emergency (ER) | payer MEDICARE, OTHER ==
[~2019-10-05] VITALS: Ht 175.3 cm; Wt 87.3 kg
[2019-10-05 02:35] LABS: BASOPHILS % (AUTO) 1.2 % (0.0-2.0); HEMATOCRIT 44.7 % (41-53); HEMOGLOBIN 15.6 g/dL (13.5-17.5); LYMPHOCYTES # (AUTO) 1.6 K/uL (1.0-4.8); LYMPHOCYTES % (AUTO) 29.9 % (22.0-44.0); MEAN CORPUSCULAR HEMOGLOBIN 33.9 pg (26.0-34.0); MEAN CORPUSCULAR HGB CONC 34.8 G/dL (31.0-37.0); MEAN CORPUSCULAR VOLUME 97 fL (80-100); MONOCYTES # (AUTO) 0.9 K/uL (0.1-1.0); MONOCYTES % (AUTO) 17.3 % (2.0-9.0); NEUTROPHILS # (AUTO) 2.7 K/uL (1.8-7.7); NEUTROPHILS % (AUTO) 50.6 % (40.0-70.0); PLATELET COUNT (AUTO) 179 K/uL (150-450); RED BLOOD CELL COUNT(AUTO) 4.59 MIL/uL (4.50-5.90); RED CELL DISTRIBUTION WIDTH 14.5 % (11.5-14.5)
[2019-10-05 02:45] LABS: ANION GAP 10 mmol/L (8-16); CALCIUM, TOTAL 8.2 mg/dL (8.8-10.5); CARBON DIOXIDE 26 mmol/L (22-29); CHLORIDE 98 mmol/L (98-107); CREATININE 0.75 mg/dL (0.60-1.30); GLOMERULAR FILTR. RATE CALC > 60 mL/min (>60); GLUCOSE,RANDOM 126 mg/dL (70-110); POTASSIUM 4.1 mmol/L (3.5-5.1); SODIUM SERUM 134 mmol/L (136-145); UREA NITROGEN, BLOOD 12 mg/dL (7-18)
[2019-10-05] MEDS ORDERED: QUEtiapine FUMARATE 100 MG TABLET PO ONE (02:45)
[2019-10-05] MEDS ORDERED: CefTRIAXone SODIUM 1 GM/VIAL IM ONE (02:45)
[2019-10-05] MEDS ORDERED: ChlordiazePOXIDE HCL 25 MG CAPSULE PO ONE (02:45)
[2019-10-05 02:50] LABS: ALANINE AMINOTRANSFERASE 260 U/L (12-78); ALBUMIN 3.6 g/dL (3.4-5.0); ALKALINE PHOSPHATASE 85 U/L (46-116); ASPARTATE AMINOTRANSFERASE 135 U/L (15-37); BILIRUBIN,TOTAL 0.6 mg/dL (0.1-1.0); TOTAL PROTEIN, SERUM 6.6 g/dL (6.4-8.2)
[2019-10-05] MEDS ORDERED: AZITHROMYCIN 250 MG TABLET PO ONE (03:00)
[2019-10-05] MEDS ORDERED: LIDOCAINE 1% 10 ML VIAL ONE (03:03)
[2019-10-05 03:27] VITALS: BP 139/77
[2019-10-05] MEDS ORDERED: LIDOCAINE 1% 10 ML VIAL INJ ONE (03:30)
== END 2019-10-05 04:28 | disposition other institution (70) ==
LOC: EMS 01:17
DX: S09.90XA Unspecified injury of head, initial encounter (principal); R79.89 Other specified abnormal findings of blood chemistry; J44.9 Chronic obstructive pulmonary disease, unspecified; I10 Essential (primary) hypertension; F17.210 Nicotine dependence, cigarettes, uncomplicated; Z88.8 Allergy status to other drugs, medicaments and biological substances; X58.XXXA Exposure to other specified factors, initial encounter; Y93.89 Activity, other specified; Y92.89 Other specified places as the place of occurrence of the external cause; Y99.8 Other external cause status
CPT/HCPCS: 36415; 70450; 80053; 85025; 87591; 93005; 96372; 99285; G0480; J0696; J3490

== ENCOUNTER 2019-10-26 15:01 | Inpatient (IN) | payer MEDICARE, MEDICAID ==
[~2019-10-26] VITALS: Ht 175.3 cm; Wt 88.1 kg
[~2019-10-26 15:01] MED LIST changes: -ACAM333T7 PO; -MIRT-92 PO; +PROP10TA72 PO; +PROP20TA18 PO; +QUET100T PO; +QUET100T33 PO; -QUET300T18 PO; -TOPI25 PO
[2019-10-26] MEDS ORDERED: QUET200T PO (15:27)
[2019-10-26] MEDS ORDERED: GABA-529 PO (15:27)
[2019-10-26] MEDS ORDERED: TRAZ150 PO (15:27)
[2019-10-26] MEDS ORDERED: TRAZ-252 PO (16:38)
[2019-10-26] MEDS ORDERED: PROP20TA18 PO (16:38)
[2019-10-26 16:42] LABS: BASOPHILS % (AUTO) 0.6 % (0.0-2.0); EOSINOPHILS % (AUTO) 0.2 % (1.0-6.0); HEMATOCRIT 44.8 % (41-53); HEMOGLOBIN 15.3 g/dL (13.5-17.5); LYMPHOCYTES # (AUTO) 0.7 K/uL (1.0-4.8); LYMPHOCYTES % (AUTO) 8.5 % (22.0-44.0); MEAN CORPUSCULAR HEMOGLOBIN 33.6 pg (26.0-34.0); MEAN CORPUSCULAR HGB CONC 34.2 G/dL (31.0-37.0); MEAN CORPUSCULAR VOLUME 98 fL (80-100); MONOCYTES # (AUTO) 0.5 K/uL (0.1-1.0); MONOCYTES % (AUTO) 6.1 % (2.0-9.0); NEUTROPHILS % (AUTO) 84.6 % (40.0-70.0); PLATELET COUNT (AUTO) 200 K/uL (150-450); RED BLOOD CELL COUNT(AUTO) 4.56 MIL/uL (4.50-5.90); RED CELL DISTRIBUTION WIDTH 14.1 % (11.5-14.5)
[2019-10-26] MEDS ORDERED: ZOLPIDEM TARTRATE 10 MG TABLET PO PRN (16:45)
[2019-10-26 16:50] LABS: ANION GAP 7 mmol/L (8-16); CALCIUM, TOTAL 8.3 mg/dL (8.8-10.5); CARBON DIOXIDE 25 mmol/L (22-29); CHLORIDE 102 mmol/L (98-107); CREATININE 0.95 mg/dL (0.60-1.30); GLOMERULAR FILTR. RATE CALC > 60 mL/min (>60); GLUCOSE,RANDOM 128 mg/dL (70-110); POTASSIUM 3.7 mmol/L (3.5-5.1); SODIUM SERUM 134 mmol/L (136-145); UREA NITROGEN, BLOOD 11 mg/dL (7-18)
[2019-10-26 16:56] LABS: ALANINE AMINOTRANSFERASE 277 U/L (12-78); ALBUMIN 3.3 g/dL (3.4-5.0); ALKALINE PHOSPHATASE 69 U/L (46-116); ASPARTATE AMINOTRANSFERASE 95 U/L (15-37); BILIRUBIN,TOTAL 0.6 mg/dL (0.1-1.0); TOTAL PROTEIN, SERUM 6.3 g/dL (6.4-8.2)
[2019-10-26 17:24] LABS: AMPHET/METH SCREEN,URINE NEGATIVE (NEGATIVE); BARBITURATE SCREEN, URINE POSITIVE (NEGATIVE); BENZODIAZEPINES SCREEN,URINE NEGATIVE (NEGATIVE); CANNABINOID SCREEN,URINE NEGATIVE (NEGATIVE); COCAINE SCREEN,URINE NEGATIVE (NEGATIVE); METHADONE SCREEN, URINE NEGATIVE (NEGATIVE); OPIATE SCREEN,URINE NEGATIVE (NEGATIVE); PHENCYCLIDINE SCREEN,URINE NEGATIVE (NEGATIVE)
[2019-10-26] MEDS: LORazepam 2 MG TABLET PO PRN (20:01)
[2019-10-26] MEDS ORDERED: TraZODone HCL 50 MG TABLET PO SCH (21:00)
[2019-10-26] MEDS ORDERED: QUEtiapine FUMARATE 200 MG TABLET PO SCH (21:00)
[2019-10-26 22:15] VITALS: BP 104/67
[2019-10-27 06:41] VITALS: BP 115/81
[2019-10-27] MEDS ORDERED: ALBUTEROL SULFATE HFA 90 MCG/PUFF 8 GM INHALER IH PRN (08:30)
[2019-10-27] MEDS ORDERED: ACETAMINOPHEN 325 MG TABLET PO PRN ×2 (08:30→14:45)
[2019-10-27] MEDS ORDERED: BENZOCAINE/MENTHOL LOZENGE MM PRN (08:30)
[2019-10-27] MEDS ORDERED: BACITRACIN 28.4 GM OINTMENT TP PRN (08:30)
[2019-10-27] MEDS ORDERED: CloNIDine HCL 0.1 MG TABLET PO PRN (08:30)
[2019-10-27] MEDS ORDERED: IBUPROFEN 600 MG TABLET PO PRN (08:30)
[2019-10-27] MEDS ORDERED: ONDANSETRON HCL 4 MG TABLET PO PRN (08:30)
[2019-10-27] MEDS ORDERED: MAGNESIUM HYDROXIDE SUSPENSION 30 ML UDCUP PO PRN ×2 (08:30→14:45)
[2019-10-27] MEDS ORDERED: MAG HYDROX/AL HYDROX/SIMETH ES 30 ML SUSPENSION UDCUP PO PRN ×2 (08:30→14:45)
[2019-10-27] MEDS ORDERED: LOPERAMIDE HCL 2 MG CAPSULE PO PRN ×2 (08:30→14:45)
[2019-10-27] MEDS ORDERED: PETROLATUM,WHITE 28 GM JELLY TP PRN (08:30)
[2019-10-27 08:31] VITALS: BP 118/79
[2019-10-27 08:41] LABS: CHOL/HDL RATIO 4.4 (4.2-7.3); FREE T4 (FREE THYROXINE) 0.96 ng/dL (0.76-1.46); THYROID STIMULATING HORMONE 1.83 uIU/mL (0.36-3.74)
[2019-10-27] MEDS: OMEPRAZOLE 20 MG CAPSULE PO SCH (09:06)
[2019-10-27] MEDS: DOCUSATE SODIUM 100 MG CAPSULE PO SCH (09:07)
[2019-10-27] MEDS ORDERED: HydrOXYzine PAMOATE 50 MG CAPSULE PO PRN (14:45)
[2019-10-27] MEDS ORDERED: CYANOCOBALAMIN 1,000 MCG/ML VIAL IM ONE (14:45)
[2019-10-27] MEDS ORDERED: GuaiFENesin/D-METHORPHAN [SUGAR-FREE] 200-20MG/10 ML SYRUP UDCUP PO PRN (14:45)
[2019-10-27] MEDS ORDERED: PROMETHAZINE HCL 25 MG TABLET PO PRN (14:45)
[2019-10-27 16:16] VITALS: BP 122/75
[2019-10-27] MEDS: QUEtiapine FUMARATE 25 MG TABLET PO SCH (16:34)
[2019-10-27] MEDS: THIAMINE HCL 100 MG TABLET PO SCH (16:34)
[2019-10-27 20:28] VITALS: BP 127/62
[2019-10-27] MEDS: PRAZOSIN HCL 1 MG CAPSULE PO SCH (20:29)
[2019-10-27] MEDS: QUEtiapine FUMARATE 200 MG TABLET PO SCH (20:30)
[2019-10-28 06:12] VITALS: BP 125/78
[2019-10-28 08:25] VITALS: BP 110/67
[2019-10-28] MEDS: MULTIVITAMINS WITH MINERALS, THERAPEUTIC TABLET PO SCH (08:49)
[2019-10-28] MEDS: DOCUSATE SODIUM 100 MG CAPSULE PO SCH (08:49)
[2019-10-28] MEDS: THIAMINE HCL 100 MG TABLET PO SCH ×2 (08:49→16:28)
[2019-10-28] MEDS: OMEPRAZOLE 20 MG CAPSULE PO SCH (08:49)
[2019-10-28] MEDS: QUEtiapine FUMARATE 25 MG TABLET PO SCH ×3 (08:49→16:28)
[2019-10-28] MEDS: FOLIC ACID 1 MG TABLET PO SCH (08:49)
[2019-10-28] MEDS: LORazepam 2 MG TABLET PO PRN (10:43)
[2019-10-28 16:57] VITALS: BP 114/74
[2019-10-28 20:33] VITALS: BP 112/70
[2019-10-28] MEDS: QUEtiapine FUMARATE 200 MG TABLET PO SCH (20:34)
[2019-10-28] MEDS: PRAZOSIN HCL 1 MG CAPSULE PO SCH (20:34)
[2019-10-28] MEDS: GABAPENTIN 300 MG CAPSULE PO SCH (20:34)
[2019-10-29 01:49] VITALS: BP 113/72
[2019-10-29] MEDS: QUEtiapine FUMARATE 25 MG TABLET PO SCH ×3 (08:25→16:35)
[2019-10-29] MEDS: MULTIVITAMINS WITH MINERALS, THERAPEUTIC TABLET PO SCH (08:25)
[2019-10-29] MEDS: DOCUSATE SODIUM 100 MG CAPSULE PO SCH (08:25)
[2019-10-29] MEDS: GABAPENTIN 300 MG CAPSULE PO SCH ×2 (08:25→13:18)
[2019-10-29] MEDS: THIAMINE HCL 100 MG TABLET PO SCH ×2 (08:25→16:35)
[2019-10-29] MEDS: OMEPRAZOLE 20 MG CAPSULE PO SCH (08:25)
[2019-10-29] MEDS: FOLIC ACID 1 MG TABLET PO SCH (08:26)
[2019-10-29] MEDS: BusPIRone HCL 10 MG TABLET PO SCH ×3 (08:26→16:34)
[2019-10-29 08:42] VITALS: BP 97/69
[2019-10-29 16:15] VITALS: BP 100/69
[2019-10-29] MEDS: GABAPENTIN 400 MG CAPSULE PO SCH ×2 (16:35→20:34)
[2019-10-29 20:34] VITALS: BP 118/65
[2019-10-29] MEDS: PRAZOSIN HCL 1 MG CAPSULE PO SCH (20:34)
[2019-10-29] MEDS: QUEtiapine FUMARATE 200 MG TABLET PO SCH (20:35)
[2019-10-30 00:34] VITALS: BP 125/79
[2019-10-30] MEDS: LORazepam 2 MG TABLET PO PRN (00:42)
[2019-10-30 08:15] VITALS: BP 137/91
[2019-10-30] MEDS: DOCUSATE SODIUM 100 MG CAPSULE PO SCH (08:36)
[2019-10-30] MEDS: OMEPRAZOLE 20 MG CAPSULE PO SCH (08:36)
[2019-10-30] MEDS: QUEtiapine FUMARATE 25 MG TABLET PO SCH ×3 (08:36→16:11)
[2019-10-30] MEDS: BusPIRone HCL 10 MG TABLET PO SCH ×3 (08:36→16:11)
[2019-10-30] MEDS: THIAMINE HCL 100 MG TABLET PO SCH ×2 (08:36→16:12)
[2019-10-30] MEDS: MULTIVITAMINS WITH MINERALS, THERAPEUTIC TABLET PO SCH (08:36)
[2019-10-30] MEDS: FOLIC ACID 1 MG TABLET PO SCH (08:37)
[2019-10-30] MEDS: GABAPENTIN 400 MG CAPSULE PO SCH ×4 (10:12→20:33)
[2019-10-30 16:15] VITALS: BP 108/72
[2019-10-30 20:32] VITALS: BP 112/76
[2019-10-30] MEDS: PRAZOSIN HCL 1 MG CAPSULE PO SCH (20:33)
[2019-10-30] MEDS: QUEtiapine FUMARATE 200 MG TABLET PO SCH (20:33)
[2019-10-31 00:42] VITALS: BP 115/62
[2019-10-31 08:19] VITALS: BP 119/69
[2019-10-31] MEDS: THIAMINE HCL 100 MG TABLET PO SCH ×2 (08:40→18:08)
[2019-10-31] MEDS: MULTIVITAMINS WITH MINERALS, THERAPEUTIC TABLET PO SCH (08:40)
[2019-10-31] MEDS: QUEtiapine FUMARATE 25 MG TABLET PO SCH ×3 (08:40→18:08)
[2019-10-31] MEDS: GABAPENTIN 400 MG CAPSULE PO SCH ×4 (08:40→20:30)
[2019-10-31] MEDS: FOLIC ACID 1 MG TABLET PO SCH (08:40)
[2019-10-31] MEDS: DOCUSATE SODIUM 100 MG CAPSULE PO SCH (08:41)
[2019-10-31] MEDS: BusPIRone HCL 10 MG TABLET PO SCH ×3 (08:41→18:09)
[2019-10-31] MEDS: OMEPRAZOLE 20 MG CAPSULE PO SCH (08:41)
[2019-10-31 16:14] VITALS: BP 115/67
[2019-10-31] MEDS: PRAZOSIN HCL 1 MG CAPSULE PO SCH (20:25)
[2019-10-31] MEDS: QUEtiapine FUMARATE 200 MG TABLET PO SCH (20:31)
[2019-11-01 06:51] VITALS: BP 125/73
[2019-11-01 08:00] VITALS: BP 114/75
[2019-11-01] MEDS: THIAMINE HCL 100 MG TABLET PO SCH ×2 (09:57→17:22)
[2019-11-01] MEDS: OMEPRAZOLE 20 MG CAPSULE PO SCH (09:58)
[2019-11-01] MEDS: BusPIRone HCL 10 MG TABLET PO SCH ×3 (09:58→17:23)
[2019-11-01] MEDS: MULTIVITAMINS WITH MINERALS, THERAPEUTIC TABLET PO SCH (09:58)
[2019-11-01] MEDS: FOLIC ACID 1 MG TABLET PO SCH (09:58)
[2019-11-01] MEDS: GABAPENTIN 400 MG CAPSULE PO SCH ×4 (09:58→21:32)
[2019-11-01] MEDS: QUEtiapine FUMARATE 100 MG TABLET PO PRN (09:58)
[2019-11-01] MEDS: DOCUSATE SODIUM 100 MG CAPSULE PO SCH (09:59)
[2019-11-01] MEDS: QUEtiapine FUMARATE 25 MG TABLET PO SCH ×3 (10:35→17:22)
[2019-11-01 16:15] VITALS: BP 112/83
[2019-11-01] MEDS: PRAZOSIN HCL 1 MG CAPSULE PO SCH (21:32)
[2019-11-01] MEDS: QUEtiapine FUMARATE 200 MG TABLET PO SCH (21:32)
[2019-11-02 04:52] VITALS: BP 116/8
[2019-11-02 08:57] VITALS: BP 123/63
[2019-11-02] MEDS: THIAMINE HCL 100 MG TABLET PO SCH ×2 (09:02→16:38)
[2019-11-02] MEDS: DOCUSATE SODIUM 100 MG CAPSULE PO SCH (09:02)
[2019-11-02] MEDS: FOLIC ACID 1 MG TABLET PO SCH (09:02)
[2019-11-02] MEDS: MULTIVITAMINS WITH MINERALS, THERAPEUTIC TABLET PO SCH (09:02)
[2019-11-02] MEDS: QUEtiapine FUMARATE 100 MG TABLET PO PRN (09:02)
[2019-11-02] MEDS: GABAPENTIN 400 MG CAPSULE PO SCH ×4 (09:02→20:34)
[2019-11-02] MEDS: OMEPRAZOLE 20 MG CAPSULE PO SCH (09:02)
[2019-11-02] MEDS: BusPIRone HCL 10 MG TABLET PO SCH ×3 (09:03→16:38)
[2019-11-02] MEDS: QUEtiapine FUMARATE 25 MG TABLET PO SCH ×3 (09:50→16:38)
[2019-11-02 16:08] VITALS: BP 105/66
[2019-11-02] MEDS: QUEtiapine FUMARATE 200 MG TABLET PO SCH (20:34)
[2019-11-02] MEDS: PRAZOSIN HCL 1 MG CAPSULE PO SCH (20:34)
[2019-11-03 05:59] VITALS: BP 129/78
[2019-11-03 08:33] VITALS: BP 109/68
[2019-11-03] MEDS: BusPIRone HCL 10 MG TABLET PO SCH ×3 (09:00→16:08)
[2019-11-03] MEDS: FOLIC ACID 1 MG TABLET PO SCH (09:48)
[2019-11-03] MEDS: OMEPRAZOLE 20 MG CAPSULE PO SCH (09:48)
[2019-11-03] MEDS: GABAPENTIN 400 MG CAPSULE PO SCH ×4 (09:48→20:08)
[2019-11-03] MEDS: MULTIVITAMINS WITH MINERALS, THERAPEUTIC TABLET PO SCH (09:48)
[2019-11-03] MEDS: DOCUSATE SODIUM 100 MG CAPSULE PO SCH (09:48)
[2019-11-03] MEDS: THIAMINE HCL 100 MG TABLET PO SCH ×2 (09:48→16:08)
[2019-11-03] MEDS: QUEtiapine FUMARATE 25 MG TABLET PO SCH ×3 (09:50→16:08)
[2019-11-03] MEDS ORDERED: BUSP10TA23 PO (16:04)
[2019-11-03] MEDS ORDERED: QUET200T29 PO (16:04)
[2019-11-03] MEDS ORDERED: QUET25TA34 PO (16:04)
[2019-11-03] MEDS ORDERED: GABA-533 PO (16:04)
[2019-11-03] MEDS ORDERED: PRAZ1 PO (16:04)
[2019-11-03 16:21] VITALS: BP 103/64
[2019-11-03] MEDS: QUEtiapine FUMARATE 200 MG TABLET PO SCH (20:08)
[2019-11-03] MEDS: PRAZOSIN HCL 1 MG CAPSULE PO SCH (20:08)
[2019-11-04 01:37] VITALS: BP 108/62
[2019-11-04 08:01] LABS: BASOPHILS % (AUTO) 0.5 % (0.0-2.0); EOSINOPHILS % (AUTO) 2.4 % (1.0-6.0); HEMATOCRIT 46.8 % (41-53); HEMOGLOBIN 15.8 g/dL (13.5-17.5); LYMPHOCYTES # (AUTO) 2.5 K/uL (1.0-4.8); LYMPHOCYTES % (AUTO) 36.3 % (22.0-44.0); MEAN CORPUSCULAR HEMOGLOBIN 33.1 pg (26.0-34.0); MEAN CORPUSCULAR HGB CONC 33.8 G/dL (31.0-37.0); MEAN CORPUSCULAR VOLUME 98 fL (80-100); MONOCYTES # (AUTO) 0.9 K/uL (0.1-1.0); MONOCYTES % (AUTO) 12.4 % (2.0-9.0); NEUTROPHILS # (AUTO) 3.4 K/uL (1.8-7.7); NEUTROPHILS % (AUTO) 48.4 % (40.0-70.0); PLATELET COUNT (AUTO) 221 K/uL (150-450); RED BLOOD CELL COUNT(AUTO) 4.77 MIL/uL (4.50-5.90); RED CELL DISTRIBUTION WIDTH 13.5 % (11.5-14.5)
[2019-11-04 08:12] LABS: ALANINE AMINOTRANSFERASE 196 U/L (12-78); ALBUMIN 3.2 g/dL (3.4-5.0); ALKALINE PHOSPHATASE 59 U/L (46-116); ANION GAP 6 mmol/L (8-16); ASPARTATE AMINOTRANSFERASE 62 U/L (15-37); BILIRUBIN,TOTAL 0.3 mg/dL (0.1-1.0); CALCIUM, TOTAL 8.9 mg/dL (8.8-10.5); CARBON DIOXIDE 29 mmol/L (22-29); CHLORIDE 105 mmol/L (98-107); CREATININE 0.95 mg/dL (0.60-1.30); GLOMERULAR FILTR. RATE CALC > 60 mL/min (>60); GLUCOSE,RANDOM 103 mg/dL (70-110); PHOSPHORUS 3.7 mg/dL (2.5-4.9); POTASSIUM 4.3 mmol/L (3.5-5.1); SODIUM SERUM 140 mmol/L (136-145); UREA NITROGEN, BLOOD 10 mg/dL (7-18)
[2019-11-04 08:20] LABS: HEMOGLOBIN A1C 5.6 % (3.8-5.6)
[2019-11-04] MEDS: OMEPRAZOLE 20 MG CAPSULE PO SCH (08:32)
[2019-11-04] MEDS: THIAMINE HCL 100 MG TABLET PO SCH (08:32)
[2019-11-04] MEDS: MULTIVITAMINS WITH MINERALS, THERAPEUTIC TABLET PO SCH (08:32)
[2019-11-04] MEDS: QUEtiapine FUMARATE 25 MG TABLET PO SCH ×2 (08:32→13:05)
[2019-11-04] MEDS: GABAPENTIN 400 MG CAPSULE PO SCH ×2 (08:32→13:05)
[2019-11-04] MEDS: FOLIC ACID 1 MG TABLET PO SCH (08:32)
[2019-11-04] MEDS: BusPIRone HCL 10 MG TABLET PO SCH ×2 (08:32→13:05)
[2019-11-04] MEDS: DOCUSATE SODIUM 100 MG CAPSULE PO SCH (08:33)
[2019-11-04 08:39] VITALS: BP 121/66
[2019-12-04] MEDS ORDERED: BUSP10TA23 PO (09:11)
[2019-12-04] MEDS ORDERED: CARB100C9 PO (09:12)
[2019-12-04] MEDS ORDERED: ESZO2 PO (09:12)
[2019-12-04] MEDS ORDERED: QUET25TA PO (09:13)
[2019-12-04] MEDS ORDERED: QUET300T2 PO (09:14)
[2019-12-04] MEDS ORDERED: DOCU-275 PO (09:16)
[2019-12-04] MEDS ORDERED: OMEP20 PO (09:17)
[2019-12-04] MEDS ORDERED: PRAZ1 PO (09:18)
[2019-12-04] MEDS ORDERED: GABA-531 PO (09:18)
== END 2019-11-04 13:15 | disposition home or self-care (01) | DRG 885 ==
LOC: EMS 15:08 → B2X 17:17
PROVIDERS: ADMIT Psychiatry & Neurology Psychiatry; ATTEND Psychiatry & Neurology Psychiatry
DX: F25.0 Schizoaffective disorder, bipolar type (principal); B18.2 Chronic viral hepatitis C; R45.851 Suicidal ideations; E78.5 Hyperlipidemia, unspecified; F41.9 Anxiety disorder, unspecified; G47.00 Insomnia, unspecified; I10 Essential (primary) hypertension; F17.210 Nicotine dependence, cigarettes, uncomplicated; J44.9 Chronic obstructive pulmonary disease, unspecified; Z59.0 Homelessness; Z79.899 Other long term (current) drug therapy; Z91.19 Patient's noncompliance with other medical treatment and regimen; Z88.8 Allergy status to other drugs, medicaments and biological substances
CPT/HCPCS: 83036; 83735; 84100; 84439; 84443; 87081; G0480; J3420

== ENCOUNTER 2019-11-09 10:02 | Inpatient (IN) | payer MEDICARE, MEDICAID ==
[2019-11-09] VITALS (8 sets, daily range): BP systolic 107–130; BP diastolic 62–78
[~2019-11-09] VITALS: Ht 175.3 cm; Wt 90.8 kg
[~2019-11-09 10:02] MED LIST changes: +BUSP10TA23 PO; -GABA-531 PO; +GABA-533 PO; -NALT50TA PO; -PROP10TA72 PO; -PROP20TA18 PO; -QUET100T PO; -QUET100T33 PO; +QUET200T29 PO; +QUET25TA34 PO
[2019-11-09 12:03] LABS: BASOPHILS % (AUTO) 0.3 % (0.0-2.0); EOSINOPHILS % (AUTO) 0 % (1.0-6.0); HEMATOCRIT 44.9 % (41-53); HEMOGLOBIN 15.4 g/dL (13.5-17.5); LYMPHOCYTES # (AUTO) 0.9 K/uL (1.0-4.8); LYMPHOCYTES % (AUTO) 9.2 % (22.0-44.0); MEAN CORPUSCULAR HEMOGLOBIN 33.1 pg (26.0-34.0); MEAN CORPUSCULAR HGB CONC 34.2 G/dL (31.0-37.0); MEAN CORPUSCULAR VOLUME 97 fL (80-100); MONOCYTES % (AUTO) 9.9 % (2.0-9.0); NEUTROPHILS % (AUTO) 80.6 % (40.0-70.0); PLATELET COUNT (AUTO) 200 K/uL (150-450); RED BLOOD CELL COUNT(AUTO) 4.65 MIL/uL (4.50-5.90); RED CELL DISTRIBUTION WIDTH 13.3 % (11.5-14.5)
[2019-11-09 12:23] LABS: ANION GAP 13 mmol/L (8-16); CALCIUM, TOTAL 8.9 mg/dL (8.8-10.5); CARBON DIOXIDE 24 mmol/L (22-29); CHLORIDE 95 mmol/L (98-107); CREATININE 0.82 mg/dL (0.60-1.30); GLOMERULAR FILTR. RATE CALC > 60 mL/min (>60); GLUCOSE,RANDOM 92 mg/dL (70-110); POTASSIUM 5.2 mmol/L (3.5-5.1); SODIUM SERUM 132 mmol/L (136-145); UREA NITROGEN, BLOOD 11 mg/dL (7-18)
[2019-11-09] MEDS ORDERED: PRAZ2 PO (12:23)
[2019-11-09] MEDS ORDERED: MAGNESIUM HYDROXIDE SUSPENSION 30 ML UDCUP PO PRN (12:30)
[2019-11-09] MEDS ORDERED: LORazepam 2 MG TABLET PO ONE (12:30)
[2019-11-09] MEDS ORDERED: LOPERAMIDE HCL 2 MG CAPSULE PO PRN (12:30)
[2019-11-09] MEDS ORDERED: ACETAMINOPHEN 325 MG TABLET PO PRN (12:30)
[2019-11-09] MEDS ORDERED: GuaiFENesin/D-METHORPHAN [SUGAR-FREE] 200-20MG/10 ML SYRUP UDCUP PO PRN (12:30)
[2019-11-09] MEDS ORDERED: QUEtiapine FUMARATE 100 MG TABLET PO PRN (12:30)
[2019-11-09] MEDS ORDERED: HydrOXYzine PAMOATE 50 MG CAPSULE PO PRN (12:30)
[2019-11-09] MEDS ORDERED: MAG HYDROX/AL HYDROX/SIMETH ES 30 ML SUSPENSION UDCUP PO PRN (12:30)
[2019-11-09] MEDS ORDERED: ZOLPIDEM TARTRATE 10 MG TABLET PO PRN (12:30)
[2019-11-09] MEDS ORDERED: PROMETHAZINE HCL 25 MG TABLET PO PRN (12:30)
[2019-11-09] MEDS ORDERED: LORazepam 2 MG TABLET PO PRN (12:30)
[2019-11-09 12:36] LABS: LACTIC ACID 3.9 mmol/L (0.4-2.0)
[2019-11-09 12:46] LABS: ALANINE AMINOTRANSFERASE 208 U/L (12-78); ALKALINE PHOSPHATASE 75 U/L (46-116); ASPARTATE AMINOTRANSFERASE 89 U/L (15-37); BILIRUBIN,TOTAL 1.2 mg/dL (0.1-1.0)
[2019-11-09 12:47] LABS: ALBUMIN 3.9 g/dL (3.4-5.0); CREATINE KINASE, TOTAL ONLY 386 U/L (39-308); LIPASE 704 U/L (73-393); TOTAL PROTEIN, SERUM 7.4 g/dL (6.4-8.2)
[2019-11-09] MEDS ORDERED: DIAZEPAM 10 MG TABLET PO PRN (15:00)
[2019-11-09] MEDS: BusPIRone HCL 10 MG TABLET PO SCH (16:52)
[2019-11-09] MEDS: GABAPENTIN 400 MG CAPSULE PO SCH ×2 (16:52→20:30)
[2019-11-09] MEDS: CEPHALEXIN MONOHYDRATE 500 MG CAPSULE PO SCH (16:52)
[2019-11-09] MEDS: QUEtiapine FUMARATE 25 MG TABLET PO SCH (16:52)
[2019-11-09] MEDS: THIAMINE HCL 100 MG TABLET PO SCH (16:52)
[2019-11-09] MEDS: PRAZOSIN HCL 1 MG CAPSULE PO SCH (20:30)
[2019-11-09] MEDS ORDERED: QUEtiapine FUMARATE 200 MG TABLET PO SCH (21:00)
[2019-11-10] VITALS (8 sets, daily range): BP systolic 112–134; BP diastolic 69–91
[2019-11-10] MEDS ORDERED: DIAZEPAM 10 MG TABLET PO PRN (07:00)
[2019-11-10] MEDS: NICOTINE 21 MG/24 HOUR PATCH TD SCH (08:55)
[2019-11-10] MEDS: GABAPENTIN 400 MG CAPSULE PO SCH ×4 (08:56→20:34)
[2019-11-10] MEDS: DIAZEPAM 10 MG TABLET PO SCH ×4 (08:56→20:33)
[2019-11-10] MEDS: FOLIC ACID 1 MG TABLET PO SCH (08:56)
[2019-11-10] MEDS: THIAMINE HCL 100 MG TABLET PO SCH ×2 (08:56→16:06)
[2019-11-10] MEDS: BusPIRone HCL 10 MG TABLET PO SCH ×3 (08:56→16:05)
[2019-11-10] MEDS: QUEtiapine FUMARATE 25 MG TABLET PO SCH ×3 (08:56→16:05)
[2019-11-10] MEDS: MULTIVITAMINS WITH MINERALS, THERAPEUTIC TABLET PO SCH (08:56)
[2019-11-10] MEDS: CEPHALEXIN MONOHYDRATE 500 MG CAPSULE PO SCH ×3 (08:57→16:05)
[2019-11-10] MEDS: NALTREXONE HCL 50 MG TABLET PO SCH (08:57)
[2019-11-10] MEDS: PRAZOSIN HCL 1 MG CAPSULE PO SCH (20:34)
[2019-11-10] MEDS ORDERED: QUEtiapine FUMARATE 200 MG TABLET PO SCH (21:00)
[2019-11-11] VITALS (9 sets, daily range): BP systolic 123–138; BP diastolic 71–88
[2019-11-11] MEDS: DIAZEPAM 10 MG TABLET PO SCH ×4 (08:31→20:17)
[2019-11-11] MEDS: THIAMINE HCL 100 MG TABLET PO SCH ×2 (08:31→16:24)
[2019-11-11] MEDS: GABAPENTIN 400 MG CAPSULE PO SCH ×4 (08:31→20:17)
[2019-11-11] MEDS: FOLIC ACID 1 MG TABLET PO SCH (08:32)
[2019-11-11] MEDS: NALTREXONE HCL 50 MG TABLET PO SCH (08:32)
[2019-11-11] MEDS: MULTIVITAMINS WITH MINERALS, THERAPEUTIC TABLET PO SCH (08:32)
[2019-11-11] MEDS: CEPHALEXIN MONOHYDRATE 500 MG CAPSULE PO SCH ×3 (08:33→16:24)
[2019-11-11] MEDS: BusPIRone HCL 10 MG TABLET PO SCH ×3 (08:34→16:24)
[2019-11-11] MEDS: NICOTINE 21 MG/24 HOUR PATCH TD SCH (08:34)
[2019-11-11] MEDS: QUEtiapine FUMARATE 25 MG TABLET PO SCH ×3 (08:36→16:24)
[2019-11-11] MEDS: PRAZOSIN HCL 1 MG CAPSULE PO SCH (20:17)
[2019-11-11] MEDS: QUEtiapine FUMARATE 200 MG TABLET PO SCH (20:17)
[2019-11-12] VITALS (8 sets, daily range): BP systolic 114–138; BP diastolic 72–90
[2019-11-12] MEDS ORDERED: DIAZEPAM 5 MG TABLET PO PRN (07:00)
[2019-11-12 07:52] LABS: LACTIC ACID 0.6 mmol/L (0.4-2.0)
[2019-11-12 08:00] LABS: ALANINE AMINOTRANSFERASE 232 U/L (12-78); ALKALINE PHOSPHATASE 81 U/L (46-116); ANION GAP 10 mmol/L (8-16); ASPARTATE AMINOTRANSFERASE 128 U/L (15-37); BILIRUBIN,TOTAL 0.3 mg/dL (0.1-1.0); CALCIUM, TOTAL 8.4 mg/dL (8.8-10.5); CARBON DIOXIDE 25 mmol/L (22-29); CHLORIDE 103 mmol/L (98-107); CREATININE 0.74 mg/dL (0.60-1.30); GLOMERULAR FILTR. RATE CALC > 60 mL/min (>60); GLUCOSE,RANDOM 120 mg/dL (70-110); POTASSIUM 3.8 mmol/L (3.5-5.1); SODIUM SERUM 138 mmol/L (136-145); UREA NITROGEN, BLOOD 10 mg/dL (7-18)
[2019-11-12] MEDS: NICOTINE 21 MG/24 HOUR PATCH TD SCH (08:25)
[2019-11-12] MEDS: FOLIC ACID 1 MG TABLET PO SCH (08:26)
[2019-11-12] MEDS: MULTIVITAMINS WITH MINERALS, THERAPEUTIC TABLET PO SCH (08:27)
[2019-11-12] MEDS: GABAPENTIN 400 MG CAPSULE PO SCH ×4 (08:27→20:31)
[2019-11-12] MEDS: THIAMINE HCL 100 MG TABLET PO SCH ×2 (08:27→16:29)
[2019-11-12] MEDS: QUEtiapine FUMARATE 25 MG TABLET PO SCH ×3 (08:27→16:29)
[2019-11-12] MEDS: CEPHALEXIN MONOHYDRATE 500 MG CAPSULE PO SCH ×3 (08:27→16:29)
[2019-11-12] MEDS: NALTREXONE HCL 50 MG TABLET PO SCH (08:27)
[2019-11-12] MEDS: BusPIRone HCL 10 MG TABLET PO SCH ×3 (08:28→16:29)
[2019-11-12] MEDS: DIAZEPAM 5 MG TABLET PO SCH ×4 (08:32→20:31)
[2019-11-12] MEDS: IBUPROFEN 600 MG TABLET PO PRN (18:51)
[2019-11-12] MEDS: QUEtiapine FUMARATE 200 MG TABLET PO SCH (20:31)
[2019-11-12] MEDS: PRAZOSIN HCL 1 MG CAPSULE PO SCH (20:31)
[2019-11-13] VITALS (8 sets, daily range): BP systolic 109–138; BP diastolic 72–89
[2019-11-13] MEDS ORDERED: DIAZEPAM 5 MG TABLET PO PRN (07:00)
[2019-11-13] MEDS: NALTREXONE HCL 50 MG TABLET PO SCH (09:18)
[2019-11-13] MEDS: CEPHALEXIN MONOHYDRATE 500 MG CAPSULE PO SCH ×3 (09:18→16:04)
[2019-11-13] MEDS: NICOTINE 21 MG/24 HOUR PATCH TD SCH (09:18)
[2019-11-13] MEDS: MULTIVITAMINS WITH MINERALS, THERAPEUTIC TABLET PO SCH (09:18)
[2019-11-13] MEDS: QUEtiapine FUMARATE 25 MG TABLET PO SCH ×3 (09:18→16:04)
[2019-11-13] MEDS: GABAPENTIN 400 MG CAPSULE PO SCH ×4 (09:18→20:44)
[2019-11-13] MEDS: FOLIC ACID 1 MG TABLET PO SCH (09:18)
[2019-11-13] MEDS: THIAMINE HCL 100 MG TABLET PO SCH ×2 (09:18→16:04)
[2019-11-13] MEDS: BusPIRone HCL 10 MG TABLET PO SCH ×3 (09:18→16:04)
[2019-11-13] MEDS: IBUPROFEN 600 MG TABLET PO PRN ×2 (09:59→19:10)
[2019-11-13] MEDS: PRAZOSIN HCL 1 MG CAPSULE PO SCH (20:44)
[2019-11-13] MEDS: QUEtiapine FUMARATE 300 MG TABLET PO SCH (20:44)
[2019-11-14 00:34] VITALS: BP 138/84
[2019-11-14 07:54] LABS: CHOL/HDL RATIO 3.6 (4.2-7.3)
[2019-11-14 08:45] VITALS: BP 124/90
[2019-11-14] MEDS: QUEtiapine FUMARATE 25 MG TABLET PO SCH ×3 (08:45→16:09)
[2019-11-14] MEDS: NALTREXONE HCL 50 MG TABLET PO SCH (08:46)
[2019-11-14] MEDS: GABAPENTIN 400 MG CAPSULE PO SCH ×4 (08:46→20:06)
[2019-11-14] MEDS: FOLIC ACID 1 MG TABLET PO SCH (08:46)
[2019-11-14] MEDS: NICOTINE 21 MG/24 HOUR PATCH TD SCH (08:46)
[2019-11-14] MEDS: MULTIVITAMINS WITH MINERALS, THERAPEUTIC TABLET PO SCH (08:46)
[2019-11-14] MEDS: BusPIRone HCL 10 MG TABLET PO SCH ×3 (08:46→16:10)
[2019-11-14] MEDS: THIAMINE HCL 100 MG TABLET PO SCH ×2 (08:46→16:10)
[2019-11-14] MEDS: CEPHALEXIN MONOHYDRATE 500 MG CAPSULE PO SCH ×3 (08:46→16:10)
[2019-11-14 16:04] VITALS: BP 122/81
[2019-11-14] MEDS: QUEtiapine FUMARATE 300 MG TABLET PO SCH (20:06)
[2019-11-14] MEDS: PRAZOSIN HCL 1 MG CAPSULE PO SCH (20:07)
[2019-11-15 06:29] VITALS: BP 130/72
[2019-11-15 08:11] VITALS: BP 108/70
[2019-11-15] MEDS: FOLIC ACID 1 MG TABLET PO SCH (09:06)
[2019-11-15] MEDS: MULTIVITAMINS WITH MINERALS, THERAPEUTIC TABLET PO SCH (09:06)
[2019-11-15] MEDS: GABAPENTIN 400 MG CAPSULE PO SCH ×4 (09:06→20:37)
[2019-11-15] MEDS: NICOTINE 21 MG/24 HOUR PATCH TD SCH (09:06)
[2019-11-15] MEDS: QUEtiapine FUMARATE 25 MG TABLET PO SCH ×3 (09:06→16:07)
[2019-11-15] MEDS: THIAMINE HCL 100 MG TABLET PO SCH ×2 (09:06→16:07)
[2019-11-15] MEDS: NALTREXONE HCL 50 MG TABLET PO SCH (09:07)
[2019-11-15] MEDS: CEPHALEXIN MONOHYDRATE 500 MG CAPSULE PO SCH ×3 (09:07→16:07)
[2019-11-15] MEDS: BusPIRone HCL 10 MG TABLET PO SCH ×3 (09:07→16:08)
[2019-11-15 16:05] VITALS: BP 117/79
[2019-11-15] MEDS: PRAZOSIN HCL 1 MG CAPSULE PO SCH (20:37)
[2019-11-15] MEDS: QUEtiapine FUMARATE 300 MG TABLET PO SCH (20:37)
[2019-11-16 06:05] VITALS: BP 134/88
[2019-11-16 08:30] VITALS: BP 132/82
[2019-11-16] MEDS: NICOTINE 21 MG/24 HOUR PATCH TD SCH (09:00)
[2019-11-16] MEDS: THIAMINE HCL 100 MG TABLET PO SCH ×2 (09:28→16:26)
[2019-11-16] MEDS: BusPIRone HCL 10 MG TABLET PO SCH ×3 (09:28→16:25)
[2019-11-16] MEDS: MULTIVITAMINS WITH MINERALS, THERAPEUTIC TABLET PO SCH (09:28)
[2019-11-16] MEDS: QUEtiapine FUMARATE 25 MG TABLET PO SCH ×3 (09:28→16:25)
[2019-11-16] MEDS: CEPHALEXIN MONOHYDRATE 500 MG CAPSULE PO SCH ×3 (09:28→16:25)
[2019-11-16] MEDS: FOLIC ACID 1 MG TABLET PO SCH (09:28)
[2019-11-16] MEDS: NALTREXONE HCL 50 MG TABLET PO SCH (09:28)
[2019-11-16] MEDS: GABAPENTIN 400 MG CAPSULE PO SCH ×4 (09:28→20:28)
[2019-11-16] MEDS: IBUPROFEN 600 MG TABLET PO PRN (14:16)
[2019-11-16 16:41] VITALS: BP 124/79
[2019-11-16 20:16] VITALS: BP 121/82
[2019-11-16] MEDS: QUEtiapine FUMARATE 200 MG TABLET PO SCH (20:28)
[2019-11-16] MEDS: PRAZOSIN HCL 1 MG CAPSULE PO SCH (20:28)
[2019-11-17 01:04] VITALS: BP 108/66
[2019-11-17 08:16] VITALS: BP 141/84
[2019-11-17] MEDS: BusPIRone HCL 10 MG TABLET PO SCH ×3 (08:42→16:34)
[2019-11-17] MEDS: GABAPENTIN 400 MG CAPSULE PO SCH ×2 (08:42→12:30)
[2019-11-17] MEDS: QUEtiapine FUMARATE 25 MG TABLET PO SCH ×3 (08:42→16:34)
[2019-11-17] MEDS: THIAMINE HCL 100 MG TABLET PO SCH ×2 (08:42→16:34)
[2019-11-17] MEDS: NICOTINE 21 MG/24 HOUR PATCH TD SCH (08:42)
[2019-11-17] MEDS: MULTIVITAMINS WITH MINERALS, THERAPEUTIC TABLET PO SCH (08:43)
[2019-11-17] MEDS: FOLIC ACID 1 MG TABLET PO SCH (08:43)
[2019-11-17] MEDS: NALTREXONE HCL 50 MG TABLET PO SCH (08:43)
[2019-11-17] MEDS: GABAPENTIN 300 MG CAPSULE PO SCH ×2 (16:34→20:19)
[2019-11-17 17:33] VITALS: BP 113/72
[2019-11-17] MEDS: IBUPROFEN 600 MG TABLET PO PRN (18:48)
[2019-11-17] MEDS: QUEtiapine FUMARATE 200 MG TABLET PO SCH (20:19)
[2019-11-17] MEDS: PRAZOSIN HCL 1 MG CAPSULE PO SCH (20:19)
[2019-11-18 01:55] VITALS: BP 115/84
[2019-11-18 08:09] VITALS: BP 107/66
[2019-11-18] MEDS: BusPIRone HCL 10 MG TABLET PO SCH ×3 (09:03→16:27)
[2019-11-18] MEDS: NALTREXONE HCL 50 MG TABLET PO SCH (09:03)
[2019-11-18] MEDS: NICOTINE 21 MG/24 HOUR PATCH TD SCH (09:03)
[2019-11-18] MEDS: MULTIVITAMINS WITH MINERALS, THERAPEUTIC TABLET PO SCH (09:03)
[2019-11-18] MEDS: GABAPENTIN 300 MG CAPSULE PO SCH ×3 (09:03→16:27)
[2019-11-18] MEDS: FOLIC ACID 1 MG TABLET PO SCH (09:03)
[2019-11-18] MEDS: THIAMINE HCL 100 MG TABLET PO SCH ×2 (09:03→16:27)
[2019-11-18] MEDS: QUEtiapine FUMARATE 25 MG TABLET PO SCH ×3 (09:03→16:27)
[2019-11-18 16:08] VITALS: BP 109/69
[2019-11-18] MEDS ORDERED: NALT50TA PO (16:59)
[2019-11-18] MEDS ORDERED: BUSP10TA23 PO (16:59)
[2019-11-18] MEDS ORDERED: QUET25TA34 PO (16:59)
[2019-11-18] MEDS ORDERED: GABA-531 PO (16:59)
[2019-11-18] MEDS ORDERED: QUET200T29 PO (16:59)
[2019-11-18] MEDS ORDERED: PRAZ1 PO (16:59)
[2019-12-04] MEDS ORDERED: BUSP10TA23 PO (09:11)
[2019-12-04] MEDS ORDERED: CARB100C9 PO (09:12)
[2019-12-04] MEDS ORDERED: ESZO2 PO (09:12)
[2019-12-04] MEDS ORDERED: QUET25TA PO (09:13)
[2019-12-04] MEDS ORDERED: QUET300T2 PO (09:14)
[2019-12-04] MEDS ORDERED: DOCU-275 PO (09:16)
[2019-12-04] MEDS ORDERED: OMEP20 PO (09:17)
[2019-12-04] MEDS ORDERED: PRAZ1 PO (09:18)
[2019-12-04] MEDS ORDERED: GABA-531 PO (09:18)
== END 2019-11-18 18:35 | disposition home or self-care (01) | DRG 885 ==
LOC: EMS 10:05 → B2X 12:30
PROVIDERS: ADMIT Psychiatry & Neurology Psychiatry; ATTEND Psychiatry & Neurology Psychiatry
DX: F25.1 Schizoaffective disorder, depressive type (principal); B19.20 Unspecified viral hepatitis C without hepatic coma; E87.1 Hypo-osmolality and hyponatremia; R45.851 Suicidal ideations; E66.9 Obesity, unspecified; E78.00 Pure hypercholesterolemia, unspecified; E78.5 Hyperlipidemia, unspecified; F10.10 Alcohol abuse, uncomplicated; F17.210 Nicotine dependence, cigarettes, uncomplicated; F41.9 Anxiety disorder, unspecified; G47.00 Insomnia, unspecified; I10 Essential (primary) hypertension; J44.9 Chronic obstructive pulmonary disease, unspecified; L30.9 Dermatitis, unspecified; Z68.29 Body mass index [BMI] 29.0-29.9, adult; Z91.19 Patient's noncompliance with other medical treatment and regimen
CPT/HCPCS: 71111; 83605; 83735; 87081; 93005; G0480

== ENCOUNTER 2019-12-11 12:52 | Emergency (ER) | payer MEDICARE, OTHER ==
[~2019-12-11] VITALS: Ht 175.3 cm; Wt 81.3 kg
[~2019-12-11 12:52] MED LIST changes: +CARB100C9 PO; +DOCU-275 PO; +ESZO2 PO; +GABA-531 PO; -GABA-533 PO; +NALT50TA PO; +OMEP20 PO; -QUET200T29 PO; +QUET25TA PO; -QUET25TA34 PO; +QUET300T2 PO
[2019-12-11 15:00] LABS: BASOPHILS % (AUTO) 0.4 % (0.0-2.0); EOSINOPHILS % (AUTO) 0.1 % (1.0-6.0); HEMATOCRIT 47.5 % (41-53); HEMOGLOBIN 16.1 g/dL (13.5-17.5); LYMPHOCYTES # (AUTO) 3.6 K/uL (1.0-4.8); LYMPHOCYTES % (AUTO) 46.1 % (22.0-44.0); MEAN CORPUSCULAR HEMOGLOBIN 32.7 pg (26.0-34.0); MEAN CORPUSCULAR HGB CONC 33.8 G/dL (31.0-37.0); MEAN CORPUSCULAR VOLUME 97 fL (80-100); MONOCYTES # (AUTO) 0.6 K/uL (0.1-1.0); NEUTROPHILS # (AUTO) 3.6 K/uL (1.8-7.7); NEUTROPHILS % (AUTO) 45.4 % (40.0-70.0); PLATELET COUNT (AUTO) 182 K/uL (150-450); RED BLOOD CELL COUNT(AUTO) 4.91 MIL/uL (4.50-5.90)
[2019-12-11 15:24] LABS: ANION GAP 15 mmol/L (8-16); CALCIUM, TOTAL 8.1 mg/dL (8.8-10.5); CARBON DIOXIDE 21 mmol/L (22-29); CHLORIDE 102 mmol/L (98-107); CREATININE 0.81 mg/dL (0.60-1.30); GLOMERULAR FILTR. RATE CALC > 60 mL/min (>60); GLUCOSE,RANDOM 96 mg/dL (70-110); POTASSIUM 3.5 mmol/L (3.5-5.1); SODIUM SERUM 138 mmol/L (136-145); UREA NITROGEN, BLOOD 10 mg/dL (7-18)
[2019-12-11 15:31] LABS: ALANINE AMINOTRANSFERASE 200 U/L (12-78); ALKALINE PHOSPHATASE 86 U/L (46-116); ASPARTATE AMINOTRANSFERASE 85 U/L (15-37); BILIRUBIN,TOTAL 0.2 mg/dL (0.1-1.0); TOTAL PROTEIN, SERUM 7.1 g/dL (6.4-8.2)
[2019-12-11 15:51] LABS: AMPHET/METH SCREEN,URINE NEGATIVE (NEGATIVE); BARBITURATE SCREEN, URINE NEGATIVE (NEGATIVE); BENZODIAZEPINES SCREEN,URINE NEGATIVE (NEGATIVE); CANNABINOID SCREEN,URINE NEGATIVE (NEGATIVE); COCAINE SCREEN,URINE NEGATIVE (NEGATIVE); METHADONE SCREEN, URINE NEGATIVE (NEGATIVE); OPIATE SCREEN,URINE NEGATIVE (NEGATIVE)
[2019-12-11 15:52] LABS: PHENCYCLIDINE SCREEN,URINE NEGATIVE (NEGATIVE)
[2019-12-11 16:09] VITALS: BP 124/80
== END 2019-12-11 16:21 | disposition home or self-care (01) ==
LOC: EMS 12:54
DX: F10.229 Alcohol dependence with intoxication, unspecified (principal); R74.0 Nonspecific elevation of levels of transaminase and lactic acid dehydrogenase [LDH]; I10 Essential (primary) hypertension; J44.9 Chronic obstructive pulmonary disease, unspecified; F17.210 Nicotine dependence, cigarettes, uncomplicated; Z88.8 Allergy status to other drugs, medicaments and biological substances; Z79.899 Other long term (current) drug therapy; Y90.8 Blood alcohol level of 240 mg/100 ml or more
CPT/HCPCS: 36415; 80053; 80307; 85025; 99283; G0480

== ENCOUNTER 2019-12-13 09:27 | Emergency (ER) | payer MEDICARE, OTHER | END 2019-12-13 11:44 | disposition left against medical advice (07) | LOC: EMS 09:38 | DX: R45.851 Suicidal ideations (principal); Z53.21 Procedure and treatment not carried out due to patient leaving prior to being seen by health care provider ==

== ENCOUNTER 2019-12-13 10:28 | Emergency (ER) | payer MEDICARE, OTHER | END 2019-12-13 10:40 | disposition left against medical advice (07) | LOC: EMS 10:31 | DX: R10.32 Left lower quadrant pain (principal); Z53.21 Procedure and treatment not carried out due to patient leaving prior to being seen by health care provider ==

== ENCOUNTER 2019-12-15 16:27 | Emergency (ER) | payer MEDICARE, OTHER ==
[~2019-12-15] VITALS: Ht 175.3 cm; Wt 90.9 kg
[2019-12-15] MEDS ORDERED: LORazepam 2 MG TABLET PO ONE (17:30)
[2019-12-15] MEDS ORDERED: CARB200T6 PO (17:31)
[2019-12-15 18:12] LABS: BASOPHILS % (AUTO) 0.4 % (0.0-2.0); EOSINOPHILS % (AUTO) 0.1 % (1.0-6.0); HEMATOCRIT 44.6 % (41-53); HEMOGLOBIN 15.1 g/dL (13.5-17.5); LYMPHOCYTES # (AUTO) 1.9 K/uL (1.0-4.8); LYMPHOCYTES % (AUTO) 21.2 % (22.0-44.0); MEAN CORPUSCULAR HEMOGLOBIN 32.3 pg (26.0-34.0); MEAN CORPUSCULAR HGB CONC 33.9 G/dL (31.0-37.0); MEAN CORPUSCULAR VOLUME 95 fL (80-100); MONOCYTES # (AUTO) 0.9 K/uL (0.1-1.0); MONOCYTES % (AUTO) 10.2 % (2.0-9.0); NEUTROPHILS # (AUTO) 6.2 K/uL (1.8-7.7); NEUTROPHILS % (AUTO) 68.1 % (40.0-70.0); PLATELET COUNT (AUTO) 155 K/uL (150-450); RED BLOOD CELL COUNT(AUTO) 4.67 MIL/uL (4.50-5.90); RED CELL DISTRIBUTION WIDTH 12.7 % (11.5-14.5)
[2019-12-15 18:21] LABS: ANION GAP 8 mmol/L (8-16); CALCIUM, TOTAL 8.9 mg/dL (8.8-10.5); CARBON DIOXIDE 29 mmol/L (22-29); CHLORIDE 97 mmol/L (98-107); CREATININE 1.05 mg/dL (0.60-1.30); GLOMERULAR FILTR. RATE CALC > 60 mL/min (>60); GLUCOSE,RANDOM 92 mg/dL (70-110); POTASSIUM 3.6 mmol/L (3.5-5.1); SODIUM SERUM 134 mmol/L (136-145); UREA NITROGEN, BLOOD 10 mg/dL (7-18)
[2019-12-15 18:27] LABS: ALANINE AMINOTRANSFERASE 125 U/L (12-78); ALBUMIN 3.7 g/dL (3.4-5.0); ALKALINE PHOSPHATASE 88 U/L (46-116); ASPARTATE AMINOTRANSFERASE 57 U/L (15-37); BILIRUBIN,TOTAL 0.9 mg/dL (0.1-1.0)
[2019-12-15 19:11] LABS: AMPHET/METH SCREEN,URINE POSITIVE (NEGATIVE); BARBITURATE SCREEN, URINE NEGATIVE (NEGATIVE); BENZODIAZEPINES SCREEN,URINE NEGATIVE (NEGATIVE); CANNABINOID SCREEN,URINE NEGATIVE (NEGATIVE); COCAINE SCREEN,URINE NEGATIVE (NEGATIVE); METHADONE SCREEN, URINE NEGATIVE (NEGATIVE)
[2019-12-15 19:12] LABS: PHENCYCLIDINE SCREEN,URINE NEGATIVE (NEGATIVE)
[2019-12-15 19:14] VITALS: BP 132/87
[2019-12-15 19:20] LABS: OPIATE SCREEN,URINE NEGATIVE (NEGATIVE)
== END 2019-12-15 21:08 | disposition home or self-care (01) ==
LOC: EMS 16:33
DX: F41.9 Anxiety disorder, unspecified (principal); F15.10 Other stimulant abuse, uncomplicated; I10 Essential (primary) hypertension; E78.00 Pure hypercholesterolemia, unspecified; J44.9 Chronic obstructive pulmonary disease, unspecified; F17.210 Nicotine dependence, cigarettes, uncomplicated; Z88.8 Allergy status to other drugs, medicaments and biological substances; Z79.899 Other long term (current) drug therapy
CPT/HCPCS: 36415; 71045; 80053; 80307; 84484; 85025; 93005; 99285; 99406; G0480

== ENCOUNTER 2019-12-23 16:44 | Inpatient (IN) | payer MEDICARE, MEDICAID ==
[~2019-12-23] VITALS: Ht 175.3 cm; Wt 86.5 kg
[2019-12-23] VITALS (8 sets, daily range): BP systolic 99–136; BP diastolic 64–89
[~2019-12-23 16:44] MED LIST changes: -CARB100C9 PO; +CARB200T6 PO
[2019-12-23] MEDS ORDERED: LORazepam 1 MG TABLET PO PRN (17:30)
[2019-12-23] MEDS ORDERED: ZOLPIDEM TARTRATE 10 MG TABLET PO PRN (17:30)
[2019-12-23] MEDS ORDERED: ChlorproMAZINE HCL 100 MG TABLET PO PRN (17:30)
[2019-12-23] MEDS ORDERED: MAGNESIUM HYDROXIDE SUSPENSION 30 ML UDCUP PO PRN (19:00)
[2019-12-23] MEDS ORDERED: HydrOXYzine PAMOATE 50 MG CAPSULE PO PRN (19:00)
[2019-12-23] MEDS ORDERED: QUEtiapine FUMARATE 200 MG TABLET PO PRN (19:00)
[2019-12-23] MEDS ORDERED: DIAZEPAM 10 MG TABLET PO PRN (19:00)
[2019-12-23] MEDS ORDERED: CYANOCOBALAMIN 1,000 MCG/ML VIAL IM ONE (19:00)
[2019-12-23] MEDS ORDERED: PROMETHAZINE HCL 25 MG TABLET PO PRN (19:00)
[2019-12-23] MEDS ORDERED: MAG HYDROX/AL HYDROX/SIMETH ES 30 ML SUSPENSION UDCUP PO PRN (19:00)
[2019-12-23] MEDS ORDERED: QUEtiapine FUMARATE 100 MG TABLET PO PRN (19:00)
[2019-12-23] MEDS ORDERED: LOPERAMIDE HCL 2 MG CAPSULE PO PRN ×2 (19:00)
[2019-12-23] MEDS ORDERED: GuaiFENesin/D-METHORPHAN [SUGAR-FREE] 200-20MG/10 ML SYRUP UDCUP PO PRN (19:00)
[2019-12-23] MEDS ORDERED: ACETAMINOPHEN 325 MG TABLET PO PRN (19:00)
[2019-12-23] MEDS ORDERED: BENZOCAINE/MENTHOL LOZENGE MM PRN (20:45)
[2019-12-23] MEDS ORDERED: BACITRACIN 28.4 GM OINTMENT TP PRN (20:45)
[2019-12-23] MEDS ORDERED: CloNIDine HCL 0.1 MG TABLET PO PRN (20:45)
[2019-12-23] MEDS ORDERED: IBUPROFEN 600 MG TABLET PO PRN (20:45)
[2019-12-23] MEDS ORDERED: ONDANSETRON HCL 4 MG TABLET PO PRN (20:45)
[2019-12-23] MEDS ORDERED: PETROLATUM,WHITE 28 GM JELLY TP PRN (20:45)
[2019-12-23] MEDS ORDERED: ALBUTEROL SULFATE HFA 90 MCG/PUFF 8 GM INHALER IH PRN (20:45)
[2019-12-23] MEDS ORDERED: QUEtiapine FUMARATE 200 MG TABLET PO SCH (21:00)
[2019-12-23] MEDS: GABAPENTIN 300 MG CAPSULE PO SCH (21:20)
[2019-12-23] MEDS: PRAZOSIN HCL 1 MG CAPSULE PO SCH (21:20)
[2019-12-23] MEDS: ESZOPICLONE 3 MG TABLET PO SCH (21:20)
[2019-12-24] VITALS (8 sets, daily range): BP systolic 115–130; BP diastolic 56–86
[2019-12-24] MEDS ORDERED: DIAZEPAM 10 MG TABLET PO PRN (07:00)
[2019-12-24 08:14] LABS: BASOPHILS % (AUTO) 0.3 % (0.0-2.0); EOSINOPHILS % (AUTO) 0.7 % (1.0-6.0); HEMATOCRIT 44.2 % (41-53); HEMOGLOBIN 15.1 g/dL (13.5-17.5); LYMPHOCYTES % (AUTO) 22.8 % (22.0-44.0); MEAN CORPUSCULAR HEMOGLOBIN 32.5 pg (26.0-34.0); MEAN CORPUSCULAR HGB CONC 34.1 G/dL (31.0-37.0); MEAN CORPUSCULAR VOLUME 95 fL (80-100); MONOCYTES # (AUTO) 1.6 K/uL (0.1-1.0); MONOCYTES % (AUTO) 18.3 % (2.0-9.0); NEUTROPHILS % (AUTO) 57.9 % (40.0-70.0); PLATELET COUNT (AUTO) 192 K/uL (150-450); RED BLOOD CELL COUNT(AUTO) 4.64 MIL/uL (4.50-5.90); RED CELL DISTRIBUTION WIDTH 12.8 % (11.5-14.5)
[2019-12-24 08:27] LABS: HEMOGLOBIN A1C 5.3 % (3.8-5.6)
[2019-12-24] MEDS: BusPIRone HCL 5 MG TABLET PO SCH ×3 (08:37→16:21)
[2019-12-24] MEDS: DIAZEPAM 10 MG TABLET PO SCH ×4 (08:37→21:36)
[2019-12-24] MEDS: MULTIVITAMINS WITH MINERALS, THERAPEUTIC TABLET PO SCH (08:37)
[2019-12-24] MEDS: THIAMINE HCL 100 MG TABLET PO SCH ×2 (08:37→16:22)
[2019-12-24] MEDS: GABAPENTIN 300 MG CAPSULE PO SCH ×4 (08:38→21:36)
[2019-12-24] MEDS: CarBAMazepine 200 MG TABLET PO SCH ×2 (08:38→16:38)
[2019-12-24] MEDS: NALTREXONE HCL 50 MG TABLET PO SCH (08:38)
[2019-12-24] MEDS: NICOTINE 21 MG/24 HOUR PATCH TD SCH (08:43)
[2019-12-24 08:49] LABS: ALANINE AMINOTRANSFERASE 162 U/L (12-78); ALBUMIN 3.1 g/dL (3.4-5.0); ALKALINE PHOSPHATASE 79 U/L (46-116); ANION GAP 6 mmol/L (8-16); ASPARTATE AMINOTRANSFERASE 58 U/L (15-37); BILIRUBIN,TOTAL 0.5 mg/dL (0.1-1.0); CALCIUM, TOTAL 8.3 mg/dL (8.8-10.5); CARBON DIOXIDE 29 mmol/L (22-29); CHLORIDE 104 mmol/L (98-107); CHOL/HDL RATIO 3.6 (4.2-7.3); CHOLESTEROL 129 mg/dL (131-200); CREATININE 0.93 mg/dL (0.60-1.30); FREE T4 (FREE THYROXINE) 0.84 ng/dL (0.76-1.46); GLOMERULAR FILTR. RATE CALC > 60 mL/min (>60); GLUCOSE,RANDOM 118 mg/dL (70-110); HDL CHOLESTEROL 36 mg/dL (40-60); LDL CHOL (CALC.) 72 mg/dL (0-130); POTASSIUM 3.6 mmol/L (3.5-5.1); SODIUM SERUM 139 mmol/L (136-145); THYROID STIMULATING HORMONE 1.07 uIU/mL (0.36-3.74); TOTAL PROTEIN, SERUM 5.8 g/dL (6.4-8.2); TRIGLYCERIDES 104 mg/dL (15-150); UREA NITROGEN, BLOOD 5 mg/dL (7-18)
[2019-12-24] MEDS: FOLIC ACID 1 MG TABLET PO SCH (10:09)
[2019-12-24] MEDS: PRAZOSIN HCL 1 MG CAPSULE PO SCH (21:36)
[2019-12-24] MEDS: ESZOPICLONE 3 MG TABLET PO SCH (21:36)
[2019-12-25 00:24] VITALS: BP 133/77
[2019-12-25] MEDS: NALTREXONE HCL 50 MG TABLET PO SCH (08:26)
[2019-12-25] MEDS: MULTIVITAMINS WITH MINERALS, THERAPEUTIC TABLET PO SCH (08:26)
[2019-12-25] MEDS: CarBAMazepine 200 MG TABLET PO SCH (08:26)
[2019-12-25] MEDS: BusPIRone HCL 5 MG TABLET PO SCH ×2 (08:26→13:00)
[2019-12-25] MEDS: DIAZEPAM 10 MG TABLET PO SCH ×2 (08:26→13:00)
[2019-12-25] MEDS: THIAMINE HCL 100 MG TABLET PO SCH (08:26)
[2019-12-25] MEDS: FOLIC ACID 1 MG TABLET PO SCH (08:26)
[2019-12-25] MEDS: GABAPENTIN 300 MG CAPSULE PO SCH ×2 (08:28→13:00)
[2019-12-25] MEDS: NICOTINE 21 MG/24 HOUR PATCH TD SCH (08:32)
[2019-12-25 08:45] VITALS: BP 146/87
[2019-12-25 08:53] VITALS: BP 146/87
[2019-12-25] MEDS ORDERED: DIAZ10 PO (15:09)
[2019-12-25] MEDS ORDERED: GABA-531 PO (15:09)
[2019-12-25] MEDS ORDERED: ESZO3 PO (15:09)
[2019-12-25] MEDS ORDERED: CARB200T6 PO (15:09)
[2019-12-25] MEDS ORDERED: NALT50TA PO (15:09)
[2019-12-25] MEDS ORDERED: PRAZ1 PO (15:09)
[2019-12-25] MEDS ORDERED: QUET200T29 PO (15:09)
[2019-12-25] MEDS ORDERED: BUSP5TAB20 PO (15:09)
[2019-12-26] MEDS ORDERED: DIAZEPAM 5 MG TABLET PO PRN (07:00)
[2019-12-26] MEDS ORDERED: DIAZEPAM 5 MG TABLET PO SCH (09:00)
[2019-12-27] MEDS ORDERED: DIAZEPAM 5 MG TABLET PO PRN (07:00)
[2019-12-27] MEDS ORDERED: GABA-531 PO (11:22)
[2019-12-27] MEDS ORDERED: DOCU-275 PO (11:22)
[2019-12-27] MEDS ORDERED: PANT40TA25 PO (11:23)
[2019-12-27] MEDS ORDERED: QUET25TA PO (11:24)
[2019-12-27] MEDS ORDERED: ESZO3 PO (11:25)
[2019-12-27] MEDS ORDERED: QUET200T PO (11:25)
[2019-12-27] MEDS ORDERED: MOM30 PO (11:26)
[2019-12-27] MEDS ORDERED: ZOLP-280 PO (11:27)
== END 2019-12-25 15:24 | disposition short-term general hospital (02) | DRG 885 ==
LOC: B2X 17:33
PROVIDERS: ADMIT Psychiatry & Neurology Psychiatry; ATTEND Psychiatry & Neurology Psychiatry
DX: F25.9 Schizoaffective disorder, unspecified (principal); B19.20 Unspecified viral hepatitis C without hepatic coma; R45.851 Suicidal ideations; F43.10 Post-traumatic stress disorder, unspecified; E78.5 Hyperlipidemia, unspecified; I10 Essential (primary) hypertension; J44.9 Chronic obstructive pulmonary disease, unspecified; E66.9 Obesity, unspecified; F41.9 Anxiety disorder, unspecified; G47.00 Insomnia, unspecified; Z59.0 Homelessness; Z68.28 Body mass index [BMI] 28.0-28.9, adult; Z88.8 Allergy status to other drugs, medicaments and biological substances; Z79.899 Other long term (current) drug therapy; Z91.19 Patient's noncompliance with other medical treatment and regimen
CPT/HCPCS: 83036; 84439; 84443; 87081; J3420

== ENCOUNTER 2019-12-27 13:33 | Inpatient (IN) | payer MEDICARE, MEDICAID ==
[~2019-12-27] VITALS: Ht 175.3 cm; Wt 86.2 kg
[~2019-12-27 13:33] MED LIST changes: -BUSP10TA23 PO; +BUSP5TAB20 PO; +DIAZ10 PO; -ESZO2 PO; +ESZO3 PO; +MOM30 PO; -OMEP20 PO; +PANT40TA25 PO; +QUET200T PO; +QUET200T29 PO; -QUET300T2 PO; +ZOLP-280 PO
[2019-12-27 17:22] VITALS: BP 121/76
[2019-12-27] MEDS ORDERED: ESZOPICLONE 3 MG TABLET PO PRN (17:45)
[2019-12-27] MEDS ORDERED: LORazepam 2 MG TABLET PO PRN (17:45)
[2019-12-27 18:30] VITALS: BP 124/79
[2019-12-27] MEDS ORDERED: ESZOPICLONE 3 MG TABLET PO SCH (21:00)
[2019-12-27] MEDS ORDERED: QUEtiapine FUMARATE 200 MG TABLET PO SCH (21:00)
[2019-12-28 01:06] VITALS: BP 114/87
[2019-12-28 08:32] VITALS: BP 118/69
[2019-12-28] MEDS: QUEtiapine FUMARATE 100 MG TABLET PO PRN ×2 (10:01→14:34)
[2019-12-28] MEDS ORDERED: ESZO3 PO (14:26)
== END 2019-12-28 14:22 | disposition home or self-care (01) | DRG 885 ==
LOC: B2X 18:04
PROVIDERS: ADMIT Psychiatry & Neurology Psychiatry; ATTEND Psychiatry & Neurology Child & Adolescent Psychiatry
DX: F25.9 Schizoaffective disorder, unspecified (principal); J44.9 Chronic obstructive pulmonary disease, unspecified; E78.5 Hyperlipidemia, unspecified; I10 Essential (primary) hypertension; F15.10 Other stimulant abuse, uncomplicated; Z20.828 Contact with and (suspected) exposure to other viral communicable diseases; F41.9 Anxiety disorder, unspecified; G47.00 Insomnia, unspecified; Z88.8 Allergy status to other drugs, medicaments and biological substances
CPT/HCPCS: 87081

== ENCOUNTER 2020-01-25 22:08 | Inpatient (IN) | payer MEDICARE, MEDICAID ==
[~2020-01-25] VITALS: Ht 175.3 cm; Wt 85.8 kg
[~2020-01-25 22:08] MED LIST changes: -BUSP5TAB20 PO; -CARB200T6 PO; -DIAZ10 PO; -DOCU-275 PO; -GABA-531 PO; -MOM30 PO; -NALT50TA PO; -PANT40TA25 PO; -PRAZ1 PO; -QUET200T29 PO; -QUET25TA PO; -ZOLP-280 PO
[2020-01-25 23:07] LABS: BASOPHILS % (AUTO) 0.5 % (0.0-2.0); EOSINOPHILS % (AUTO) 0.1 % (1.0-6.0); HEMATOCRIT 49.6 % (41-53); HEMOGLOBIN 16.5 g/dL (13.5-17.5); LYMPHOCYTES # (AUTO) 3.4 K/uL (1.0-4.8); LYMPHOCYTES % (AUTO) 31.5 % (22.0-44.0); MEAN CORPUSCULAR HEMOGLOBIN 31.4 pg (26.0-34.0); MEAN CORPUSCULAR HGB CONC 33.3 G/dL (31.0-37.0); MEAN CORPUSCULAR VOLUME 95 fL (80-100); MONOCYTES # (AUTO) 1.6 K/uL (0.1-1.0); MONOCYTES % (AUTO) 15.3 % (2.0-9.0); NEUTROPHILS # (AUTO) 5.6 K/uL (1.8-7.7); NEUTROPHILS % (AUTO) 52.6 % (40.0-70.0); PLATELET COUNT (AUTO) 188 K/uL (150-450); RED BLOOD CELL COUNT(AUTO) 5.25 MIL/uL (4.50-5.90); RED CELL DISTRIBUTION WIDTH 14.1 % (11.5-14.5)
[2020-01-25 23:20] LABS: ANION GAP 14 mmol/L (8-16); CALCIUM, TOTAL 8.3 mg/dL (8.8-10.5); CARBON DIOXIDE 23 mmol/L (22-29); CHLORIDE 100 mmol/L (98-107); CREATININE 1.16 mg/dL (0.60-1.30); GLOMERULAR FILTR. RATE CALC > 60 mL/min (>60); GLUCOSE,RANDOM 97 mg/dL (70-110); POTASSIUM 3.9 mmol/L (3.5-5.1); SODIUM SERUM 137 mmol/L (136-145); UREA NITROGEN, BLOOD 11 mg/dL (7-18)
[2020-01-25 23:23] LABS: SALICYLATE 4.5 mg/dL (2.8-20.0)
[2020-01-25 23:45] LABS: ALANINE AMINOTRANSFERASE 160 U/L (12-78); ALBUMIN 3.9 g/dL (3.4-5.0); ALKALINE PHOSPHATASE 78 U/L (46-116); ASPARTATE AMINOTRANSFERASE 70 U/L (15-37); BILIRUBIN,TOTAL 0.5 mg/dL (0.1-1.0); CREATINE KINASE, TOTAL ONLY 480 U/L (39-308); TOTAL PROTEIN, SERUM 7.4 g/dL (6.4-8.2)
[2020-01-25 23:51] LABS: ACETAMINOPHEN < 2 mcg/mL (10-30)
[2020-01-26] MEDS ORDERED: LORazepam 2 MG TABLET PO ONE (02:00)
[2020-01-26] MEDS ORDERED: ZOLPIDEM TARTRATE 10 MG TABLET PO PRN (03:00)
[2020-01-26 05:07] VITALS: BP 149/86
[2020-01-26] MEDS: LORazepam 2 MG TABLET PO PRN ×3 (06:16→14:27)
[2020-01-26] MEDS ORDERED: DOCUSATE SODIUM 100 MG CAPSULE PO PRN (07:30)
[2020-01-26] MEDS ORDERED: MAGNESIUM HYDROXIDE SUSPENSION 30 ML UDCUP PO PRN (07:30)
[2020-01-26] MEDS ORDERED: MAG HYDROX/AL HYDROX/SIMETH ES 30 ML SUSPENSION UDCUP PO PRN (07:30)
[2020-01-26] MEDS ORDERED: CloNIDine HCL 0.1 MG TABLET PO PRN (07:30)
[2020-01-26] MEDS ORDERED: BENZOCAINE/MENTHOL LOZENGE MM PRN (07:30)
[2020-01-26] MEDS ORDERED: PETROLATUM,WHITE 28 GM JELLY TP PRN (07:30)
[2020-01-26] MEDS ORDERED: LOPERAMIDE HCL 2 MG CAPSULE PO PRN (07:30)
[2020-01-26] MEDS ORDERED: BACITRACIN 28.4 GM OINTMENT TP PRN (07:30)
[2020-01-26] MEDS ORDERED: OMEPRAZOLE 20 MG CAPSULE PO PRN (07:30)
[2020-01-26] MEDS ORDERED: ONDANSETRON HCL 4 MG TABLET PO PRN (07:30)
[2020-01-26] MEDS ORDERED: IBUPROFEN 600 MG TABLET PO PRN (07:30)
[2020-01-26] MEDS ORDERED: ACETAMINOPHEN 325 MG TABLET PO PRN (07:30)
[2020-01-26] MEDS ORDERED: ALBUTEROL SULFATE HFA 90 MCG/PUFF 8 GM INHALER IH PRN (07:30)
[2020-01-26 09:14] VITALS: BP 132/105
[2020-01-26] MEDS ORDERED: ESZOPICLONE 3 MG TABLET PO PRN (13:30)
[2020-01-26 14:25] VITALS: BP 144/78
[2020-01-26 17:00] VITALS: BP 135/87
[2020-01-26] MEDS: ESZOPICLONE 3 MG TABLET PO SCH (20:04)
[2020-01-26] MEDS: QUEtiapine FUMARATE 200 MG TABLET PO SCH (20:04)
[2020-01-27 07:59] LABS: CHOL/HDL RATIO 3.3 (4.2-7.3)
[2020-01-27 08:32] VITALS: BP 142/98
[2020-01-27 17:00] VITALS: BP 152/76
[2020-01-27] MEDS: LORazepam 2 MG TABLET PO PRN (17:17)
[2020-01-27] MEDS: ESZOPICLONE 3 MG TABLET PO SCH (20:12)
[2020-01-27] MEDS: QUEtiapine FUMARATE 200 MG TABLET PO SCH (20:13)
[2020-01-28 09:51] VITALS: BP 135/82
[2020-01-28] MEDS: LORazepam 2 MG TABLET PO PRN ×2 (14:14→19:35)
[2020-01-28 16:47] VITALS: BP 136/99
[2020-01-28] MEDS: QUEtiapine FUMARATE 200 MG TABLET PO SCH (20:06)
[2020-01-28] MEDS: ESZOPICLONE 3 MG TABLET PO SCH (20:06)
[2020-01-29 08:37] VITALS: BP 126/73
[2020-01-29] MEDS: LORazepam 2 MG TABLET PO PRN (13:40)
[2020-01-29] MEDS ORDERED: PALI234D IM (14:43)
[2020-01-29] MEDS ORDERED: PALIPERIDONE PALMITATE 234 MG/1.5 ML SYRINGE IM ONE (15:00)
[2020-01-29 19:48] VITALS: BP 140/76
[2020-01-29] MEDS: ESZOPICLONE 3 MG TABLET PO SCH (20:11)
[2020-01-29] MEDS: QUEtiapine FUMARATE 200 MG TABLET PO SCH (20:11)
[2020-01-30 08:44] VITALS: BP 135/81
[2020-01-30] MEDS: LORazepam 2 MG TABLET PO PRN (16:16)
[2020-01-30 16:57] VITALS: BP 122/82
[2020-01-30] MEDS: ESZOPICLONE 3 MG TABLET PO SCH (20:03)
[2020-01-30] MEDS: QUEtiapine FUMARATE 200 MG TABLET PO SCH (20:04)
[2020-01-31 08:00] VITALS: BP 114/73
[2020-01-31] MEDS: LORazepam 2 MG TABLET PO PRN ×2 (15:56→20:09)
[2020-01-31 16:00] VITALS: BP 122/86
[2020-01-31] MEDS: ESZOPICLONE 3 MG TABLET PO SCH (20:09)
[2020-01-31] MEDS: QUEtiapine FUMARATE 200 MG TABLET PO SCH (20:09)
[2020-02-01 08:00] VITALS: BP 124/88
[2020-02-01] MEDS: LORazepam 2 MG TABLET PO PRN ×2 (13:43→18:04)
[2020-02-01 17:11] VITALS: BP 117/84
[2020-02-01] MEDS: ESZOPICLONE 3 MG TABLET PO SCH (20:36)
[2020-02-01] MEDS: QUEtiapine FUMARATE 200 MG TABLET PO SCH (20:36)
[2020-02-02 06:05] VITALS: BP 103/58
[2020-02-02 09:00] VITALS: BP 114/69
[2020-02-02] MEDS: LORazepam 2 MG TABLET PO PRN ×2 (12:57→18:36)
[2020-02-02 19:25] VITALS: BP 119/81
[2020-02-02] MEDS: QUEtiapine FUMARATE 200 MG TABLET PO SCH (20:04)
[2020-02-02] MEDS: ESZOPICLONE 3 MG TABLET PO SCH (20:04)
[2020-02-03 08:00] VITALS: BP 139/89
[2020-02-03] MEDS: THIAMINE 100 MG TABLET PO SCH (08:43)
[2020-02-03] MEDS: FOLIC ACID 1 MG TABLET PO SCH (08:43)
[2020-02-03] MEDS: LORazepam 2 MG TABLET PO PRN ×2 (12:13→17:18)
[2020-02-03 18:30] VITALS: BP 137/91
[2020-02-03] MEDS: ESZOPICLONE 3 MG TABLET PO SCH (20:24)
[2020-02-03] MEDS: QUEtiapine FUMARATE 200 MG TABLET PO SCH (20:24)
[2020-02-04 08:00] VITALS: BP 110/70
[2020-02-04] MEDS: FOLIC ACID 1 MG TABLET PO SCH (08:03)
[2020-02-04] MEDS: THIAMINE 100 MG TABLET PO SCH (08:03)
[2020-02-04 11:37] VITALS: BP 126/81
[2020-02-04] MEDS: LORazepam 2 MG TABLET PO PRN ×2 (11:39→16:10)
[2020-02-04 19:13] VITALS: BP 134/79
[2020-02-04] MEDS: QUEtiapine FUMARATE 200 MG TABLET PO SCH (20:00)
[2020-02-04] MEDS: ESZOPICLONE 3 MG TABLET PO SCH (20:00)
[2020-02-05 05:11] VITALS: BP 102/80
[2020-02-05] MEDS: THIAMINE 100 MG TABLET PO SCH (08:11)
[2020-02-05] MEDS: FOLIC ACID 1 MG TABLET PO SCH (08:11)
[2020-02-05 09:37] VITALS: BP 118/80
[2020-02-05] MEDS: LORazepam 2 MG TABLET PO PRN ×2 (12:36→17:58)
[2020-02-05 16:21] VITALS: BP 120/84
[2020-02-05] MEDS: QUEtiapine FUMARATE 200 MG TABLET PO SCH (20:51)
[2020-02-05] MEDS: ESZOPICLONE 3 MG TABLET PO SCH (20:51)
[2020-02-06 03:55] VITALS: BP 114/82
[2020-02-06] MEDS: FOLIC ACID 1 MG TABLET PO SCH (08:59)
[2020-02-06] MEDS: THIAMINE 100 MG TABLET PO SCH (08:59)
== END 2020-02-06 12:20 | disposition home or self-care (01) | DRG 885 ==
LOC: EMS 22:12 → 3EX 01-26 04:01
PROVIDERS: ADMIT Psychiatry & Neurology Psychiatry; ATTEND Psychiatry & Neurology Psychiatry
DX: F25.1 Schizoaffective disorder, depressive type (principal); F10.229 Alcohol dependence with intoxication, unspecified; R45.851 Suicidal ideations; E78.00 Pure hypercholesterolemia, unspecified; E78.5 Hyperlipidemia, unspecified; F12.90 Cannabis use, unspecified, uncomplicated; F15.10 Other stimulant abuse, uncomplicated; I10 Essential (primary) hypertension; J44.9 Chronic obstructive pulmonary disease, unspecified; Z87.891 Personal history of nicotine dependence
CPT/HCPCS: 87081; G0378; G0480; G0481; Q0162

== ENCOUNTER 2020-03-25 09:57 | Inpatient (IN) | payer MEDICARE, MEDICAID ==
[~2020-03-25] VITALS: Ht 175.3 cm; Wt 96.2 kg
[~2020-03-25 09:57] MED LIST changes: +PALI234D IM
[2020-03-25 17:12] VITALS: BP 141/95
[2020-03-25 17:14] VITALS: BP 141/95
[2020-03-25] MEDS ORDERED: -PHARMACY VACCINE NOTE- MISC ONE (17:30)
[2020-03-25 18:03] VITALS: BP 139/74
[2020-03-25 20:21] VITALS: BP 153/74
[2020-03-25] MEDS: QUEtiapine FUMARATE 100 MG TABLET PO PRN (21:00)
[2020-03-25] MEDS: LORazepam 2 MG TABLET PO PRN (21:52)
[2020-03-26] VITALS (11 sets, daily range): BP systolic 127–138; BP diastolic 79–101
[2020-03-26 07:14] LABS: BASOPHILS % (AUTO) 0.4 % (0.0-2.0); EOSINOPHILS % (AUTO) 1.4 % (1.0-6.0); HEMATOCRIT 43.9 % (41-53); LYMPHOCYTES # (AUTO) 1.8 K/uL (1.0-4.8); LYMPHOCYTES % (AUTO) 34.4 % (22.0-44.0); MEAN CORPUSCULAR HEMOGLOBIN 32.4 pg (26.0-34.0); MEAN CORPUSCULAR HGB CONC 34.1 G/dL (31.0-37.0); MEAN CORPUSCULAR VOLUME 95 fL (80-100); MONOCYTES # (AUTO) 0.7 K/uL (0.1-1.0); MONOCYTES % (AUTO) 12.8 % (2.0-9.0); NEUTROPHILS # (AUTO) 2.6 K/uL (1.8-7.7); PLATELET COUNT (AUTO) 162 K/uL (150-450); RED BLOOD CELL COUNT(AUTO) 4.62 MIL/uL (4.50-5.90); RED CELL DISTRIBUTION WIDTH 14.2 % (11.5-14.5)
[2020-03-26 07:51] LABS: ALANINE AMINOTRANSFERASE 226 U/L (12-78); ALBUMIN 3.3 g/dL (3.4-5.0); ALKALINE PHOSPHATASE 80 U/L (46-116); ANION GAP 13 mmol/L (8-16); ASPARTATE AMINOTRANSFERASE 83 U/L (15-37); BILIRUBIN,TOTAL 0.6 mg/dL (0.1-1.0); CARBON DIOXIDE 26 mmol/L (22-29); CHLORIDE 102 mmol/L (98-107); CHOL/HDL RATIO 2.5 (4.2-7.3); CHOLESTEROL 182 mg/dL (131-200); CREATININE 0.72 mg/dL (0.60-1.30); FREE T4 (FREE THYROXINE) 0.79 ng/dL (0.76-1.46); GLOMERULAR FILTR. RATE CALC > 60 mL/min (>60); GLUCOSE,RANDOM 113 mg/dL (70-110); HDL CHOLESTEROL 73 mg/dL (40-60); LDL CHOL (CALC.) 95 mg/dL (0-130); POTASSIUM 3.6 mmol/L (3.5-5.1); SODIUM SERUM 141 mmol/L (136-145); THYROID STIMULATING HORMONE 1.76 uIU/mL (0.36-3.74); TOTAL PROTEIN, SERUM 6.4 g/dL (6.4-8.2); TRIGLYCERIDES 71 mg/dL (15-150); UREA NITROGEN, BLOOD 8 mg/dL (7-18)
[2020-03-26] MEDS: BACITRACIN 28.4 GM OINTMENT TP SCH ×2 (09:31→16:38)
[2020-03-26] MEDS: LORazepam 2 MG TABLET PO PRN (09:41)
[2020-03-26] MEDS ORDERED: LORazepam 2 MG TABLET PO PRN (10:30)
[2020-03-26] MEDS: QUEtiapine FUMARATE 100 MG TABLET PO PRN (12:14)
[2020-03-26] MEDS: QUEtiapine FUMARATE 200 MG TABLET PO SCH (20:23)
[2020-03-27] VITALS (8 sets, daily range): BP systolic 122–133; BP diastolic 70–99
[2020-03-27] MEDS ORDERED: LORazepam 2 MG TABLET PO PRN (07:00)
[2020-03-27] MEDS: LORazepam 2 MG TABLET PO SCH ×4 (09:54→20:41)
[2020-03-27] MEDS: BACITRACIN 28.4 GM OINTMENT TP SCH ×2 (09:54→16:40)
[2020-03-27] MEDS: QUEtiapine FUMARATE 200 MG TABLET PO SCH (20:41)
[2020-03-28 05:33] VITALS: BP 133/90
[2020-03-28 06:05] VITALS: BP 122/68
[2020-03-28] MEDS ORDERED: CloNIDine HCL 0.1 MG TABLET PO PRN (08:15)
[2020-03-28] MEDS ORDERED: ALBUTEROL SULFATE HFA 90 MCG/PUFF 8 GM INHALER IH PRN (08:15)
[2020-03-28] MEDS ORDERED: LOPERAMIDE HCL 2 MG CAPSULE PO PRN (08:15)
[2020-03-28] MEDS ORDERED: PETROLATUM,WHITE 28 GM JELLY TP PRN (08:15)
[2020-03-28] MEDS ORDERED: ACETAMINOPHEN 325 MG TABLET PO PRN (08:15)
[2020-03-28] MEDS ORDERED: BACITRACIN 28.4 GM OINTMENT TP PRN (08:15)
[2020-03-28] MEDS ORDERED: IBUPROFEN 600 MG TABLET PO PRN (08:15)
[2020-03-28] MEDS ORDERED: DOCUSATE SODIUM 100 MG CAPSULE PO PRN (08:15)
[2020-03-28] MEDS ORDERED: ONDANSETRON HCL 4 MG TABLET PO PRN (08:15)
[2020-03-28] MEDS ORDERED: OMEPRAZOLE 20 MG CAPSULE PO PRN (08:15)
[2020-03-28] MEDS ORDERED: MAG HYDROX/AL HYDROX/SIMETH ES 30 ML SUSPENSION UDCUP PO PRN (08:15)
[2020-03-28] MEDS ORDERED: MAGNESIUM HYDROXIDE SUSPENSION 30 ML UDCUP PO PRN (08:15)
[2020-03-28] MEDS ORDERED: BENZOCAINE/MENTHOL LOZENGE MM PRN (08:15)
[2020-03-28 08:56] VITALS: BP 132/77
[2020-03-28 09:21] VITALS: BP 132/77
[2020-03-28] MEDS: LORazepam 2 MG TABLET PO SCH ×4 (09:25→20:36)
[2020-03-28] MEDS: BACITRACIN 28.4 GM OINTMENT TP SCH ×2 (09:25→16:32)
[2020-03-28 16:25] VITALS: BP 125/79
[2020-03-28 16:30] VITALS: BP 125/79
[2020-03-28] MEDS: QUEtiapine FUMARATE 200 MG TABLET PO SCH (20:36)
[2020-03-29 00:52] VITALS: BP 116/78
[2020-03-29 02:38] VITALS: BP 116/78
[2020-03-29] MEDS ORDERED: LORazepam 1 MG TABLET PO PRN (07:00)
[2020-03-29 08:59] VITALS: BP 100/60
[2020-03-29] MEDS: LORazepam 1 MG TABLET PO SCH ×4 (09:28→20:23)
[2020-03-29] MEDS: BACITRACIN 28.4 GM OINTMENT TP SCH ×2 (09:28→16:35)
[2020-03-29 11:13] VITALS: BP 129/79
[2020-03-29 16:27] VITALS: BP 118/85
[2020-03-29] MEDS: QUEtiapine FUMARATE 200 MG TABLET PO SCH (20:23)
[2020-03-29] MEDS: ZOLPIDEM TARTRATE 10 MG TABLET PO PRN (21:29)
[2020-03-30 00:26] VITALS: BP 112/79
[2020-03-30 08:08] VITALS: BP 108/68
[2020-03-30] MEDS: BACITRACIN 28.4 GM OINTMENT TP SCH ×2 (09:05→16:06)
[2020-03-30 09:19] VITALS: BP 108/68
[2020-03-30] MEDS: LORazepam 1 MG TABLET PO PRN (16:06)
[2020-03-30 16:26] VITALS: BP 122/85
[2020-03-30] MEDS: QUEtiapine FUMARATE 200 MG TABLET PO SCH (19:48)
[2020-03-30] MEDS: ZOLPIDEM TARTRATE 10 MG TABLET PO PRN (20:35)
[2020-03-31] MEDS: LORazepam 1 MG TABLET PO PRN (01:18)
[2020-03-31 01:33] VITALS: BP 106/79
[2020-03-31 01:57] VITALS: BP 106/79
[2020-03-31 08:06] VITALS: BP 134/73
[2020-03-31 08:11] VITALS: BP 134/73
[2020-03-31] MEDS ORDERED: PALIPERIDONE PALMITATE 234 MG/1.5 ML SYRINGE IM SCH (09:00)
[2020-03-31] MEDS: BACITRACIN 28.4 GM OINTMENT TP SCH ×2 (09:23→16:35)
[2020-03-31 16:15] VITALS: BP 114/68
[2020-03-31 16:24] VITALS: BP 109/87
[2020-03-31] MEDS: QUEtiapine FUMARATE 200 MG TABLET PO SCH (20:42)
[2020-04-01 01:00] VITALS: BP 131/82
[2020-04-01 01:11] VITALS: BP 131/82
[2020-04-01 08:34] VITALS: BP 108/77
[2020-04-01] MEDS: BACITRACIN 28.4 GM OINTMENT TP SCH ×2 (08:41→16:32)
[2020-04-01 10:12] VITALS: BP 108/77
[2020-04-01 16:00] VITALS: BP 122/78
[2020-04-01] MEDS: QUEtiapine FUMARATE 200 MG TABLET PO SCH (20:32)
[2020-04-02 00:21] VITALS: BP 120/91
[2020-04-02 00:25] VITALS: BP 120/91
[2020-04-02 08:20] VITALS: BP 101/60
[2020-04-02] MEDS: MULTIVITAMINS WITH MINERALS, THERAPEUTIC TABLET PO SCH (09:08)
[2020-04-02] MEDS: FOLIC ACID 1 MG TABLET PO SCH (09:08)
[2020-04-02] MEDS: THIAMINE 100 MG TABLET PO SCH (09:09)
[2020-04-02] MEDS: BACITRACIN 28.4 GM OINTMENT TP SCH ×2 (09:10→16:58)
[2020-04-02 13:36] VITALS: BP 110/89
[2020-04-02] MEDS: LORazepam 2 MG TABLET PO PRN ×2 (13:42→18:40)
[2020-04-02 16:00] VITALS: BP 132/85
[2020-04-02 16:32] VITALS: BP 132/87
[2020-04-02] MEDS: QUEtiapine FUMARATE 200 MG TABLET PO SCH (20:28)
[2020-04-03 03:19] VITALS: BP 103/70
[2020-04-03 08:15] VITALS: BP 125/67
[2020-04-03] MEDS: FOLIC ACID 1 MG TABLET PO SCH (08:53)
[2020-04-03] MEDS: MULTIVITAMINS WITH MINERALS, THERAPEUTIC TABLET PO SCH (08:53)
[2020-04-03] MEDS: THIAMINE 100 MG TABLET PO SCH (08:53)
[2020-04-03] MEDS: BACITRACIN 28.4 GM OINTMENT TP SCH ×2 (09:22→16:02)
[2020-04-03] MEDS: LORazepam 2 MG TABLET PO PRN (15:59)
[2020-04-03 16:08] VITALS: BP 113/82
[2020-04-03] MEDS: QUEtiapine FUMARATE 200 MG TABLET PO SCH (20:12)
[2020-04-03] MEDS: ZOLPIDEM TARTRATE 10 MG TABLET PO PRN (20:26)
[2020-04-04 00:47] VITALS: BP 121/71
[2020-04-04] MEDS: LORazepam 2 MG TABLET PO PRN ×2 (04:31→14:50)
[2020-04-04 08:26] VITALS: BP 108/79
[2020-04-04] MEDS: THIAMINE 100 MG TABLET PO SCH (08:40)
[2020-04-04] MEDS: MULTIVITAMINS WITH MINERALS, THERAPEUTIC TABLET PO SCH (08:40)
[2020-04-04] MEDS: FOLIC ACID 1 MG TABLET PO SCH (08:40)
[2020-04-04] MEDS: BACITRACIN 28.4 GM OINTMENT TP SCH ×2 (08:41→19:01)
[2020-04-04 16:28] VITALS: BP 118/89
[2020-04-04] MEDS: QUEtiapine FUMARATE 200 MG TABLET PO SCH (20:31)
[2020-04-04] MEDS: ZOLPIDEM TARTRATE 10 MG TABLET PO PRN (20:57)
[2020-04-05 00:23] VITALS: BP 115/78
[2020-04-05 08:47] VITALS: BP 117/76
[2020-04-05] MEDS: MULTIVITAMINS WITH MINERALS, THERAPEUTIC TABLET PO SCH (09:10)
[2020-04-05] MEDS: FOLIC ACID 1 MG TABLET PO SCH (09:10)
[2020-04-05] MEDS: THIAMINE 100 MG TABLET PO SCH (09:10)
[2020-04-05 16:12] VITALS: BP 126/74
[2020-04-05] MEDS: QUEtiapine FUMARATE 200 MG TABLET PO SCH (20:39)
[2020-04-06 00:10] VITALS: BP 122/70
[2020-04-06 09:09] VITALS: BP 131/75
[2020-04-06] MEDS: FOLIC ACID 1 MG TABLET PO SCH (09:15)
[2020-04-06] MEDS: MULTIVITAMINS WITH MINERALS, THERAPEUTIC TABLET PO SCH (09:15)
[2020-04-06] MEDS: THIAMINE 100 MG TABLET PO SCH (09:15)
[2020-04-06 16:32] VITALS: BP 120/80
[2020-04-06] MEDS: QUEtiapine FUMARATE 200 MG TABLET PO SCH (20:46)
[2020-04-07 01:48] VITALS: BP 118/78
[2020-04-07 08:35] VITALS: BP 104/60
[2020-04-07] MEDS: MULTIVITAMINS WITH MINERALS, THERAPEUTIC TABLET PO SCH (08:44)
[2020-04-07] MEDS: THIAMINE 100 MG TABLET PO SCH (08:45)
[2020-04-07] MEDS: FOLIC ACID 1 MG TABLET PO SCH (08:45)
[2020-04-07 16:40] VITALS: BP 127/72
[2020-04-07] MEDS: QUEtiapine FUMARATE 200 MG TABLET PO SCH (20:43)
[2020-04-08 03:48] VITALS: BP 110/70
[2020-04-08 08:45] VITALS: BP 108/65
[2020-04-08] MEDS: MULTIVITAMINS WITH MINERALS, THERAPEUTIC TABLET PO SCH (08:51)
[2020-04-08] MEDS: THIAMINE 100 MG TABLET PO SCH (08:51)
[2020-04-08] MEDS: FOLIC ACID 1 MG TABLET PO SCH (08:51)
[2020-04-08 16:13] VITALS: BP 116/88
[2020-04-08] MEDS: QUEtiapine FUMARATE 200 MG TABLET PO SCH (20:14)
[2020-04-09 02:59] VITALS: BP 101/65
[2020-04-09 08:33] VITALS: BP 117/69
[2020-04-09] MEDS: THIAMINE 100 MG TABLET PO SCH (08:52)
[2020-04-09] MEDS: MULTIVITAMINS WITH MINERALS, THERAPEUTIC TABLET PO SCH (08:52)
[2020-04-09] MEDS: FOLIC ACID 1 MG TABLET PO SCH (08:52)
[2020-04-09 16:23] VITALS: BP 123/74
[2020-04-09] MEDS: QUEtiapine FUMARATE 200 MG TABLET PO SCH (20:34)
[2020-04-10 05:58] VITALS: BP 106/78
[2020-04-10 08:47] VITALS: BP 126/78
[2020-04-10] MEDS: THIAMINE 100 MG TABLET PO SCH (08:57)
[2020-04-10] MEDS: FOLIC ACID 1 MG TABLET PO SCH (08:57)
[2020-04-10] MEDS: MULTIVITAMINS WITH MINERALS, THERAPEUTIC TABLET PO SCH (08:57)
[2020-04-10 17:56] VITALS: BP 123/69
[2020-04-10] MEDS: QUEtiapine FUMARATE 200 MG TABLET PO SCH (20:37)
[2020-04-11 00:12] VITALS: BP 111/79
[2020-04-11 08:41] VITALS: BP 105/62
[2020-04-11] MEDS: FOLIC ACID 1 MG TABLET PO SCH (09:08)
[2020-04-11] MEDS: THIAMINE 100 MG TABLET PO SCH (09:08)
[2020-04-11] MEDS: MULTIVITAMINS WITH MINERALS, THERAPEUTIC TABLET PO SCH (09:08)
[2020-04-11 16:23] VITALS: BP 119/77
[2020-04-11] MEDS: QUEtiapine FUMARATE 200 MG TABLET PO SCH (20:34)
[2020-04-12 04:20] VITALS: BP 113/85
[2020-04-12 08:37] VITALS: BP 111/63
[2020-04-12] MEDS: THIAMINE 100 MG TABLET PO SCH (08:47)
[2020-04-12] MEDS: MULTIVITAMINS WITH MINERALS, THERAPEUTIC TABLET PO SCH (08:47)
[2020-04-12] MEDS: FOLIC ACID 1 MG TABLET PO SCH (08:47)
[2020-04-12 16:41] VITALS: BP 134/81
[2020-04-12] MEDS: QUEtiapine FUMARATE 200 MG TABLET PO SCH (20:47)
[2020-04-13 00:35] VITALS: BP 119/75
[2020-04-13 08:23] VITALS: BP 122/78
[2020-04-13] MEDS: FOLIC ACID 1 MG TABLET PO SCH (08:41)
[2020-04-13] MEDS: MULTIVITAMINS WITH MINERALS, THERAPEUTIC TABLET PO SCH (08:41)
[2020-04-13] MEDS: THIAMINE 100 MG TABLET PO SCH (08:41)
[2020-04-13 16:35] VITALS: BP 121/74
[2020-04-13] MEDS: QUEtiapine FUMARATE 200 MG TABLET PO SCH (20:43)
[2020-04-14 01:01] VITALS: BP 114/78
[2020-04-14 08:55] VITALS: BP 108/69
[2020-04-14] MEDS: FOLIC ACID 1 MG TABLET PO SCH (09:08)
[2020-04-14] MEDS: MULTIVITAMINS WITH MINERALS, THERAPEUTIC TABLET PO SCH (09:08)
[2020-04-14] MEDS: THIAMINE 100 MG TABLET PO SCH (09:08)
[2020-04-14 16:10] VITALS: BP 140/72
[2020-04-14] MEDS: QUEtiapine FUMARATE 200 MG TABLET PO SCH (20:37)
[2020-04-15 00:11] VITALS: BP 125/83
[2020-04-15] MEDS: MULTIVITAMINS WITH MINERALS, THERAPEUTIC TABLET PO SCH (08:31)
[2020-04-15] MEDS: THIAMINE 100 MG TABLET PO SCH (08:31)
[2020-04-15] MEDS: FOLIC ACID 1 MG TABLET PO SCH (08:31)
[2020-04-15 09:45] VITALS: BP 109/64
[2020-04-15 16:00] VITALS: BP 118/78
[2020-04-15] MEDS: QUEtiapine FUMARATE 200 MG TABLET PO SCH (20:38)
[2020-04-15] MEDS ORDERED: QUET300T2 PO (21:05)
[2020-04-16 00:56] VITALS: BP 111/86
== END 2020-04-16 07:00 | disposition home or self-care (01) | DRG 885 ==
LOC: B2X 17:03
PROVIDERS: ADMIT Psychiatry & Neurology Psychiatry; ATTEND Psychiatry & Neurology Psychiatry
DX: F25.9 Schizoaffective disorder, unspecified (principal); B19.20 Unspecified viral hepatitis C without hepatic coma; F10.239 Alcohol dependence with withdrawal, unspecified; R45.851 Suicidal ideations; J44.9 Chronic obstructive pulmonary disease, unspecified; I10 Essential (primary) hypertension; E78.5 Hyperlipidemia, unspecified; F15.10 Other stimulant abuse, uncomplicated; F41.9 Anxiety disorder, unspecified; G47.00 Insomnia, unspecified; Z20.828 Contact with and (suspected) exposure to other viral communicable diseases; Z88.8 Allergy status to other drugs, medicaments and biological substances
CPT/HCPCS: 83036; 84436; 84439; 84443; 87081

== ENCOUNTER 2020-03-25 10:41 | Emergency (ER) | payer MEDICARE, OTHER ==
[~2020-03-25] VITALS: Ht 175.3 cm; Wt 97.7 kg
[2020-03-25] MEDS ORDERED: LORazepam 2 MG TABLET PO ONE (11:45)
[2020-03-25 12:22] LABS: BASOPHILS % (AUTO) 0.5 % (0.0-2.0); EOSINOPHILS % (AUTO) 0.1 % (1.0-6.0); HEMATOCRIT 43.8 % (41-53); HEMOGLOBIN 14.5 g/dL (13.5-17.5); LYMPHOCYTES # (AUTO) 1.7 K/uL (1.0-4.8); LYMPHOCYTES % (AUTO) 22.3 % (22.0-44.0); MEAN CORPUSCULAR HEMOGLOBIN 31.4 pg (26.0-34.0); MEAN CORPUSCULAR HGB CONC 33.2 G/dL (31.0-37.0); MEAN CORPUSCULAR VOLUME 94 fL (80-100); MONOCYTES # (AUTO) 0.9 K/uL (0.1-1.0); MONOCYTES % (AUTO) 11.1 % (2.0-9.0); NEUTROPHILS # (AUTO) 5.1 K/uL (1.8-7.7); RED BLOOD CELL COUNT(AUTO) 4.63 MIL/uL (4.50-5.90); RED CELL DISTRIBUTION WIDTH 14.4 % (11.5-14.5)
[2020-03-25 12:24] LABS: PLATELET COUNT (AUTO) 174 K/uL (150-450)
[2020-03-25 12:31] LABS: ANION GAP 8 mmol/L (8-16); CALCIUM, TOTAL 8.6 mg/dL (8.8-10.5); CARBON DIOXIDE 28 mmol/L (22-29); CHLORIDE 101 mmol/L (98-107); CREATININE 0.59 mg/dL (0.60-1.30); GLOMERULAR FILTR. RATE CALC > 60 mL/min (>60); GLUCOSE,RANDOM 103 mg/dL (70-110); POTASSIUM 3.5 mmol/L (3.5-5.1); SODIUM SERUM 137 mmol/L (136-145); UREA NITROGEN, BLOOD 6 mg/dL (7-18)
[2020-03-25 12:36] LABS: ALANINE AMINOTRANSFERASE 286 U/L (12-78); ALBUMIN 3.7 g/dL (3.4-5.0); ALKALINE PHOSPHATASE 82 U/L (46-116); ASPARTATE AMINOTRANSFERASE 107 U/L (15-37); BILIRUBIN,TOTAL 0.9 mg/dL (0.1-1.0); TOTAL PROTEIN, SERUM 7.5 g/dL (6.4-8.2)
[2020-03-25 14:30] VITALS: BP 151/97
== END 2020-03-25 15:09 | disposition other institution (70) ==
LOC: EMS 10:43
DX: R45.851 Suicidal ideations (principal); F10.239 Alcohol dependence with withdrawal, unspecified; F31.9 Bipolar disorder, unspecified; J44.9 Chronic obstructive pulmonary disease, unspecified; E78.00 Pure hypercholesterolemia, unspecified; I10 Essential (primary) hypertension; F20.9 Schizophrenia, unspecified; F17.210 Nicotine dependence, cigarettes, uncomplicated; F12.90 Cannabis use, unspecified, uncomplicated; Z88.8 Allergy status to other drugs, medicaments and biological substances; Y90.0 Blood alcohol level of less than 20 mg/100 ml
CPT/HCPCS: 36415; 80053; 85025; 99285; G0480

== ENCOUNTER 2020-04-21 13:30 | Inpatient (IN) | payer MEDICARE, MEDICAID ==
[~2020-04-21] VITALS: Ht 175.3 cm; Wt 95.2 kg
[~2020-04-21 13:30] MED LIST changes: -ESZO3 PO; -QUET200T PO; +QUET300T2 PO
[2020-04-21 14:24] LABS: BASOPHILS % (AUTO) 0.7 % (0.0-2.0); EOSINOPHILS % (AUTO) 0.1 % (1.0-6.0); HEMOGLOBIN 15.3 g/dL (13.5-17.5); LYMPHOCYTES # (AUTO) 1.7 K/uL (1.0-4.8); LYMPHOCYTES % (AUTO) 21.1 % (22.0-44.0); MEAN CORPUSCULAR HEMOGLOBIN 32.3 pg (26.0-34.0); MEAN CORPUSCULAR HGB CONC 34.7 G/dL (31.0-37.0); MEAN CORPUSCULAR VOLUME 93 fL (80-100); MONOCYTES # (AUTO) 0.7 K/uL (0.1-1.0); MONOCYTES % (AUTO) 8.6 % (2.0-9.0); NEUTROPHILS # (AUTO) 5.6 K/uL (1.8-7.7); NEUTROPHILS % (AUTO) 69.5 % (40.0-70.0); PLATELET COUNT (AUTO) 181 K/uL (150-450); RED BLOOD CELL COUNT(AUTO) 4.72 MIL/uL (4.50-5.90); RED CELL DISTRIBUTION WIDTH 13.9 % (11.5-14.5)
[2020-04-21 14:32] LABS: ANION GAP 15 mmol/L (8-16); CARBON DIOXIDE 22 mmol/L (22-29); CHLORIDE 102 mmol/L (98-107); CREATININE 1.01 mg/dL (0.60-1.30); GLOMERULAR FILTR. RATE CALC > 60 mL/min (>60); GLUCOSE,RANDOM 84 mg/dL (70-110); SODIUM SERUM 139 mmol/L (136-145); UREA NITROGEN, BLOOD 9 mg/dL (7-18)
[2020-04-21 14:38] LABS: ALANINE AMINOTRANSFERASE 121 U/L (12-78); ALBUMIN 3.9 g/dL (3.4-5.0); ALKALINE PHOSPHATASE 65 U/L (46-116); ASPARTATE AMINOTRANSFERASE 67 U/L (15-37); BILIRUBIN,TOTAL 0.4 mg/dL (0.1-1.0); TOTAL PROTEIN, SERUM 7.2 g/dL (6.4-8.2)
[2020-04-21 15:44] LABS: AMPHET/METH SCREEN,URINE NEGATIVE (NEGATIVE); BARBITURATE SCREEN, URINE NEGATIVE (NEGATIVE); BENZODIAZEPINES SCREEN,URINE NEGATIVE (NEGATIVE); CANNABINOID SCREEN,URINE NEGATIVE (NEGATIVE); COCAINE SCREEN,URINE NEGATIVE (NEGATIVE); METHADONE SCREEN, URINE NEGATIVE (NEGATIVE); OPIATE SCREEN,URINE NEGATIVE (NEGATIVE); PHENCYCLIDINE SCREEN,URINE NEGATIVE (NEGATIVE)
[2020-04-21] MEDS ORDERED: LORazepam 2 MG TABLET PO ONE (18:15)
[2020-04-21] MEDS ORDERED: ZOLPIDEM TARTRATE 10 MG TABLET PO PRN (18:45)
[2020-04-21 20:01] VITALS: BP 166/100
[2020-04-21] MEDS ORDERED: NICOTINE 21 MG/24 HOUR PATCH TD PRN (20:45)
[2020-04-21] MEDS ORDERED: -PHARMACY VACCINE NOTE- MISC ONE (21:15)
[2020-04-21] MEDS: LORazepam 2 MG TABLET PO PRN (22:11)
[2020-04-22] MEDS: LORazepam 2 MG TABLET PO PRN ×2 (02:20→10:56)
[2020-04-22 06:04] VITALS: BP 127/61
[2020-04-22 06:39] LABS: CHOL/HDL RATIO 2.8 (4.2-7.3)
[2020-04-22] MEDS ORDERED: BENZOCAINE/MENTHOL LOZENGE MM PRN (07:15)
[2020-04-22] MEDS ORDERED: CloNIDine HCL 0.1 MG TABLET PO PRN (07:15)
[2020-04-22] MEDS ORDERED: IBUPROFEN 600 MG TABLET PO PRN (07:15)
[2020-04-22] MEDS ORDERED: BACITRACIN 28 GM OINTMENT TP PRN (07:15)
[2020-04-22] MEDS ORDERED: MAG HYDROX/AL HYDROX/SIMETH ES 30 ML SUSPENSION UDCUP PO PRN (07:15)
[2020-04-22] MEDS ORDERED: PETROLATUM,WHITE 28 GM JELLY TP PRN (07:15)
[2020-04-22] MEDS ORDERED: ALBUTEROL SULFATE HFA 90 MCG/PUFF 8 GM INHALER IH PRN (07:15)
[2020-04-22] MEDS ORDERED: LOPERAMIDE HCL 2 MG CAPSULE PO PRN (07:15)
[2020-04-22] MEDS ORDERED: DOCUSATE SODIUM 100 MG CAPSULE PO PRN (07:15)
[2020-04-22] MEDS ORDERED: ACETAMINOPHEN 325 MG TABLET PO PRN (07:15)
[2020-04-22] MEDS ORDERED: MAGNESIUM HYDROXIDE SUSPENSION 30 ML UDCUP PO PRN (07:15)
[2020-04-22] MEDS ORDERED: ONDANSETRON HCL 4 MG TABLET PO PRN (07:15)
[2020-04-22] MEDS ORDERED: OMEPRAZOLE 20 MG CAPSULE PO PRN (07:15)
[2020-04-22 08:00] VITALS: BP 134/76
[2020-04-22 17:18] VITALS: BP 142/89
[2020-04-22] MEDS: QUEtiapine FUMARATE 300 MG TABLET PO SCH (20:16)
[2020-04-23] MEDS: FOLIC ACID 1 MG TABLET PO SCH (07:57)
[2020-04-23] MEDS: THIAMINE 100 MG TABLET PO SCH (07:57)
[2020-04-23] MEDS: MULTIVITAMINS, THERAPEUTIC TABLET PO SCH (07:57)
[2020-04-23 08:00] VITALS: BP 100/50
[2020-04-23 16:31] VITALS: BP 144/99
[2020-04-23] MEDS: LORazepam 2 MG TABLET PO PRN (17:19)
[2020-04-23] MEDS: QUEtiapine FUMARATE 300 MG TABLET PO SCH (20:12)
[2020-04-24] MEDS: THIAMINE 100 MG TABLET PO SCH (08:23)
[2020-04-24] MEDS: MULTIVITAMINS, THERAPEUTIC TABLET PO SCH (08:23)
[2020-04-24] MEDS: FOLIC ACID 1 MG TABLET PO SCH (08:23)
[2020-04-24 09:35] VITALS: BP 115/65
[2020-04-24] MEDS: LORazepam 2 MG TABLET PO PRN (16:00)
[2020-04-24 16:28] VITALS: BP 132/90
[2020-04-24] MEDS: QUEtiapine FUMARATE 300 MG TABLET PO SCH (20:02)
[2020-04-25] MEDS: MULTIVITAMINS, THERAPEUTIC TABLET PO SCH (08:17)
[2020-04-25] MEDS: FOLIC ACID 1 MG TABLET PO SCH (08:18)
[2020-04-25] MEDS: THIAMINE 100 MG TABLET PO SCH (08:26)
[2020-04-25 08:42] VITALS: BP 116/75
[2020-04-25 16:31] VITALS: BP 127/88
[2020-04-25] MEDS: LORazepam 2 MG TABLET PO PRN (16:34)
[2020-04-25] MEDS: QUEtiapine FUMARATE 300 MG TABLET PO SCH (20:41)
[2020-04-26] MEDS: MULTIVITAMINS, THERAPEUTIC TABLET PO SCH (08:35)
[2020-04-26] MEDS: FOLIC ACID 1 MG TABLET PO SCH (08:35)
[2020-04-26] MEDS: THIAMINE 100 MG TABLET PO SCH (08:35)
[2020-04-26 08:46] VITALS: BP 117/68
[2020-04-26] MEDS: LORazepam 2 MG TABLET PO PRN ×2 (14:13→20:02)
[2020-04-26 16:14] VITALS: BP 115/72
[2020-04-26] MEDS: QUEtiapine FUMARATE 300 MG TABLET PO SCH (20:02)
[2020-04-27 08:00] VITALS: BP 123/82
[2020-04-27] MEDS: MULTIVITAMINS, THERAPEUTIC TABLET PO SCH (08:12)
[2020-04-27] MEDS: FOLIC ACID 1 MG TABLET PO SCH (08:12)
[2020-04-27] MEDS: THIAMINE 100 MG TABLET PO SCH (08:13)
[2020-04-27 16:10] VITALS: BP 131/89
[2020-04-27] MEDS: LORazepam 2 MG TABLET PO PRN (16:17)
[2020-04-27] MEDS: QUEtiapine FUMARATE 300 MG TABLET PO SCH (20:06)
[2020-04-28 03:15] VITALS: BP 109/79
[2020-04-28] MEDS: MULTIVITAMINS, THERAPEUTIC TABLET PO SCH (08:33)
[2020-04-28] MEDS: THIAMINE 100 MG TABLET PO SCH (08:33)
[2020-04-28] MEDS: FOLIC ACID 1 MG TABLET PO SCH (08:33)
[2020-04-28 09:00] VITALS: BP 111/78
[2020-04-28] MEDS ORDERED: PALIPERIDONE PALMITATE 234 MG/1.5 ML SYRINGE IM SCH (09:00)
[2020-04-28 16:00] VITALS: BP 141/92
[2020-04-28 16:30] VITALS: BP 138/94
[2020-04-28] MEDS: LORazepam 2 MG TABLET PO PRN (16:39)
[2020-04-28] MEDS: QUEtiapine FUMARATE 300 MG TABLET PO SCH (20:00)
[2020-04-29 08:00] VITALS: BP 117/71
[2020-04-29] MEDS: MULTIVITAMINS, THERAPEUTIC TABLET PO SCH (08:28)
[2020-04-29] MEDS: FOLIC ACID 1 MG TABLET PO SCH (08:28)
[2020-04-29] MEDS: THIAMINE 100 MG TABLET PO SCH (08:29)
[2020-04-29 17:16] VITALS: BP 135/89
[2020-04-29] MEDS: QUEtiapine FUMARATE 300 MG TABLET PO SCH (20:21)
[2020-04-30] MEDS: FOLIC ACID 1 MG TABLET PO SCH (08:22)
[2020-04-30] MEDS: THIAMINE 100 MG TABLET PO SCH (08:22)
[2020-04-30] MEDS: MULTIVITAMINS, THERAPEUTIC TABLET PO SCH (08:22)
[2020-04-30 09:00] VITALS: BP 120/83
[2020-04-30 16:22] VITALS: BP 128/81
[2020-04-30] MEDS: QUEtiapine FUMARATE 300 MG TABLET PO SCH (20:15)
[2020-05-01] MEDS: FOLIC ACID 1 MG TABLET PO SCH (08:25)
[2020-05-01] MEDS: MULTIVITAMINS, THERAPEUTIC TABLET PO SCH (08:25)
[2020-05-01] MEDS: THIAMINE 100 MG TABLET PO SCH (08:26)
[2020-05-01 08:55] VITALS: BP 119/72
[2020-05-01 16:09] VITALS: BP 124/80
[2020-05-01] MEDS: QUEtiapine FUMARATE 300 MG TABLET PO SCH (20:10)
[2020-05-02 08:00] VITALS: BP 113/80
[2020-05-02] MEDS: MULTIVITAMINS, THERAPEUTIC TABLET PO SCH (09:35)
[2020-05-02] MEDS: FOLIC ACID 1 MG TABLET PO SCH (09:35)
[2020-05-02] MEDS: THIAMINE 100 MG TABLET PO SCH (09:36)
[2020-05-02 16:17] VITALS: BP 116/78
[2020-05-02] MEDS: QUEtiapine FUMARATE 300 MG TABLET PO SCH (20:14)
[2020-05-03 08:00] VITALS: BP 141/91
[2020-05-03] MEDS: FOLIC ACID 1 MG TABLET PO SCH (08:26)
[2020-05-03] MEDS: MULTIVITAMINS, THERAPEUTIC TABLET PO SCH (08:26)
[2020-05-03] MEDS: THIAMINE 100 MG TABLET PO SCH (09:52)
[2020-05-03 16:58] VITALS: BP 135/82
[2020-05-03] MEDS: QUEtiapine FUMARATE 300 MG TABLET PO SCH (20:26)
[2020-05-03] MEDS: TRIAMCINOLONE 0.1% 15 GM CREAM TP SCH (21:13)
[2020-05-04 08:00] VITALS: BP 117/84
[2020-05-04] MEDS: THIAMINE 100 MG TABLET PO SCH (08:34)
[2020-05-04] MEDS: MULTIVITAMINS, THERAPEUTIC TABLET PO SCH (08:34)
[2020-05-04] MEDS: TRIAMCINOLONE 0.1% 15 GM CREAM TP SCH ×3 (08:34→15:52)
[2020-05-04] MEDS: FOLIC ACID 1 MG TABLET PO SCH (08:35)
[2020-05-04 16:17] VITALS: BP 163/93
[2020-05-04] MEDS: QUEtiapine FUMARATE 300 MG TABLET PO SCH (20:05)
[2020-05-05] MEDS: FOLIC ACID 1 MG TABLET PO SCH (08:07)
[2020-05-05] MEDS: MULTIVITAMINS, THERAPEUTIC TABLET PO SCH (08:07)
[2020-05-05] MEDS: TRIAMCINOLONE 0.1% 15 GM CREAM TP SCH ×3 (08:07→16:16)
[2020-05-05] MEDS: THIAMINE 100 MG TABLET PO SCH (08:08)
[2020-05-05 09:00] VITALS: BP 118/66
[2020-05-05 16:34] VITALS: BP 139/73
[2020-05-05] MEDS: QUEtiapine FUMARATE 300 MG TABLET PO SCH (20:03)
[2020-05-06 08:00] VITALS: BP 120/78
[2020-05-06] MEDS: THIAMINE 100 MG TABLET PO SCH (08:25)
[2020-05-06] MEDS: MULTIVITAMINS, THERAPEUTIC TABLET PO SCH (08:25)
[2020-05-06] MEDS: TRIAMCINOLONE 0.1% 15 GM CREAM TP SCH ×3 (08:25→17:12)
[2020-05-06] MEDS: FOLIC ACID 1 MG TABLET PO SCH (08:25)
[2020-05-06 16:30] VITALS: BP 137/80
[2020-05-06] MEDS: QUEtiapine FUMARATE 300 MG TABLET PO SCH (20:20)
[2020-05-07 08:33] VITALS: BP 134/73
[2020-05-07] MEDS: MULTIVITAMINS, THERAPEUTIC TABLET PO SCH (09:01)
[2020-05-07] MEDS: FOLIC ACID 1 MG TABLET PO SCH (09:01)
[2020-05-07] MEDS: TRIAMCINOLONE 0.1% 15 GM CREAM TP SCH ×3 (09:02→16:36)
[2020-05-07] MEDS: THIAMINE 100 MG TABLET PO SCH (09:02)
[2020-05-07 17:00] VITALS: BP 114/83
[2020-05-07] MEDS: QUEtiapine FUMARATE 300 MG TABLET PO SCH (20:02)
[2020-05-08 08:00] VITALS: BP 109/77
[2020-05-08] MEDS: MULTIVITAMINS, THERAPEUTIC TABLET PO SCH (08:38)
[2020-05-08] MEDS: TRIAMCINOLONE 0.1% 15 GM CREAM TP SCH ×3 (08:38→16:04)
[2020-05-08] MEDS: FOLIC ACID 1 MG TABLET PO SCH (08:38)
[2020-05-08] MEDS: THIAMINE 100 MG TABLET PO SCH (08:38)
[2020-05-08 18:34] VITALS: BP 120/86
[2020-05-08] MEDS: QUEtiapine FUMARATE 300 MG TABLET PO SCH (20:01)
[2020-05-09 08:00] VITALS: BP 121/59
[2020-05-09] MEDS: MULTIVITAMINS, THERAPEUTIC TABLET PO SCH (08:42)
[2020-05-09] MEDS: TRIAMCINOLONE 0.1% 15 GM CREAM TP SCH ×2 (08:43→11:52)
[2020-05-09] MEDS: FOLIC ACID 1 MG TABLET PO SCH (08:43)
[2020-05-09] MEDS: THIAMINE 100 MG TABLET PO SCH (08:47)
== END 2020-05-09 15:30 | disposition home or self-care (01) | DRG 885 ==
LOC: EMS 13:31 → UNDOADMIN 18:31 → 3EX 18:31 → UNDOADMIN 18:53 → 3EX 20:18 → UNDOADMIN 20:18
PROVIDERS: ADMIT Psychiatry & Neurology Psychiatry; ATTEND Psychiatry & Neurology Psychiatry
DX: F25.9 Schizoaffective disorder, unspecified (principal); B19.20 Unspecified viral hepatitis C without hepatic coma; F10.229 Alcohol dependence with intoxication, unspecified; R45.851 Suicidal ideations; J44.9 Chronic obstructive pulmonary disease, unspecified; E78.5 Hyperlipidemia, unspecified; I10 Essential (primary) hypertension; F41.9 Anxiety disorder, unspecified; G47.00 Insomnia, unspecified; F15.10 Other stimulant abuse, uncomplicated; E78.00 Pure hypercholesterolemia, unspecified; F32.9 Major depressive disorder, single episode, unspecified; Y90.7 Blood alcohol level of 200-239 mg/100 ml; F17.210 Nicotine dependence, cigarettes, uncomplicated; Z91.14 Patient's other noncompliance with medication regimen; Z88.8 Allergy status to other drugs, medicaments and biological substances; Z79.899 Other long term (current) drug therapy
CPT/HCPCS: 87081; G0378; G0480

== ENCOUNTER 2020-07-21 11:40 | Inpatient (IN) | payer MEDICARE, MEDICAID ==
[~2020-07-21] VITALS: Ht 175.3 cm; Wt 94.3 kg
[~2020-07-21 11:40] MED LIST changes: -PALI234D IM; +RISP3TAB35 PO
[2020-07-21 12:22] LABS: BASOPHILS % (AUTO) 0.5 % (0.0-2.0); EOSINOPHILS % (AUTO) 0 % (1.0-6.0); HEMATOCRIT 45.2 % (41-53); HEMOGLOBIN 15.6 g/dL (13.5-17.5); LYMPHOCYTES # (AUTO) 1.3 K/uL (1.0-4.8); LYMPHOCYTES % (AUTO) 17.7 % (22.0-44.0); MEAN CORPUSCULAR HEMOGLOBIN 32.1 pg (26.0-34.0); MEAN CORPUSCULAR HGB CONC 34.6 G/dL (31.0-37.0); MEAN CORPUSCULAR VOLUME 93 fL (80-100); MONOCYTES # (AUTO) 1.1 K/uL (0.1-1.0); MONOCYTES % (AUTO) 14.5 % (2.0-9.0); NEUTROPHILS # (AUTO) 5.1 K/uL (1.8-7.7); NEUTROPHILS % (AUTO) 67.3 % (40.0-70.0); PLATELET COUNT (AUTO) 159 K/uL (150-450); RED BLOOD CELL COUNT(AUTO) 4.87 MIL/uL (4.50-5.90); RED CELL DISTRIBUTION WIDTH 14.4 % (11.5-14.5)
[2020-07-21 12:34] LABS: ANION GAP 16 mmol/L (8-16); CALCIUM, TOTAL 8.6 mg/dL (8.8-10.5); CARBON DIOXIDE 18 mmol/L (22-29); CHLORIDE 99 mmol/L (98-107); CREATININE 0.83 mg/dL (0.60-1.30); GLOMERULAR FILTR. RATE CALC > 60 mL/min (>60); GLUCOSE,RANDOM 130 mg/dL (70-110); POTASSIUM 3.7 mmol/L (3.5-5.1); SODIUM SERUM 133 mmol/L (136-145); UREA NITROGEN, BLOOD 7 mg/dL (7-18)
[2020-07-21 12:42] LABS: COVID AG,FIA SOURCE NASAL SWAB
[2020-07-21] MEDS ORDERED: QUEtiapine FUMARATE 100 MG TABLET PO ONE (12:45)
[2020-07-21 12:50] LABS: ALANINE AMINOTRANSFERASE 468 U/L (12-78); ALBUMIN 3.9 g/dL (3.4-5.0); ALKALINE PHOSPHATASE 81 U/L (46-116); ASPARTATE AMINOTRANSFERASE 216 U/L (15-37); BILIRUBIN,TOTAL 0.4 mg/dL (0.1-1.0); TOTAL PROTEIN, SERUM 7.8 g/dL (6.4-8.2)
[2020-07-21 12:53] LABS: AMPHET/METH SCREEN,URINE NEGATIVE (NEGATIVE); BARBITURATE SCREEN, URINE NEGATIVE (NEGATIVE); BENZODIAZEPINES SCREEN,URINE POSITIVE (NEGATIVE); CANNABINOID SCREEN,URINE NEGATIVE (NEGATIVE); COCAINE SCREEN,URINE NEGATIVE (NEGATIVE); METHADONE SCREEN, URINE NEGATIVE (NEGATIVE); OPIATE SCREEN,URINE NEGATIVE (NEGATIVE)
[2020-07-21 12:59] LABS: PHENCYCLIDINE SCREEN,URINE NEGATIVE (NEGATIVE)
[2020-07-21] MEDS ORDERED: HALOPERIDOL 5 MG TABLET PO PRN (13:15)
[2020-07-21] MEDS ORDERED: ChlordiazePOXIDE HCL 25 MG CAPSULE PO ONE (13:30)
[2020-07-21 18:06] VITALS: BP 125/92
[2020-07-21 19:56] VITALS: BP 125/92
[2020-07-21] MEDS: ZOLPIDEM TARTRATE 10 MG TABLET PO PRN (21:31)
[2020-07-21] MEDS ORDERED: MAGNESIUM HYDROXIDE SUSPENSION 30 ML UDCUP PO PRN (23:15)
[2020-07-21] MEDS ORDERED: MAG HYDROX/AL HYDROX/SIMETH ES 30 ML SUSPENSION UDCUP PO PRN (23:15)
[2020-07-21] MEDS ORDERED: ONDANSETRON HCL 4 MG TABLET PO PRN (23:15)
[2020-07-21] MEDS ORDERED: ACETAMINOPHEN 325 MG TABLET PO PRN (23:15)
[2020-07-21] MEDS ORDERED: CloNIDine HCL 0.1 MG TABLET PO PRN (23:15)
[2020-07-21] MEDS ORDERED: NICOTINE 14 MG/24 HOUR PATCH TD PRN (23:15)
[2020-07-21] MEDS ORDERED: PETROLATUM,WHITE 28 GM JELLY TP PRN (23:15)
[2020-07-21] MEDS ORDERED: GuaiFENesin/D-METHORPHAN [SUGAR-FREE] 200-20MG/10 ML SYRUP UDCUP PO PRN (23:15)
[2020-07-21] MEDS ORDERED: ALBUTEROL SULFATE HFA 90 MCG/PUFF 8 GM INHALER IH PRN (23:15)
[2020-07-21] MEDS ORDERED: DOCUSATE SODIUM 100 MG CAPSULE PO PRN (23:15)
[2020-07-21] MEDS ORDERED: LOPERAMIDE HCL 2 MG CAPSULE PO PRN (23:15)
[2020-07-21] MEDS ORDERED: IBUPROFEN 400 MG TABLET PO PRN (23:15)
[2020-07-22 05:56] VITALS: BP 118/85
[2020-07-22 07:49] LABS: CHOL/HDL RATIO 3.6 (4.2-7.3)
[2020-07-22 08:56] VITALS: BP 140/72
[2020-07-22 16:00] VITALS: BP 116/85
[2020-07-22] MEDS: QUEtiapine FUMARATE 100 MG TABLET PO PRN ×2 (16:28→22:29)
[2020-07-22] MEDS: PALIPERIDONE 6 MG ER TABLET PO SCH (20:41)
[2020-07-22] MEDS: ZOLPIDEM TARTRATE 10 MG TABLET PO PRN (22:29)
[2020-07-23 08:56] VITALS: BP 122/71
[2020-07-23] MEDS: QUEtiapine FUMARATE 100 MG TABLET PO PRN ×3 (10:04→18:36)
[2020-07-23 16:14] VITALS: BP 134/95
[2020-07-23] MEDS: PALIPERIDONE 6 MG ER TABLET PO SCH (20:58)
[2020-07-23] MEDS: ZOLPIDEM TARTRATE 10 MG TABLET PO PRN (21:49)
[2020-07-24 06:33] VITALS: BP 118/65
[2020-07-24 08:52] VITALS: BP 112/64
[2020-07-24] MEDS: QUEtiapine FUMARATE 100 MG TABLET PO PRN ×3 (09:21→20:10)
[2020-07-24 16:00] VITALS: BP 117/87
[2020-07-24] MEDS: PALIPERIDONE 6 MG ER TABLET PO SCH (20:01)
[2020-07-24] MEDS: ZOLPIDEM TARTRATE 10 MG TABLET PO PRN (22:29)
[2020-07-25] MEDS: QUEtiapine FUMARATE 100 MG TABLET PO PRN ×4 (08:43→22:15)
[2020-07-25 09:39] VITALS: BP 125/67
[2020-07-25 17:00] VITALS: BP 115/81
[2020-07-25] MEDS: PALIPERIDONE 6 MG ER TABLET PO SCH (20:51)
[2020-07-26] MEDS: QUEtiapine FUMARATE 100 MG TABLET PO PRN ×4 (04:52→17:36)
[2020-07-26 04:56] VITALS: BP 126/82
[2020-07-26 08:15] VITALS: BP 115/69
[2020-07-26 16:17] VITALS: BP 94/65
[2020-07-26] MEDS: PALIPERIDONE 6 MG ER TABLET PO SCH (20:04)
[2020-07-27 03:37] VITALS: BP 117/81
[2020-07-27] MEDS: QUEtiapine FUMARATE 100 MG TABLET PO PRN ×4 (03:37→16:30)
[2020-07-27 08:00] VITALS: BP 128/86
[2020-07-27 16:15] VITALS: BP 130/79
[2020-07-27] MEDS: PALIPERIDONE 6 MG ER TABLET PO SCH (20:34)
[2020-07-27] MEDS: ZOLPIDEM TARTRATE 10 MG TABLET PO PRN (21:17)
[2020-07-28 01:09] VITALS: BP 120/87
[2020-07-28] MEDS: QUEtiapine FUMARATE 100 MG TABLET PO PRN ×4 (01:09→16:13)
[2020-07-28 09:43] VITALS: BP 135/83
[2020-07-28 16:00] VITALS: BP 125/79
[2020-07-28] MEDS: PALIPERIDONE 6 MG ER TABLET PO SCH (21:02)
[2020-07-28] MEDS: ZOLPIDEM TARTRATE 10 MG TABLET PO PRN (22:33)
[2020-07-29 00:30] VITALS: BP 123/69
[2020-07-29] MEDS: QUEtiapine FUMARATE 100 MG TABLET PO PRN ×5 (00:35→18:08)
[2020-07-29 05:50] VITALS: BP 126/85
[2020-07-29 09:33] VITALS: BP 108/67
[2020-07-29 16:00] VITALS: BP 134/86
[2020-07-29] MEDS ORDERED: QUEtiapine FUMARATE 300 MG TABLET PO SCH (21:00)
[2020-07-29] MEDS: PALIPERIDONE 6 MG ER TABLET PO SCH (21:13)
[2020-07-30 09:24] VITALS: BP 126/82
[2020-07-30 16:00] VITALS: BP 122/74
[2020-07-30] MEDS: QUEtiapine FUMARATE 300 MG TABLET PO SCH (20:18)
[2020-07-30] MEDS: PALIPERIDONE 6 MG ER TABLET PO SCH (20:18)
[2020-07-31 09:25] VITALS: BP 102/66
[2020-07-31 16:30] VITALS: BP 116/83
[2020-07-31] MEDS: PALIPERIDONE 6 MG ER TABLET PO SCH (20:12)
[2020-07-31] MEDS: QUEtiapine FUMARATE 300 MG TABLET PO SCH (20:12)
[2020-08-01 09:08] VITALS: BP 139/83
[2020-08-01 09:21] LABS: EOSINOPHILS % (AUTO) 0.4 % (1.0-6.0); HEMATOCRIT 45.9 % (41-53); HEMOGLOBIN 15.7 g/dL (13.5-17.5); LYMPHOCYTES # (AUTO) 1.5 K/uL (1.0-4.8); LYMPHOCYTES % (AUTO) 19.7 % (22.0-44.0); MEAN CORPUSCULAR HEMOGLOBIN 31.8 pg (26.0-34.0); MEAN CORPUSCULAR HGB CONC 34.3 G/dL (31.0-37.0); MEAN CORPUSCULAR VOLUME 93 fL (80-100); MONOCYTES # (AUTO) 0.6 K/uL (0.1-1.0); MONOCYTES % (AUTO) 8.3 % (2.0-9.0); NEUTROPHILS # (AUTO) 5.4 K/uL (1.8-7.7); NEUTROPHILS % (AUTO) 70.6 % (40.0-70.0); PLATELET COUNT (AUTO) 237 K/uL (150-450); RED BLOOD CELL COUNT(AUTO) 4.94 MIL/uL (4.50-5.90); RED CELL DISTRIBUTION WIDTH 14.1 % (11.5-14.5)
[2020-08-01 10:04] LABS: ALANINE AMINOTRANSFERASE 310 U/L (12-78); ALBUMIN 3.5 g/dL (3.4-5.0); ALKALINE PHOSPHATASE 77 U/L (46-116); ANION GAP 8 mmol/L (8-16); ASPARTATE AMINOTRANSFERASE 100 U/L (15-37); BILIRUBIN,TOTAL 0.3 mg/dL (0.1-1.0); CALCIUM, TOTAL 8.9 mg/dL (8.8-10.5); CARBON DIOXIDE 27 mmol/L (22-29); CHLORIDE 102 mmol/L (98-107); CREATININE 1.05 mg/dL (0.60-1.30); GLOMERULAR FILTR. RATE CALC > 60 mL/min (>60); GLUCOSE,RANDOM 225 mg/dL (70-110); PHOSPHORUS 2.3 mg/dL (2.5-4.9); POTASSIUM 4.8 mmol/L (3.5-5.1); SODIUM SERUM 137 mmol/L (136-145); TOTAL PROTEIN, SERUM 6.6 g/dL (6.4-8.2); UREA NITROGEN, BLOOD 14 mg/dL (7-18)
[2020-08-01 15:40] LABS: COVID AG,FIA SOURCE NASOPHARYNGEAL
[2020-08-01 16:00] VITALS: BP 120/77
[2020-08-01] MEDS: PALIPERIDONE 6 MG ER TABLET PO SCH (20:05)
[2020-08-01] MEDS: QUEtiapine FUMARATE 300 MG TABLET PO SCH (20:06)
[2020-08-02 08:22] LABS: CHOL/HDL RATIO 3.8 (4.2-7.3); THYROID STIMULATING HORMONE 2.02 uIU/mL (0.36-3.74)
[2020-08-02 08:56] VITALS: BP 115/69
[2020-08-02 16:00] VITALS: BP 130/79
[2020-08-02] MEDS: PALIPERIDONE 6 MG ER TABLET PO SCH (20:18)
[2020-08-02] MEDS: QUEtiapine FUMARATE 300 MG TABLET PO SCH (20:18)
[2020-08-03 09:41] VITALS: BP 108/73
[2020-08-03 17:37] VITALS: BP 127/60
[2020-08-03] MEDS: QUEtiapine FUMARATE 300 MG TABLET PO SCH (20:37)
[2020-08-03] MEDS: PALIPERIDONE 6 MG ER TABLET PO SCH (20:37)
[2020-08-04 08:59] VITALS: BP 122/72
[2020-08-04 16:26] VITALS: BP 114/68
[2020-08-04] MEDS: PALIPERIDONE 6 MG ER TABLET PO SCH (20:12)
[2020-08-04] MEDS: QUEtiapine FUMARATE 300 MG TABLET PO SCH (20:12)
[2020-08-05 09:00] VITALS: BP 115/76
[2020-08-05 16:44] VITALS: BP 130/78
[2020-08-05] MEDS: QUEtiapine FUMARATE 300 MG TABLET PO SCH (20:42)
[2020-08-05] MEDS: PALIPERIDONE 6 MG ER TABLET PO SCH (20:42)
[2020-08-06 10:36] VITALS: BP 113/72
[2020-08-06 16:00] VITALS: BP 124/82
[2020-08-06] MEDS: PALIPERIDONE 6 MG ER TABLET PO SCH (20:49)
[2020-08-06] MEDS: QUEtiapine FUMARATE 300 MG TABLET PO SCH (20:49)
[2020-08-07 09:55] VITALS: BP 122/65
[2020-08-07 16:55] VITALS: BP 126/78
[2020-08-07] MEDS: PALIPERIDONE 6 MG ER TABLET PO SCH (20:02)
[2020-08-07] MEDS: QUEtiapine FUMARATE 300 MG TABLET PO SCH (20:02)
[2020-08-08 08:00] VITALS: BP 116/69
[2020-08-08 16:00] VITALS: BP 120/78
[2020-08-08] MEDS: QUEtiapine FUMARATE 300 MG TABLET PO SCH (20:08)
[2020-08-08] MEDS: PALIPERIDONE 6 MG ER TABLET PO SCH (20:08)
[2020-08-09 08:00] VITALS: BP 109/65
[2020-08-09 17:15] VITALS: BP 125/89
[2020-08-09] MEDS: QUEtiapine FUMARATE 300 MG TABLET PO SCH (20:38)
[2020-08-09] MEDS: PALIPERIDONE 6 MG ER TABLET PO SCH (20:38)
[2020-08-10 08:00] VITALS: BP 133/96
[2020-08-10 18:50] VITALS: BP 122/88
[2020-08-10] MEDS: QUEtiapine FUMARATE 300 MG TABLET PO SCH (20:04)
[2020-08-10] MEDS: PALIPERIDONE 6 MG ER TABLET PO SCH (20:04)
[2020-08-11 08:00] VITALS: BP 96/58
[2020-08-11 16:24] VITALS: BP 123/83
[2020-08-11] MEDS: PALIPERIDONE 6 MG ER TABLET PO SCH (20:32)
[2020-08-11] MEDS: QUEtiapine FUMARATE 300 MG TABLET PO SCH (20:32)
[2020-08-12 04:36] VITALS: BP 132/90
[2020-08-12 08:00] VITALS: BP 130/70
[2020-08-12 17:00] VITALS: BP 121/62
[2020-08-12] MEDS: QUEtiapine FUMARATE 300 MG TABLET PO SCH (20:51)
[2020-08-12] MEDS: PALIPERIDONE 6 MG ER TABLET PO SCH (21:10)
[2020-08-13 08:00] VITALS: BP 108/66
[2020-08-13 08:43] VITALS: BP 108/66
[2020-08-13 16:00] VITALS: BP 117/75
[2020-08-13] MEDS: PALIPERIDONE 6 MG ER TABLET PO SCH (20:57)
[2020-08-13] MEDS: QUEtiapine FUMARATE 300 MG TABLET PO SCH (20:57)
[2020-08-14 08:29] VITALS: BP 108/69
[2020-08-14 16:31] VITALS: BP 125/84
[2020-08-14] MEDS: PALIPERIDONE 6 MG ER TABLET PO SCH (20:02)
[2020-08-14] MEDS: QUEtiapine FUMARATE 300 MG TABLET PO SCH (20:02)
[2020-08-15 01:56] VITALS: BP 116/79
[2020-08-15 08:52] VITALS: BP 121/68
[2020-08-15 16:00] VITALS: BP 118/73
[2020-08-15] MEDS: PALIPERIDONE 6 MG ER TABLET PO SCH (20:02)
[2020-08-15] MEDS: QUEtiapine FUMARATE 300 MG TABLET PO SCH (20:03)
[2020-08-16 08:00] VITALS: BP 128/58
[2020-08-16 16:10] VITALS: BP 120/89
[2020-08-16] MEDS: PALIPERIDONE 6 MG ER TABLET PO SCH (20:06)
[2020-08-16] MEDS: QUEtiapine FUMARATE 300 MG TABLET PO SCH (20:07)
[2020-08-17 11:27] VITALS: BP 149/84
[2020-08-17 12:15] VITALS: BP 149/84
[2020-08-17 16:05] VITALS: BP 134/99
[2020-08-17 17:51] LABS: COVID AG,FIA SOURCE NASOPHARYNGEAL
[2020-08-17] MEDS: PALIPERIDONE 6 MG ER TABLET PO SCH (20:04)
[2020-08-17] MEDS: QUEtiapine FUMARATE 300 MG TABLET PO SCH (20:04)
[2020-08-18 16:00] VITALS: BP 137/81
[2020-08-18] MEDS: QUEtiapine FUMARATE 300 MG TABLET PO SCH (20:05)
[2020-08-18] MEDS: PALIPERIDONE 6 MG ER TABLET PO SCH (20:05)
[2020-08-19 08:15] VITALS: BP 112/72
[2020-08-19] MEDS ORDERED: PALI6TAB15 PO (09:20)
== END 2020-08-19 14:00 | disposition home or self-care (01) | DRG 885 ==
LOC: EMS 11:42 → 3EX 13:01 → 3EI 07-22 09:39 → 3EX 08-05 13:30 → 3EI 08-10 16:43
PROVIDERS: ADMIT Psychiatry & Neurology Psychiatry; ATTEND Psychiatry & Neurology Psychiatry
DX: F25.1 Schizoaffective disorder, depressive type (principal); B19.20 Unspecified viral hepatitis C without hepatic coma; R45.851 Suicidal ideations; F31.9 Bipolar disorder, unspecified; F19.10 Other psychoactive substance abuse, uncomplicated; Y90.9 Presence of alcohol in blood, level not specified; F41.9 Anxiety disorder, unspecified; Z20.828 Contact with and (suspected) exposure to other viral communicable diseases; Z88.8 Allergy status to other drugs, medicaments and biological substances; G47.00 Insomnia, unspecified; K59.00 Constipation, unspecified; J44.9 Chronic obstructive pulmonary disease, unspecified; E78.00 Pure hypercholesterolemia, unspecified; I10 Essential (primary) hypertension; F17.210 Nicotine dependence, cigarettes, uncomplicated; F12.90 Cannabis use, unspecified, uncomplicated; F10.20 Alcohol dependence, uncomplicated
CPT/HCPCS: 83735; 84100; 84443; 87426; G0378; G0480

== ENCOUNTER 2020-09-24 08:45 | Emergency (ER) | payer MEDICARE, OTHER ==
[~2020-09-24] VITALS: Ht 175.3 cm; Wt 113.6 kg
[~2020-09-24 08:45] MED LIST changes: +PALI6TAB15 PO; -RISP3TAB35 PO
[2020-09-24 10:21] LABS: AMPHET/METH SCREEN,URINE NEGATIVE (NEGATIVE); BARBITURATE SCREEN, URINE NEGATIVE (NEGATIVE); BENZODIAZEPINES SCREEN,URINE NEGATIVE (NEGATIVE); CANNABINOID SCREEN,URINE NEGATIVE (NEGATIVE); COCAINE SCREEN,URINE NEGATIVE (NEGATIVE); METHADONE SCREEN, URINE NEGATIVE (NEGATIVE); OPIATE SCREEN,URINE NEGATIVE (NEGATIVE)
[2020-09-24 10:27] LABS: PHENCYCLIDINE SCREEN,URINE NEGATIVE (NEGATIVE)
[2020-09-24 10:58] LABS: BASOPHILS % (AUTO) 0.4 % (0.0-2.0); EOSINOPHILS % (AUTO) 0.1 % (1.0-6.0); HEMATOCRIT 47.4 % (41-53); HEMOGLOBIN 15.8 g/dL (13.5-17.5); LYMPHOCYTES # (AUTO) 3.7 K/uL (1.0-4.8); LYMPHOCYTES % (AUTO) 37.9 % (22.0-44.0); MEAN CORPUSCULAR HEMOGLOBIN 31.7 pg (26.0-34.0); MEAN CORPUSCULAR HGB CONC 33.4 G/dL (31.0-37.0); MEAN CORPUSCULAR VOLUME 95 fL (80-100); MONOCYTES # (AUTO) 0.7 K/uL (0.1-1.0); MONOCYTES % (AUTO) 7.5 % (2.0-9.0); NEUTROPHILS # (AUTO) 5.2 K/uL (1.8-7.7); NEUTROPHILS % (AUTO) 54.1 % (40.0-70.0); PLATELET COUNT (AUTO) 232 K/uL (150-450); RED CELL DISTRIBUTION WIDTH 14.4 % (11.5-14.5)
[2020-09-24 11:15] LABS: ANION GAP 11 mmol/L (8-16); CALCIUM, TOTAL 7.9 mg/dL (8.8-10.5); CARBON DIOXIDE 24 mmol/L (22-29); CHLORIDE 105 mmol/L (98-107); CREATININE 0.92 mg/dL (0.60-1.30); GLOMERULAR FILTR. RATE CALC > 60 mL/min (>60); GLUCOSE,RANDOM 140 mg/dL (70-110); POTASSIUM 4.1 mmol/L (3.5-5.1); SODIUM SERUM 140 mmol/L (136-145); UREA NITROGEN, BLOOD 7 mg/dL (7-18)
[2020-09-24 11:20] LABS: ALANINE AMINOTRANSFERASE 474 U/L (12-78); ALBUMIN 3.8 g/dL (3.4-5.0); ALKALINE PHOSPHATASE 93 U/L (46-116); ASPARTATE AMINOTRANSFERASE 194 U/L (15-37); BILIRUBIN,TOTAL 0.1 mg/dL (0.1-1.0); TOTAL PROTEIN, SERUM 7.5 g/dL (6.4-8.2)
[2020-09-24 13:12] VITALS: BP 142/72
== END 2020-09-24 12:00 | disposition home or self-care (01) ==
LOC: EMS 08:45
DX: F10.129 Alcohol abuse with intoxication, unspecified (principal); F31.9 Bipolar disorder, unspecified; E78.00 Pure hypercholesterolemia, unspecified; J44.9 Chronic obstructive pulmonary disease, unspecified; F20.9 Schizophrenia, unspecified; I10 Essential (primary) hypertension; F17.210 Nicotine dependence, cigarettes, uncomplicated; F12.90 Cannabis use, unspecified, uncomplicated; Z88.8 Allergy status to other drugs, medicaments and biological substances; Y90.8 Blood alcohol level of 240 mg/100 ml or more
CPT/HCPCS: 36415; 80053; 80307; 85025; 99283; G0480

== ENCOUNTER → 2022-06-25 | Outpatient (CLI) | payer MEDICARE, MEDICAID ==
[~2022-06-25] MED LIST changes: +DOCU-385 PO; +OMEP20 PO; -PALI6TAB15 PO
== END | disposition home or self-care (01) ==
LOC: LABMN 10:35
PROVIDERS: ATTEND Psychiatry & Neurology Psychiatry
DX: F25.1 Schizoaffective disorder, depressive type (principal)
CPT/HCPCS: 80178

== ENCOUNTER → 2023-04-08 | Outpatient (CLI) | payer MEDICARE, OTHER | END | disposition still patient (30) | LOC: LABMN 09:45 | PROVIDERS: ATTEND Psychiatry & Neurology Psychiatry | DX: F25.9 Schizoaffective disorder, unspecified (principal) | CPT/HCPCS: 80178 ==

== ENCOUNTER → 2024-01-20 | Outpatient (CLI) | payer MEDICARE | END | disposition home or self-care (01) | LOC: LABMN 10:45 | PROVIDERS: ATTEND Psychiatry & Neurology Psychiatry | DX: F25.9 Schizoaffective disorder, unspecified (principal) | CPT/HCPCS: 80178 ==

== ENCOUNTER 2024-02-13 08:22 | Inpatient (IN) | payer MEDICARE, MEDICAID ==
[~2024-02-13] VITALS: Ht 177.8 cm; Wt 99.8 kg
[2024-02-13] MEDS ORDERED: FAMO20 PO (09:47)
[2024-02-13] MEDS ORDERED: ATOR20TA PO (09:47)
[2024-02-13] MEDS ORDERED: GABA-1201 PO (09:47)
[2024-02-13] MEDS ORDERED: QUET100T PO (09:47)
[2024-02-13] MEDS ORDERED: GABA-1181 PO (09:47)
[2024-02-13] MEDS ORDERED: BUSP10TA23 PO (09:47)
[2024-02-13] MEDS ORDERED: LITH600C5 PO (09:47)
[2024-02-13] MEDS ORDERED: SERT-162 PO (09:47)
[2024-02-13] MEDS ORDERED: OLANZapine 5 MG RAPDIS TABLET PO PRN (10:45)
[2024-02-13] MEDS ORDERED: LORazepam 2 MG TABLET PO PRN (10:45)
[2024-02-13] MEDS ORDERED: ZOLPIDEM TARTRATE 10 MG TABLET PO PRN (10:45)
[2024-02-13] MEDS ORDERED: CHOL200074 PO (11:30)
[2024-02-13 13:30] VITALS: BP 126/56; PULSE 80; RESP 18; TEMP 98; O2SAT 98
[2024-02-13] MEDS ORDERED: PROMETHAZINE HCL 25 MG TABLET PO PRN (13:30)
[2024-02-13] MEDS ORDERED: GuaiFENesin/D-METHORPHAN [SUGAR-FREE] 200-20MG/10 ML SYRUP UDCUP PO PRN (13:30)
[2024-02-13] MEDS ORDERED: MAG HYDROX/ALUMINUM HYD/SIMETH ES 30 ML SUSPENSION UDCUP PO PRN (13:30)
[2024-02-13] MEDS ORDERED: ACETAMINOPHEN 325 MG TABLET PO PRN (13:30)
[2024-02-13] MEDS ORDERED: HydrOXYzine PAMOATE 50 MG CAPSULE PO PRN (13:30)
[2024-02-13] MEDS ORDERED: MAGNESIUM HYDROXIDE SUSPENSION 30 ML UDCUP PO PRN (13:30)
[2024-02-13] MEDS ORDERED: DIAZEPAM 10 MG TABLET PO PRN (13:30)
[2024-02-13] MEDS ORDERED: LOPERAMIDE HCL 2 MG CAPSULE PO PRN (13:30)
[2024-02-13 14:30] VITALS: BP 132/69; PULSE 88; RESP 18; TEMP 97.5; O2SAT 98
[2024-02-13 15:30] VITALS: BP 128/82; PULSE 92; RESP 18; TEMP 98.1; O2SAT 97
[2024-02-13] MEDS: HALOPERIDOL LACTATE 5 MG/ML VIAL IM ONE (15:52)
[2024-02-13] MEDS: DiphenhydrAMINE HCL 50 MG/ML VIAL IM ONE (15:53)
[2024-02-13] MEDS: LORazepam 2 MG/ML VIAL IM ONE (15:53)
[2024-02-13 16:30] VITALS: BP 132/82; PULSE 89; RESP 18; TEMP 98.4; O2SAT 98
[2024-02-13] MEDS: LITHIUM CARBONATE 300 MG CAPSULE PO SCH (16:44)
[2024-02-13] MEDS: THIAMINE 100 MG TABLET PO SCH (16:44)
[2024-02-13] MEDS: GABAPENTIN 400 MG CAPSULE PO SCH ×2 (16:44→23:30)
[2024-02-13] MEDS: BusPIRone HCL 10 MG TABLET PO SCH (16:45)
[2024-02-13 17:24] VITALS: BP 138/88; PULSE 69; RESP 20; TEMP 97.8; O2SAT 99
[2024-02-13] MEDS: QUEtiapine FUMARATE 100 MG TABLET PO SCH (17:45)
[2024-02-13 20:30] VITALS: BP 119/82; PULSE 98; RESP 17; TEMP 98.3; O2SAT 98
[2024-02-13] MEDS: MELATONIN 5 MG TABLET PO SCH (23:30)
[2024-02-13] MEDS: QUEtiapine FUMARATE 300 MG TABLET PO SCH (23:30)
[2024-02-14] VITALS (8 sets, daily range): BP systolic 108–149; BP diastolic 63–82; PULSE 56–85; RESP 17–20; TEMP 97–98.1; O2SAT 90–98
[2024-02-14] MEDS ORDERED: DIAZEPAM 10 MG TABLET PO PRN (07:00)
[2024-02-14] MEDS: DIAZEPAM 10 MG TABLET PO SCH (09:02)
[2024-02-14] MEDS: MULTIVITAMINS WITH MINERALS, THERAPEUTIC TABLET PO SCH (09:02)
[2024-02-14] MEDS: FOLIC ACID 1 MG TABLET PO SCH (09:02)
[2024-02-14] MEDS: SERTRALINE HCL 100 MG TABLET PO SCH (09:02)
[2024-02-14] MEDS: OMEGA-3/DHA/EPA/FISH OIL 1,000 MG CAPSULE PO SCH (09:02)
[2024-02-14] MEDS: NALTREXONE HCL 50 MG TABLET PO SCH (09:02)
[2024-02-14] MEDS: NICOTINE 21 MG/24 HOUR PATCH TD SCH (09:11)
[2024-02-14] MEDS: AZITHROMYCIN 250 MG TABLET PO ONE (12:31)
[2024-02-14] MEDS: CYANOCOBALAMIN 1,000 MCG/ML VIAL IM ONE ×2 (12:31)
[2024-02-15] MEDS: AZITHROMYCIN 250 MG TABLET PO SCH (08:45)
[2024-02-15 12:14] VITALS: BP 140/90; PULSE 82; RESP 19; TEMP 97.8; O2SAT 96
[2024-02-15] MEDS: TUBERCULIN, PURIFIED PROTEIN DERIVATIVE 5 TU/0.1 ML SYRINGE ID ONE (19:31)
[2024-02-15 23:50] VITALS: BP 144/94; PULSE 95; RESP 17; TEMP 98.1; O2SAT 99
[2024-02-16] MEDS ORDERED: DIAZEPAM 5 MG TABLET PO PRN (07:00)
[2024-02-16 09:12] LABS: APPEARANCE,URINE CLEAR (CLEAR); BILIRUBIN,URINE NEGATIVE (NEGATIVE); COLOR,URINE YELLOW (YELLOW); GLUCOSE, URINE (UA) 150-200 mg/dL (NEGATIVE); KETONES,URINE NEGATIVE (NEGATIVE); LEUKOCYTE ESTERASE ,URINE SMALL (NEGATIVE); NITRATE,URINE NEGATIVE (NEGATIVE); OCCULT BLOOD,URINE NEGATIVE (NEGATIVE); PH,URINE 7.5 (5.0-8.0); PROTEIN,URINE NEGATIVE (NEGATIVE); SPECIFIC GRAVITIY, URINE 1.015 (1.003-1.030)
[2024-02-16 09:15] VITALS: BP 117/76; PULSE 95; RESP 17; TEMP 98.2; O2SAT 95
[2024-02-16 09:51] LABS: BACTERIA,URINE None Seen /HPF (None Seen); RBC,URINE None Seen /HPF (0-2)
[2024-02-16] MEDS: DIAZEPAM 5 MG TABLET PO SCH (10:11)
[2024-02-16] MEDS ORDERED: LOPERAMIDE HCL 2 MG CAPSULE PO PRN (13:30)
[2024-02-16 22:30] VITALS: BP 145/86; PULSE 92; RESP 18; TEMP 97.9; O2SAT 97
[2024-02-17 08:44] LABS: CHOL/HDL RATIO 3.9 (4.2-7.3); FREE T4 (FREE THYROXINE) 0.66 ng/dL (0.76-1.46); THYROID STIMULATING HORMONE 3.14 uIU/mL (0.36-3.74)
[2024-02-17 09:07] VITALS: BP 133/105; PULSE 68; RESP 17; TEMP 97.7; O2SAT 97
[2024-02-17 10:07] VITALS: BP 130/80; PULSE 76; RESP 17; TEMP 97.6; O2SAT 96
[2024-02-17] MEDS: DIAZEPAM 5 MG TABLET PO PRN (12:33)
[2024-02-17] MEDS ORDERED: GABA-1201 PO ×2 (15:27)
[2024-02-17] MEDS ORDERED: MELA5TAB40 PO (15:27)
[2024-02-17] MEDS ORDERED: LITH300C3 PO (15:27)
[2024-02-17] MEDS ORDERED: BUSP10TA23 PO (15:27)
[2024-02-17] MEDS ORDERED: QUET300T19 PO (15:28)
[2024-02-17] MEDS ORDERED: QUET100T34 PO (15:28)
[2024-02-17] MEDS ORDERED: OMEG-135 PO (15:28)
[2024-02-17] MEDS ORDERED: SERT-440 PO (15:28)
[2024-02-17] MEDS ORDERED: NALT50TA33 PO (15:28)
[2024-02-17] MEDS: LITHIUM CARBONATE 600 MG CAPSULE PO SCH (17:22)
[2024-02-17] MEDS: GEMFIBROZIL 600 MG TABLET PO SCH (17:22)
[2024-02-17] MEDS: BusPIRone HCL 15 MG TABLET PO SCH (17:23)
[2024-02-17] MEDS: QUEtiapine FUMARATE 200 MG TABLET PO SCH (20:10)
[2024-02-17 20:46] VITALS: BP 140/90; PULSE 75; RESP 18; TEMP 97.9; O2SAT 96
[2024-02-18 08:20] LABS: BASOPHILS % (AUTO) 0.4 % (0.0-2.0); EOSINOPHILS % (AUTO) 3.3 % (1.0-6.0); HEMATOCRIT 49.8 % (41-53); HEMOGLOBIN 16.7 g/dL (13.5-17.5); LYMPHOCYTES # (AUTO) 2.3 K/uL (1.0-4.8); LYMPHOCYTES % (AUTO) 26.8 % (22.0-44.0); MEAN CORPUSCULAR HEMOGLOBIN 31.2 pg (26.0-34.0); MEAN CORPUSCULAR HGB CONC 33.4 G/dL (31.0-37.0); MEAN CORPUSCULAR VOLUME 93 fL (80-100); MONOCYTES # (AUTO) 0.9 K/uL (0.1-1.0); MONOCYTES % (AUTO) 10.4 % (2.0-9.0); NEUTROPHILS # (AUTO) 5.1 K/uL (1.8-7.7); NEUTROPHILS % (AUTO) 59.1 % (40.0-70.0); PLATELET COUNT (AUTO) 172 K/uL (150-450); RED BLOOD CELL COUNT(AUTO) 5.33 MIL/uL (4.50-5.90); RED CELL DISTRIBUTION WIDTH 13.8 % (11.5-14.5); WHITE BLOOD COUNT (AUTO) 8.7 K/uL (4.5-11.0)
[2024-02-18] MEDS: QUEtiapine FUMARATE 100 MG TABLET PO SCH (08:54)
[2024-02-18] MEDS: GABAPENTIN 400 MG CAPSULE PO SCH (08:55)
[2024-02-18 09:22] VITALS: BP 141/80; PULSE 80; RESP 17; TEMP 98.5; O2SAT 100
[2024-02-19 07:07] LABS: HEPATITIS A ANTIBODY IGM Negative (Negative); HEPATITIS B CORE IGM Negative (Negative)
== END 2024-02-18 10:53 | disposition home or self-care (01) | DRG 885 ==
LOC: B2X 13:04
PROVIDERS: ADMIT Psychiatry & Neurology Psychiatry; ATTEND Psychiatry & Neurology Psychiatry
PROC: GZHZZZZ Group Psychotherapy (ICD-10-PCS; principal; 2024-02-13)
PROC: GZ56ZZZ Individual Psychotherapy, Supportive (ICD-10-PCS; 2024-02-13)
DX: F25.9 Schizoaffective disorder, unspecified (principal); B19.20 Unspecified viral hepatitis C without hepatic coma; R45.851 Suicidal ideations; I10 Essential (primary) hypertension; J44.9 Chronic obstructive pulmonary disease, unspecified; K21.9 Gastro-esophageal reflux disease without esophagitis; E78.00 Pure hypercholesterolemia, unspecified; F10.20 Alcohol dependence, uncomplicated; F43.10 Post-traumatic stress disorder, unspecified; F41.9 Anxiety disorder, unspecified; Z79.899 Other long term (current) drug therapy; Z55.9 Problems related to education and literacy, unspecified; Z59.9 Problem related to housing and economic circumstances, unspecified; Z63.9 Problem related to primary support group, unspecified; Z65.3 Problems related to other legal circumstances; Z91.148 Patient's other noncompliance with medication regimen for other reason; Z91.51 Personal history of suicidal behavior; Z88.8 Allergy status to other drugs, medicaments and biological substances
CPT/HCPCS: 80061; 80074; 81001; 82140; 84439; 84443; 85025; J1200; J1630; J2060; J3420; Q9967